=== PATIENT | male | born 1940 | race Caucasian/White ===

== ENCOUNTER 2021-10-31 16:25 | Observation (INO) | payer OTHER, SELFPAY ==
--- NOTE | 2021-10-31 16:50 | DI.RAD.S_ITS ---
PROCEDURE: XR CHEST 1V INDICATIONS: chest pain TECHNIQUE: One view of the chest was acquired. COMPARISON: None. FINDINGS: Surgical changes and devices: None. Lungs and pleura: Lungs are clear. No pleural effusions or pneumothorax. Mediastinum: Mediastinal contours appear normal. Heart size is normal. Bones and chest wall: No suspicious bony lesions. Overlying soft tissues appear unremarkable. IMPRESSION: No acute cardiopulmonary abnormality. Dictated by: Sukumar Kennedy M.D. on 10/31/2021 at 16:54 Approved by: Sukumar Kennedy M.D. on 10/31/2021 at 16:54
[2021-10-31] MEDS: SODIUM CHLORIDE 0.9% 1,000 ML 1000 ML IV (17:20)
[2021-10-31 17:22] VITALS: BP 166/77; PULSE 116; RESP 24; TEMP 39.3; O2SAT 95; BMI 30.3
[2021-10-31 17:39] LABS: Add Manual Diff / Slide Review NO; Basophils Absolute Auto 100 /uL (0-100); Basophils Percent Auto 0.4 % (0-2); Eosinophils Absolute Auto 0 /uL (0-450); Eosinophils Percent Auto 0.2 % (2-4); Hematocrit 41.1 % (41-53); Hemoglobin 13.5 g/dL (13.5-17.5); Lymphocytes Absolute Auto 400 /uL (1100-4500); Lymphocytes Percent Auto 2.5 % (25-40); Mean Corpuscular HGB Conc 32.8 % (30-36); Mean Corpuscular Hemoglobin 33.5 PG (26-34); Monocytes Absolute Auto 300 /uL (0-900); Neutrophils Absolute Auto 15500 /uL (1500-7000); Neutrophils Percent Auto 94.9 % (50-75); Platelet Count 205 X10^3/uL (150-400); Red Blood Cell Count 4.03 X10^6/uL (4.5-5.9); Red Cell Distribution Width 14.7 % (11.6-14.8); White Blood Cell Count 16.4 X10^3/uL (4.5-11.0)
[2021-10-31 18:09] LABS: Alanine Aminotransferase 20 IU/L (<50); Albumin 4.1 g/dL (3.5-5.0); Albumin Globulin Ratio 1.3 (1.0-2.8); Alkaline Phosphatase 63 U/L (38-126); Aspartate Aminotransferase 39 IU/L (17-59); BUN Creatinine Ratio 17.8 (6-22); Bilirubin Total 0.8 mg/dL (0.2-1.3); Blood Urea Nitrogen 31 mg/dL (9-20); Calcium 8.9 mg/dL (8.4-10.2); Carbon Dioxide 16 mmol/L (22-32); Chloride 109 mmol/L (98-107); Estimated Glomerular Filt Rate 39 mL/min (>60); Globulin 3.2 g/dL (1.7-4.1); Glucose 184 mg/dL (80-110); Lipase 267 U/L (23-300); Potassium 4.7 mmol/L (3.4-5.1); Sodium 139 mmol/L (137-145); Total Protein 7.3 g/dL (6.3-8.2)
[2021-10-31 18:12] LABS: HEMOLYSIS 89 (0-50)
--- NOTE | 2021-10-31 18:15 | ED.GENADULT ---
HPI - General Adult General Chief complaint: Fever Stated complaint: Tremors Time Seen by Provider: 10/31/21 17:59 Source: patient and family Mode of arrival: Wheelchair History of Present Illness HPI narrative: 81-year-old male. Is an insulin-dependent diabetic. Was at his normal state of health when he was walking and had a sudden onset of what he states for tremors. States it started not feel very well when the symptoms started. It did involve both his upper and lower extremities. Symptoms lasted about 1.5 hours. He reported no chest pain, palpitations, vision changes, headache, shortness of breath, abdominal pain, nausea vomiting, urinary symptoms or skin rash. He does have back pain but this is not new for him. He currently feels much better than when the symptoms were present. Has not tried anything for symptoms prior to arrival. Related Data Home Medications Medication Instructions Recorded Confirmed allopurinol 100 mg tablet 100 mg PO BEDTIME 10/31/21 10/31/21 atorvastatin 10 mg tablet 10 mg PO BEDTIME 10/31/21 10/31/21 bupropion HCl 150 mg tablet,12 hr 150 mg PO BEDTIME 10/31/21 10/31/21 sustained-release dulaglutide 0.75 mg/0.5 mL 0.75 mg SUBCUT QWEEK 10/31/21 10/31/21 subcutaneous pen injector (Trulicity) finasteride 5 mg tablet 5 mg PO BEDTIME 10/31/21 10/31/21 glyburide 5 mg tablet 6 mg PO DAILY 10/31/21 10/31/21 insulin glargine 100 unit/mL (3 28 unit SUBCUT QPM 10/31/21 10/31/21 mL) subcutaneous pen (Lantus Solostar U-100 Insulin) lisinopril 10 mg tablet 10 mg PO DAILY 10/31/21 10/31/21 lisinopril 10 mg tablet 10 mg PO DAILY 10/31/21 10/31/21 tamsulosin 0.4 mg capsule 0.8 mg PO BEDTIME 10/31/21 10/31/21 Allergies Allergy/AdvReac Type Severity Reaction Status Date / Time No Known Drug Allergies Allergy Verified 10/31/21 18:41 Review of Systems Review of Systems ROS Unobtainable: All systems reviewed & are unremarkable except as noted in HPI and below Patient History Medical History Insulin dependent diabetes mellitus Social History household members: significant other Smoking Status: Never smoker alcohol intake: former Smoking Status: Never smoker alcohol intake frequency: 0-2 drinks per day Substance Use Type: does not use Exam Initial Vital Signs Initial Vital Signs: Vital Signs Temperature 102.7 F H 10/31/21 17:22 Pulse Rate 116 H 10/31/21 17:22 Respiratory Rate 24 10/31/21 17:22 Blood Pressure 166/77 H 10/31/21 17:22 Pulse Oximetry 95 10/31/21 17:22 Oxygen Delivery Method 10/31/21 17:22 Const General: cooperative, comfortable and well developed HENDE Head: normal to inspection and normocephalic Chest Chest: normal inspection of the chest Resp Effort & Inspection: normal respiratory effort Auscultation: clear to auscultation bilaterally Cardio Rate: regular rate Rhythm: regular rhythm GI Inspection: normal to inspection Palpation: soft and No tender Skin General: no rashes or lesions noted Neuro General: patient alert, patient awake, patient oriented x3 and moves all extremities Speech: speech normal Extrem General: normal to inspection and capillary refill normal Psych Appearance: grossly normal Scores GCS [place] coma scale eye opening: Spontaneous Karen coma scale verbal response: Orientated Karen coma scale motor response: Obey commands Karen coma scale total score: 15 Course Orders Ordered: ED Orders 10/31/21 16:50 XR chest 1V Stat EKG-12 Lead Stat 10/31/21 17:00 Complete Blood Count AUTO DIFF Stat Lactate (Lactic Acid) Stat 10/31/21 17:15 Blood Culture Stat 10/31/21 17:18 Comprehensive Metabolic Panel Stat Lipase Stat Procalcitonin Stat 10/31/21 18:39 COVID19 -Nasal RAPID/Pre-Proc Stat 10/31/21 19:21 Urine Culture Stat Urine Microscopic Stat Atorvastatin Calcium (Atorvastatin 20 Mg Tablet) 10 mg PO BEDTIME VINAY Last Admin: 10/31/21 23:44 Dose: 10 mg Documented By: VEENA Bupropion HCl (Bupropion Sr 150 Mg Tab) 150 mg PO BEDTIME VINAY Last Admin: 10/31/21 23:44 Dose: 150 mg Documented By: VEENA Dextrose (Dextrose 50 % In Water 25 Gm/50 Ml Syringe) 25 gm IV PRN PRN PRN Reason: Hypoglycemia Enoxaparin Sodium (Enoxaparin 30 Mg/0.3 Ml Syringe) 30 mg SUBCUT DAILY VINAY Finasteride (Finasteride 5 Mg Tablet) 5 mg PO BEDTIME VINAY Last Admin: 10/31/21 23:44 Dose: 5 mg Documented By: VEENA Sodium Chloride (Normal Saline 0.9%) 1,000 mls @ 100 mls/hr IV CONT VINAY Last Admin: 10/31/21 22:12 Dose: Not Given Documented By: VEENA Insulin Glargine (Insulin Glargine 100 Unit/Ml 3ml Pen) 28 unit SUBCUT BEDTIME VINAY Last Admin: 10/31/21 22:42 Dose: 28 unit Documented By: VEENA Co-signed By: GUIDO Insulin Human Lispro (Insulin Lispro 100 Unit/Ml 3ml Vial) 0 unit SUBCUT ACHS [facility]; Protocol Lisinopril (Lisinopril 10 Mg Tablet) 10 mg PO DAILY [facility] Tamsulosin HCl (Tamsulosin 0.4 Mg Capsule) 0.8 mg PO BEDTIME [facility] Last Admin: 10/31/21 23:44 Dose: 0.8 mg Documented By: VEENA Discontinued Medications Acetaminophen (Acetaminophen 325 Mg Tablet) 650 mg PO NOW ONE Stop: 10/31/21 18:11 Last Admin: 10/31/21 18:27 Dose: Not Given Documented By: HAL Amlodipine Besylate (Amlodipine 5 Mg Tablet) 5 mg PO BEDTIME [facility] Last Admin: 10/31/21 23:36 Dose: Not Given Documented By: VEENA Sodium Chloride (Normal Saline 0.9%) 1,000 mls @ 1,000 mls/hr IV BOLUS ONE Stop: 10/31/21 18:17 Last Infusion: 10/31/21 18:28 Dose: 0 mls/hr Documented By: Admin: 10/31/21 17:20 Dose: 1,000 mls/hr Documented By: HAL Vancomycin HCl (Vancomycin) 1,000 mg in 200 mls @ 200 mls/hr IV NOW ONE Stop: 10/31/21 19:06 Last Admin: 10/31/21 19:14 Dose: Not Given Documented By: HAL Ceftriaxone Sodium 1,000 mg/ (Sodium Chloride) 100 mls @ 200 mls/hr IV NOW ONE Stop: 10/31/21 18:08 Last Infusion: 10/31/21 19:13 Dose: 0 mls/hr Documented By: Admin: 10/31/21 18:35 Dose: 200 mls/hr Documented By: HAL Sodium Chloride (Normal Saline 0.9%) 1,000 mls @ 150 mls/hr IV CONT VINAY Last Infusion: 10/31/21 21:30 Dose: 100 mls/hr Documented By: Admin: 10/31/21 18:36 Dose: 150 mls/hr Documented By: HAL Vancomycin HCl/Dextrose (Vancomycin) 2,000 mg in 400 mls @ 200 mls/hr IV NOW ONE Stop: 10/31/21 20:38 Last Infusion: 10/31/21 21:02 Dose: 0 mls/hr Documented By: Admin: 10/31/21 19:15 Dose: 200 mls/hr Documented By: HAL Insulin Glargine (Insulin Glargine 100 Unit/Ml 3ml Pen) 28 unit SUBCUT QPM [facility] Tamsulosin HCl (Tamsulosin 0.4 Mg Capsule) 0.4 mg PO BEDTIME [facility] Last Admin: 10/31/21 23:48 Dose: Not Given Documented By: VEENA Vital Signs Vital signs: Vital Signs - 8 hr 10/31/21 17:22 10/31/21 18:29 Temperature 102.7 F H 99.6 F Pulse Rate 116 H 95 H Respiratory Rate 24 20 Blood Pressure 166/77 H 154/71 H Pulse Oximetry 95 98 Oxygen Delivery Method Room Air Room Air Medical Decision Making Lab Data Lab results reviewed: Yes I reviewed the patient's lab results. Result diagrams: 10/31/21 17:00 10/31/21 17:18 Labs: Lab Results 10/31/21 10/31/21 10/31/21 Range/Units 17:00 17:00 17:00 WBC 16.4 H (4.5-11.0) X10^3/uL RBC 4.03 L (4.5-5.9) X10^6/uL Hgb 13.5 (13.5-17.5) g/dL Hct 41.1 (41-53) % MCV 102.0 H (80-100) fL MCH 33.5 (26-34) PG MCHC 32.8 (30-36) % RDW 14.7 (11.6-14.8) % Plt Count 205 (150-400) X10^3/uL Neut % (Auto) 94.9 H (50-75) % Lymph % (Auto) 2.5 L (25-40) % [place] % (Auto) 2.0 L (3-14) % Eos % (Auto) 0.2 L (2-4) % Baso % (Auto) 0.4 (0-2) % Neut # (Auto) 23180 H (2158-5767) /uL Lymph # (Auto) 400 L (6952-8854) /uL [place] # (Auto) 300 (0-900) /uL Eos # (Auto) 0 (0-450) /uL Baso # (Auto) 100 (0-100) /uL Sodium Cancelled Potassium Cancelled Chloride Cancelled Carbon Dioxide Cancelled BUN Cancelled Creatinine Cancelled Estimated GFR Cancelled BUN/Creatinine Ratio Cancelled Glucose Cancelled Lactate 2.0 (0.7-2.1) mmol/L Calcium Cancelled Magnesium Cancelled Total Bilirubin Cancelled AST Cancelled ALT Cancelled Alkaline Phosphatase Cancelled Total Creatine Kinase Cancelled CK-MB (CK-2) Cancelled CK-MB (CK-2) Rel Index Cancelled Troponin I Cancelled Total Protein Cancelled Albumin Cancelled Globulin Cancelled Albumin/Globulin Ratio Cancelled Lipase Cancelled Procalcitonin (<0.5) ng/mL Urine RBC (0-5/HPF) Urine WBC (0-5/HPF) Ur Squamous Epith Cells (0-5/HPF) Amorphous Sediment Urine Bacteria (None) Ur Culture Indicated? SARS-CoV-2 (PCR) (Negative) 10/31/21 10/31/21 10/31/21 Range/Units 17:18 18:39 19:21 WBC (4.5-11.0) X10^3/uL RBC (4.5-5.9) X10^6/uL Hgb (13.5-17.5) g/dL Hct (41-53) % MCV (80-100) fL MCH (26-34) PG MCHC (30-36) % RDW (11.6-14.8) % Plt Count (150-400) X10^3/uL Neut % (Auto) (50-75) % Lymph % (Auto) (25-40) % [place] % (Auto) (3-14) % Eos % (Auto) (2-4) % Baso % (Auto) (0-2) % Neut # (Auto) (3123-7857) /uL Lymph # (Auto) (3456-7294) /uL [place] # (Auto) (0-900) /uL Eos # (Auto) (0-450) /uL Baso # (Auto) (0-100) /uL Sodium 139 Potassium 4.7 Chloride 109 H Carbon Dioxide 16 L BUN 31 H Creatinine 1.74 H Estimated GFR 39 L BUN/Creatinine Ratio 17.8 Glucose 184 H Lactate (0.7-2.1) mmol/L Calcium 8.9 Magnesium Total Bilirubin 0.8 AST 39 ALT 20 Alkaline Phosphatase 63 Total Creatine Kinase CK-MB (CK-2) CK-MB (CK-2) Rel Index Troponin I Total Protein 7.3 Albumin 4.1 Globulin 3.2 Albumin/Globulin Ratio 1.3 Lipase 267 Procalcitonin 0.75 H (<0.5) ng/mL Urine RBC 5-10/hpf H (0-5/HPF) Urine WBC 1-5/hpf (0-5/HPF) Ur Squamous Epith Cells None seen (0-5/HPF) Amorphous Sediment 3+ Urine Bacteria None seen (None) Ur Culture Indicated? Cult not indicated SARS-CoV-2 (PCR) Negative (Negative) Urine Dip Bedside Urine Glucose 1000 mg/dl Bedside Urine Bilirubin - Negative Bedside Urine Ketone - Negative Urine Specific [place] 1.020 Bedside Urine Occult Blood ++ Bedside Urine pH 6.0 Bedside Urine Protein + 30 Bedside Urine Urobilinogen - Negative Bedside Urine Nitrite - Negative Bedside Urine Leukocytes - Negative Esterase Point of care testing: Urine Dip Bedside Urine Glucose 1000 mg/dl Bedside Urine Bilirubin - Negative Bedside Urine Ketone - Negative Urine Specific [place] 1.020 Bedside Urine Occult Blood ++ Bedside Urine pH 6.0 Bedside Urine Protein + 30 Bedside Urine Urobilinogen - Negative Bedside Urine Nitrite - Negative Bedside Urine Leukocytes - Negative Esterase Imaging Data Chest x-ray: Radiologist's Impression: [address] [id number] XRay Report Signed Patient: Richie Manrique MR#: [id number] : 1940 Acct:[id number] Age/Sex: 81 / M Date of Service: 10/31/21 Loc: ED Accession Number: [id number] ?? Procedure: XR chest 1V Ordering Provider: Divya Parikh D.O. PROCEDURE:? XR CHEST 1V ? INDICATIONS:? chest pain ? TECHNIQUE:? One view of the chest was acquired.? ? COMPARISON:? None. ? FINDINGS:? ? Surgical changes and devices:? None.? ? Lungs and pleura:? Lungs are clear.? No pleural effusions or pneumothorax.? ? Mediastinum:? Mediastinal contours appear normal.? Heart size is normal.? ? Bones and chest wall:? No suspicious bony lesions.? Overlying soft tissues appear unremarkable.? ? IMPRESSION:? No acute cardiopulmonary abnormality. ? ? Dictated by: Sukumar Kennedy M.D. on 10/31/2021 at 16:54 ? ? Approved by: Sukumar Kennedy M.D. on 10/31/2021 at 16:54? ECG Data Attestation: I personally reviewed and interpreted this ECG as follows: Interpretation: Sinus tachycardia Ventricular rate 105 Normal axis Normal QRS Right bundle branch block Occasional PAC MDM Narrative Medical decision making narrative: I initiated care the patient after he had been in the emergency department for 1.5 hours. Was found to be tachycardic and febrile. Does have leukocytosis. His tachycardia and fever improved with Tylenol and fluids. Blood cultures were obtained. Urine culture obtained. Patient administered antibiotics. Does have an elevated procalcitonin. No specific source of infection found on workup. Given his age, history of diabetes, lack of definitive etiology patient does require admission to the hospital for antibiotics until blood cultures are resulted. I suspect that the tremors that brought him into the emergency department were actually rigors secondary to his fever which is concerning about bacteremia. Did consider a spinal etiology of his symptoms given his back pain but he states that his back pain that he is having is his baseline. Hold on any abdominal CT scan for now. Patient not hypotensive. Will hold on 30 cc/kilos fluid given his age and normal lactate and lack of hypotension. Discussed the need for admission the hospital inpatient expressed understanding and agreement. Discussed case with RAMON Spencer the [facility] provider who will admit for further evaluation and treatment. Discharge Plan Departure Patient Disposition: Admitted as Observation Clinical Impression: Fever of unknown origin, Insulin dependent diabetes mellitus Admit Date/Time: 10/31/21 20:39 Admit Provider: Kayley Spencer
[2021-10-31 18:25] LABS: Procalcitonin 0.75 ng/mL (<0.5)
[2021-10-31 18:29] VITALS: BP 154/71; PULSE 95; RESP 20; TEMP 37.6; O2SAT 98
[2021-10-31] MEDS: cefTRIAXone 1,000 MG in SODIUM CHLORIDE 0.9% 100 ML 200 MG IV (18:35)
[2021-10-31] MEDS: SODIUM CHLORIDE 0.9% 1,000 ML 150 ML IV (18:36)
[2021-10-31] MEDS: VANCOMYCIN 2,000 MG/400 ML PIGGYBACK 200 MG IV (19:15)
[2021-10-31 19:29] LABS: COVID19 -Nasal RAPID Negative (Negative)
[2021-10-31 20:37] LABS: Amorphous Sediment Urine 3+; Bacteria Urine None Seen; Culture Indicated Urine Cult Not Indicated; RBC Urine 5-10/HPF (0-5/HPF); Squamous Epithelial Cell Urine None Seen (0-5/HPF); WBC Urine 1-5/HPF (0-5/HPF)
[2021-10-31 20:45] VITALS: BP 122/57; PULSE 100; RESP 20; O2SAT 96
[2021-10-31 21:03] VITALS: BP 122/66; PULSE 104; RESP 20; TEMP 36.9; O2SAT 95
[2021-10-31 21:25] VITALS: BP 117/56; PULSE 95; RESP 20; TEMP 36.9; O2SAT 96
[2021-10-31 21:29] VITALS: BMI 31.9
[2021-10-31 22:39] LABS: C-Reactive Protein Quant 2.9 mg/dL (<1.0); Magnesium 1.7 mg/dL (1.6-2.3)
[2021-10-31] MEDS: INSULIN GLARGINE 100 UNIT/ML 3ML PEN 28 UNIT SUBCUT (22:42)
[2021-10-31 22:43] LABS: Hemoglobin A1C% w Est Avg Glu 6.9 % (4.0-6.0)
[2021-10-31 22:44] LABS: Lactate Dehydrogenase 349 U/L (313-618)
[2021-10-31 22:45] LABS: NT-proBNP (BNP-Adult 18+) 637 pg/mL (<450)
[2021-10-31 22:50] LABS: Erythrocyte Sedimentation Rate 22 MM/HR (0-15)
--- NOTE | 2021-10-31 22:53 | PC.ADMIT ---
[id number] [address] Admission Note: The patient,Richie Manrique,81 y/o, was given written information regarding hospital policies, unit procedures and contact persons. Patient's smoking status: Never smoker. Vital Signs - 8 hr 10/31/21 17:22 10/31/21 18:29 10/31/21 20:45 Temperature 102.7 F H 99.6 F Pulse Rate 116 H 95 H 100 H Respiratory Rate 24 20 20 Blood Pressure 166/77 H 154/71 H 122/57 L Pulse Oximetry 95 98 96 Oxygen Delivery Method Room Air Room Air Room Air Oxygen Flow Rate 10/31/21 21:03 10/31/21 21:25 10/31/21 22:50 Temperature 98.5 F 98.5 F Pulse Rate 104 H 95 H Respiratory Rate 20 20 Blood Pressure 122/66 117/56 L Pulse Oximetry 95 96 Oxygen Delivery Method Room Air Room Air Oxygen Flow Rate 0 Patient admitted to room 213 from ER per stretcher; able to stand up and walk to bed with SBA. Is alert and oriented. Very [place] and did not bring hearing aids with. Breath sounds CTA with RA sat of 96%. HRR; telemetry reading was SR w/1st degree AVB. Denies nausea. BT present and abdomen is soft. Denies dysuria, frequency or urgency with urination. Is able to move himself in bed. Denies use of AD at home but does report he sometimes gets dizzy when first getting out of bed. 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 States he has chronic back pain at 6/10 but declines pain medication. Is currently afebrile. Bilateral calf SCD's applied. Fall risk score is moderate and bed alarm is activated. Oriented to call light and bed controls.
[2021-10-31] MEDS: TAMSULOSIN 0.4 MG CAPSULE 0.8 MG PO (23:44)
[2021-10-31] MEDS: ATORVASTATIN 20 MG TABLET 10 MG PO (23:44)
[2021-10-31] MEDS: FINASTERIDE 5 MG TABLET PO (23:44)
[2021-10-31] MEDS: buPROPion SR 150 MG TAB PO (23:44)
[2021-11-01 00:50] VITALS: BP 103/52; PULSE 72; RESP 16; TEMP 37.2; O2SAT 96
--- NOTE | 2021-11-01 03:19 | PM.HP.1 ---
History of Present Illness History of Present Illness Date Patient Seen: 10/31/21 Time Patient Seen: 21:28 Chief complaint: Tremors Narrative: Mr. Richie Manrique is a pleasant 81-year-old male with a history of insulin-dependent diabetes, hypertension, hyperlipidemia, BPH, and arthritis. Who reports that while he was walking around outside earlier in the day he developed sudden onset of what he calls tremors, rigors He reports that he started not feel very well when the symptoms started.? It did involve both his upper and lower extremities.? Symptoms lasted about 1.5 hours.? He denies chest pain, palpitations, vision changes, headache, shortness of breath, cough, URI symptoms, abdominal pain, nausea vomiting, urinary symptoms, fever, body aches, chills, skin rash, recent illness, injury, trauma, illness exposure, changes to medication, changes diet, falls, or head injury. Patient reports that he has had diarrhea several times a week over the last couple weeks, denies blood in his stool or pain with stooling. He does suffer from frequency and urgency but denies dysuria or hematuria, takes Flomax. He does have back pain but this is not new for him.? Patient reports that he had COVID back in June and is fully vaccinated. Patient denies any previous history of stroke heart attack, cardiovascular, cardiopulmonary disorders, GI bleed, gastro intestinal diseases, denies any skin injuries infection or history of cellulitis, diabetic ulcers, diabetic infection complications, immunosuppressive medications, autoimmune or endocrine disorders. Patient was febrile when he presented to the ED with a temp of 102.7?, hypertensive BP 166/77, tachycardic HR 116, tachypneic R 24 with an O2 saturation of 95% on room air. Upon admit temp had decreased 99.6, BP 154/71, HR 95, R 20, O2 saturation 98% on room air. Patient is resting comfortably in bed denies pain or discomfort and is in no distress at this time. Patient has WBC 16.4, with a left shift neutrophils 15,500, chloride 109, BUN 31, HC03 16, creatinine 1.74, GFR 39- medical history of CKD unknown, or if this represents KELLY. Lactate, lipase, urinalysis, and COVID all within normal limits. Patient's procalcitonin positive 0.75. Patient's chest x-ray negative for any acute cardiopulmonary processes. In the emergency department patient met SIRS criteria, upon admit SOFA Score:1 because patient presented afebrile, hypertensive, tachycardic, tachypneic, with a leukocytosis and positive procalcitonin and history of insulin-dependent diabetes will admit for fever and leukocytosis of unknown etiology. Patient History Medical History (Updated 11/01/21 @ 03:37 by TATYANA Rankin) Arthritis Essential hypertension History of COVID-19 History of kidney stones Hyperlipidemia associated with type 2 diabetes mellitus Insulin dependent diabetes mellitus Surgical History (Updated 11/01/21 @ 03:37 by TATYANA Rankin) History of tonsillectomy Family & Social History Family History Mother Dementia Father Heart attack Social History: household members significant other Prior Living Arrangements House Safety & Behavioral: Feels Safe in Current Yes Environment Been Physically Hurt or No Threatened By a Person Tobacco & Substance use: Smoking Status Never smoker alcohol intake former alcohol intake frequency Quit 32 yrs ago Substance Use Type does not use Meds Home Medications and Allergies Home Medications Medication Instructions Recorded Confirmed Type allopurinol 100 mg tablet 100 mg PO BEDTIME 10/31/21 10/31/21 History atorvastatin 10 mg tablet 10 mg PO BEDTIME 10/31/21 10/31/21 History bupropion HCl 150 mg tablet,12 hr 150 mg PO BEDTIME 10/31/21 10/31/21 History sustained-release dulaglutide 0.75 mg/0.5 mL 0.75 mg SUBCUT QWEEK 10/31/21 10/31/21 History subcutaneous pen injector (Trulicity) finasteride 5 mg tablet 5 mg PO BEDTIME 10/31/21 10/31/21 History glyburide 5 mg tablet 6 mg PO DAILY 10/31/21 10/31/21 History insulin glargine 100 unit/mL (3 28 unit SUBCUT QPM 10/31/21 10/31/21 History mL) subcutaneous pen (Lantus Solostar U-100 Insulin) lisinopril 10 mg tablet 10 mg PO DAILY 10/31/21 10/31/21 History lisinopril 10 mg tablet 10 mg PO DAILY 10/31/21 10/31/21 History tamsulosin 0.4 mg capsule 0.8 mg PO BEDTIME 10/31/21 10/31/21 History Allergies Allergy/AdvReac Type Severity Reaction Status Date / Time No Known Drug Allergies Allergy Verified 10/31/21 18:41 Review of Systems Review of Systems Narrative: All 12 point systems reviewed with the patient and are negative except otherwise documented. Exam Vital Signs (past 8 hours): - 10/31/21 20:45 10/31/21 21:03 10/31/21 21:25 Temperature 98.5 F 98.5 F Pulse Rate 100 H 104 H 95 H Respiratory Rate 20 20 20 Blood Pressure 122/57 L 122/66 117/56 L Pulse Oximetry 96 95 96 Oxygen Delivery Method Room Air Room Air Oxygen Flow Rate 0 10/31/21 22:50 11/01/21 00:50 11/01/21 00:50 Temperature 98.9 F Pulse Rate 72 Respiratory Rate 16 Blood Pressure 103/52 L Pulse Oximetry 96 96 Oxygen Delivery Method Room Air Room Air Oxygen Flow Rate 0 0 Oxygen Delivery Method Room Air Oxygen Flow Rate 0 Narrative Exam Narrative: General: Patient is a well-developed, well-nourished in no distress at this time. HEENT: Normocephalic, atraumatic, extraocular muscles intact, oral pharynx is clear and mucous membranes are moist. Neck is supple and symmetric, trachea is midline, no adenopathy, no thyroid enlargement, nontender, no masses palpated. Negative for JVD Chest: Normal AP diameter and contour without kyphoscoliosis, no nasal flaring, retractions, or tachypneic labored Lungs: Auscultation of all lung mckeon are clear without adventitious sounds, wheezes, rhonchi, or rales. Cardio: S1 & S2 with regular rate and rhythm without murmur, rubs, or gallops, no carotid bruit, no cardiac pulsations present. Abdomen: Soft nontender, negative for organomegaly, or masses. Bowel sounds are present in all 4 quadrants without guarding or rebound, no CVA tenderness. Musculoskeletal: Muscle strength and tone are equal within normal limits, no deformity, crepitus, effusions, cyanosis, clubbing or edema present. Full range of motion intact radial and pedal pulses are normal. Skin: Warm dry and intact without rashes, ulcerations or petechiae. Neuro: Alert and orientated x3, strength is +5/5 in all extremities, sensation to touch intact, no gross deficits noted of cranial nerves. Psych: Patient has a well-kept appearance, appropriate affect, mental status attitude thought context and judgment are appropriate for age. Objective Labs Result Diagrams: 10/31/21 17:00 10/31/21 17:18 Labs: Laboratory Results - last 24 hr 10/31/21 10/31/21 10/31/21 17:00 17:00 17:00 WBC 16.4 H RBC 4.03 L Hgb 13.5 Hct 41.1 MCV 102.0 H MCH 33.5 MCHC 32.8 RDW 14.7 Plt Count 205 Neut % (Auto) 94.9 H Lymph % (Auto) 2.5 L Nicholas % (Auto) 2.0 L Eos % (Auto) 0.2 L Baso % (Auto) 0.4 Neut # (Auto) 07262 H Lymph # (Auto) 400 L Nicholas # (Auto) 300 Eos # (Auto) 0 Baso # (Auto) 100 ESR Sodium Cancelled Potassium Cancelled Chloride Cancelled Carbon Dioxide Cancelled BUN Cancelled Creatinine Cancelled Estimated GFR Cancelled BUN/Creatinine Ratio Cancelled Glucose Cancelled Hemoglobin A1c Lactate 2.0 Calcium Cancelled Magnesium Cancelled Total Bilirubin Cancelled AST Cancelled ALT Cancelled Alkaline Phosphatase Cancelled Lactate Dehydrogenase Total Creatine Kinase Cancelled CK-MB (CK-2) Cancelled CK-MB (CK-2) Rel Index Cancelled Troponin I Cancelled C-Reactive Protein NT-Pro-B Natriuret Pep Total Protein Cancelled Albumin Cancelled Globulin Cancelled Albumin/Globulin Ratio Cancelled Lipase Cancelled Procalcitonin Urine RBC Urine WBC Ur Squamous Epith Cells Amorphous Sediment Urine Bacteria Ur Culture Indicated? SARS-CoV-2 (PCR) 10/31/21 10/31/21 10/31/21 17:18 18:39 19:21 WBC RBC Hgb Hct MCV MCH MCHC RDW Plt Count Neut % (Auto) Lymph % (Auto) Nicholas % (Auto) Eos % (Auto) Baso % (Auto) Neut # (Auto) Lymph # (Auto) Nicholas # (Auto) Eos # (Auto) Baso # (Auto) ESR Sodium 139 Potassium 4.7 Chloride 109 H Carbon Dioxide 16 L BUN 31 H Creatinine 1.74 H Estimated GFR 39 L BUN/Creatinine Ratio 17.8 Glucose 184 H Hemoglobin A1c Lactate Calcium 8.9 Magnesium Total Bilirubin 0.8 AST 39 ALT 20 Alkaline Phosphatase 63 Lactate Dehydrogenase Total Creatine Kinase CK-MB (CK-2) CK-MB (CK-2) Rel Index Troponin I C-Reactive Protein NT-Pro-B Natriuret Pep Total Protein 7.3 Albumin 4.1 Globulin 3.2 Albumin/Globulin Ratio 1.3 Lipase 267 Procalcitonin 0.75 H Urine RBC 5-10/hpf H Urine WBC 1-5/hpf Ur Squamous Epith Cells None seen Amorphous Sediment 3+ Urine Bacteria None seen Ur Culture Indicated? Cult not indicated SARS-CoV-2 (PCR) Negative 10/31/21 10/31/21 10/31/21 22:15 22:15 22:15 WBC RBC Hgb Hct MCV MCH MCHC RDW Plt Count Neut % (Auto) Lymph % (Auto) Nicholas % (Auto) Eos % (Auto) Baso % (Auto) Neut # (Auto) Lymph # (Auto) Nicholas # (Auto) Eos # (Auto) Baso # (Auto) ESR 22 H Sodium Potassium Chloride Carbon Dioxide BUN Creatinine Estimated GFR BUN/Creatinine Ratio Glucose Hemoglobin A1c 6.9 H Lactate Calcium Magnesium Total Bilirubin AST ALT Alkaline Phosphatase Lactate Dehydrogenase Total Creatine Kinase CK-MB (CK-2) CK-MB (CK-2) Rel Index Troponin I C-Reactive Protein NT-Pro-B Natriuret Pep 637 H Total Protein Albumin Globulin Albumin/Globulin Ratio Lipase Procalcitonin Urine RBC Urine WBC Ur Squamous Epith Cells Amorphous Sediment Urine Bacteria Ur Culture Indicated? SARS-CoV-2 (PCR) 10/31/21 10/31/21 22:15 22:15 WBC RBC Hgb Hct MCV MCH MCHC RDW Plt Count Neut % (Auto) Lymph % (Auto) Nicholas % (Auto) Eos % (Auto) Baso % (Auto) Neut # (Auto) Lymph # (Auto) Nicholas # (Auto) Eos # (Auto) Baso # (Auto) ESR Sodium Potassium Chloride Carbon Dioxide BUN Creatinine Estimated GFR BUN/Creatinine Ratio Glucose Hemoglobin A1c Lactate Calcium Magnesium 1.7 Total Bilirubin AST ALT Alkaline Phosphatase Lactate Dehydrogenase 349 Total Creatine Kinase CK-MB (CK-2) CK-MB (CK-2) Rel Index Troponin I C-Reactive Protein 2.9 H NT-Pro-B Natriuret Pep Total Protein Albumin Globulin Albumin/Globulin Ratio Lipase Procalcitonin Urine RBC Urine WBC Ur Squamous Epith Cells Amorphous Sediment Urine Bacteria Ur Culture Indicated? SARS-CoV-2 (PCR) Assessment & Plan Assessment & Plan narrative: Mr. Richie Manrique is a pleasant 81-year-old male with a history of insulin-dependent diabetes, hypertension, hyperlipidemia, BPH, and arthritis who presented to the ED complaining of rigors and was found to be septic with a temp of 102.7?, hypertensive, tachycardic, tachypneic, with leukocytosis with a left shift, in KELLY and a positive procalcitonin of unknown etiology. 1. Sepsis of unknown etiology, resulting in KELLY, (Fever, leukocytosis, HTN, tachycardia, tachypneic), acute, present on admission -temp of 102.7?,BP 166/77, HR 116, RR 24. Repeat temp 99.6?, BP 154/71, HR 95, RR 20, O2 saturation 98% on room air. SOFA:1, Met SIRS criteria -improving temp 98.7?, BP 122/57, HR 100, R 20, O2 saturation 96% on room air - WBC 16.4,neutrophils 15,500, CRP 2.9, procalcitonin 0.75, ESR 22 -chloride 109, BUN 31, HC03 16, creatinine 1.74, GFR 39- no records for comparison -Lactate, lipase, LDH, urinalysis, COVID, CXR- are all WNL Mag 1.7, K 4.7 -Blood cultures- pending -Ordered Stool cultures - pt reported of several weeks of diarrhea -Repeat Lactate, CBC, CMP -Rocephin and vancomycin initiated in ED -patient hydrated in ED according to sepsis protocol -Manage fever, hydration NS @100cc/Hr -Tele 2. Insulin-dependent type 2 diabetes with related hyperlipidemia, chronic, present on admission -presenting blood sugar 184, A1c 6.9% -admitted under diabetic protocol -continue Lantus, placed on low-dose sliding scale, holding liver Trulicity- unclear if he is still taking -continue Lipitor 3. Hypertension, essential, uncontrolled acute on chronic, present on admission -continue finasteride and lisinopril 4. Depression, chronic, present on admission -continue bupropion 5. Overweight as evidence by BMI of 32, acute on chronic, present on admission -dietary consult deferred for diet exercise and lifestyle changes-until resolution of sepsis is resolved Code status:DNI Surrogate decision maker: Daughters: Manuela Bills & Keyonna Davenport COVID PCR:Negative COVID vaccination: Fully vaccinated and boosted DVT/VTE prophylaxis: Lovenox and SCDs Disposition: Patient admitted for observation, to determine etiology of sepsis KELLY fever and leukocytosis unknown etiology, expected length of stay less than 2 midnights. I have utilized all available immediate resources to obtain, update, or review the patient's current medications. I confirmed that the patient's advanced care plan is present, Code status is documented and/or surrogate decision maker is listed in the patient's medical record. Time Spent With Patient Critical Care time: I spent a total of [] minutes of critical care time on this patient's care today; this time is exclusive of procedural time.
[2021-11-01 06:00] VITALS: BP 100/57; PULSE 74; RESP 18; TEMP 36.3; O2SAT 97
[2021-11-01 06:17] LABS: Add Manual Diff / Slide Review NO; Basophils Absolute Auto 100 /uL (0-100); Basophils Percent Auto 0.5 % (0-2); Eosinophils Absolute Auto 100 /uL (0-450); Eosinophils Percent Auto 0.6 % (2-4); Hematocrit 34.2 % (41-53); Hemoglobin 11.5 g/dL (13.5-17.5); Lymphocytes Absolute Auto 1700 /uL (1100-4500); Lymphocytes Percent Auto 8.6 % (25-40); Mean Corpuscular HGB Conc 33.6 % (30-36); Mean Corpuscular Hemoglobin 33.8 PG (26-34); Mean Corpuscular Volume 100.5 fL (80-100); Monocytes Absolute Auto 1000 /uL (0-900); Neutrophils Absolute Auto 16400 /uL (1500-7000); Neutrophils Percent Auto 85.3 % (50-75); Platelet Count 179 X10^3/uL (150-400); Red Cell Distribution Width 14.6 % (11.6-14.8); White Blood Cell Count 19.2 X10^3/uL (4.5-11.0)
[2021-11-01] MEDS: SODIUM CHLORIDE 0.9% 1,000 ML 100 ML IV ×2 (06:18→16:08)
[2021-11-01 06:36] LABS: Lactate (Lactic Acid) 1.1 mmol/L (0.7-2.1)
[2021-11-01 06:37] LABS: Alanine Aminotransferase 15 IU/L (<50); Albumin Globulin Ratio 1.2 (1.0-2.8); Alkaline Phosphatase 51 U/L (38-126); Aspartate Aminotransferase 19 IU/L (17-59); BUN Creatinine Ratio 15.2 (6-22); Bilirubin Total 0.4 mg/dL (0.2-1.3); Blood Urea Nitrogen 27 mg/dL (9-20); Calcium 7.8 mg/dL (8.4-10.2); Carbon Dioxide 23 mmol/L (22-32); Chloride 108 mmol/L (98-107); Estimated Glomerular Filt Rate 38 mL/min (>60); Globulin 2.6 g/dL (1.7-4.1); Glucose 132 mg/dL (80-110); HEMOLYSIS < 15 (0-50); Potassium 4.1 mmol/L (3.4-5.1); Sodium 139 mmol/L (137-145); Total Protein 5.6 g/dL (6.3-8.2)
[2021-11-01 08:00] VITALS: BP 110/61; PULSE 63; RESP 17; TEMP 36.5; O2SAT 96
--- NOTE | 2021-11-01 08:07 | DIET.CONS2 ---
Dietary Inpatient Consultation Note Admission Date: 10/31/2021 20:39 81y M referred to nutrition for MNA score 11 (at risk for malnutrition). Pt reports weight loss of 6# over the past 3 months without reduction in PO intake. Pt 113kg c BMI 32. RD to monitor POs, no nutrition dx identified at this time. Diet: 10/31/21 Breakfast Carbohydrate Consistent Diet Diet Modifications: Carbohydrate level: Small (2 CHO) Bedtime snack: Yes Electronically Signed by: Cristin Khanna 11/01/21 08:07 Clinical Dietitian [address] [id number]
[2021-11-01] MEDS: lisinopriL 10 MG TABLET PO (08:28)
[2021-11-01] MEDS: ENOXAPARIN 30 MG/0.3 ML SYRINGE SUBCUT (08:29)
--- NOTE | 2021-11-01 09:14 | PC.NURSE ---
Assess- Patient is alert and oriented x3. He is [place] but is able to hear if you talk loud. He denies pain. Ate well at breakfast and is voiding per urinal. No temp at this time and denies body aches or chills.
[2021-11-01 09:18] LABS: Acinetobacter baumannii Not Detected (Not Detect); Candida albicans Not Detected (Not Detect); Candida glabrata Not Detected (Not Detect); Candida krusei Not Detected (Not Detect); Candida parapsilosis Not Detected (Not Detect); Candida tropicalis Not Detected (Not Detect); E. coli Not Detected (Not Detect); Enterobacter cloacae complex Not Detected (Not Detect); Enterobacteriaceae species Not Detected (Not Detect); Enterococcus species Not Detected (Not Detect); Haemophilus influenzae Not Detected (Not Detect); KPC (carbapenem-resist gene) Not Detected (Not Detect); Listeria monocytogenes Not Detected (Not Detect); Methicillin-resistant gene Not Detected (Not Detect); Neisseria meningitidis Not Detected (Not Detect); Proteus species Not Detected (Not Detect); Pseudomonas aeruginosa Not Detected (Not Detect); Serratia marcescens Not Detected (Not Detect); Staphylococcus species Not Detected (Not Detect); Streptococcus agalactiae (Gr B Not Detected (Not Detect); Streptococcus pneumonia Not Detected (Not Detect); Streptococcus pyogenes (Gr A) Not Detected (Not Detect); Streptococcus species Not Detected (Not Detect); Vancomycin-rest genes A/B Not Detected (Not Detect)
[2021-11-01 11:52] VITALS: BP 128/71; PULSE 64; RESP 16; TEMP 36.5; O2SAT 96
[2021-11-01] MEDS: INSULIN LISPRO 100 UNIT/ML 3ML VIAL SUBCUT (12:14)
--- NOTE | 2021-11-01 14:39 | PM.PN.1 ---
Subjective Subjective Date Patient Seen: 11/01/21 Interval history: Patient admitted with febrile syndrome, sepsis, KELLY. He has not had further fever since the ED feeling better on IV antibiotics. Cultures remain negative. Exam Vital Signs (past 8 hours): - 11/01/21 08:00 11/01/21 10:00 11/01/21 11:52 Temperature 97.7 F 97.7 F Pulse Rate 63 64 Respiratory Rate 17 16 Blood Pressure 110/61 128/71 Pulse Oximetry 96 96 Oxygen Delivery Method Room Air Oxygen Flow Rate 0 0 11/01/21 14:00 Temperature Pulse Rate Respiratory Rate Blood Pressure Pulse Oximetry Oxygen Delivery Method Room Air Oxygen Flow Rate Oxygen Delivery Method Room Air Oxygen Flow Rate 0 Narrative Exam Narrative: General: Alert and oriented, NAD Lungs: Clear Heart: Regular rhythm without murmur Abdomen: Nontender Extremities: No edema, no rash Objective Labs Result Diagrams: 11/01/21 06:07 11/01/21 06:07 Labs: Laboratory Results - last 24 hr 10/31/21 10/31/21 10/31/21 17:00 17:00 17:00 WBC 16.4 H RBC 4.03 L Hgb 13.5 Hct 41.1 MCV 102.0 H MCH 33.5 MCHC 32.8 RDW 14.7 Plt Count 205 Neut % (Auto) 94.9 H Lymph % (Auto) 2.5 L Gilmer % (Auto) 2.0 L Eos % (Auto) 0.2 L Baso % (Auto) 0.4 Neut # (Auto) 27512 H Lymph # (Auto) 400 L Gilmer # (Auto) 300 Eos # (Auto) 0 Baso # (Auto) 100 ESR Sodium Cancelled Potassium Cancelled Chloride Cancelled Carbon Dioxide Cancelled BUN Cancelled Creatinine Cancelled Estimated GFR Cancelled BUN/Creatinine Ratio Cancelled Glucose Cancelled Hemoglobin A1c Lactate 2.0 Calcium Cancelled Magnesium Cancelled Total Bilirubin Cancelled AST Cancelled ALT Cancelled Alkaline Phosphatase Cancelled Lactate Dehydrogenase Total Creatine Kinase Cancelled CK-MB (CK-2) Cancelled CK-MB (CK-2) Rel Index Cancelled Troponin I Cancelled C-Reactive Protein NT-Pro-B Natriuret Pep Total Protein Cancelled Albumin Cancelled Globulin Cancelled Albumin/Globulin Ratio Cancelled Lipase Cancelled Procalcitonin Urine RBC Urine WBC Ur Squamous Epith Cells Amorphous Sediment Urine Bacteria Ur Culture Indicated? A. baumannii (PCR) Luda albicans (PCR) C. glabrata (PCR) C. krusei (PCR) C. parapsilosis (PCR) C. tropicalis (PCR) SARS-CoV-2 (PCR) Enterobacteriac sp PCR E. cloacae complex PCR Enterococcus sp PCR E. coli (PCR) H. influenzae (PCR) Klebsiella oxytoca PCR Klebsiella pneumoniae List. monocytogenes PCR N. meningitidis (PCR) Proteus species (PCR) Serratia marcescens PCR Staphylococcus sp PCR Staph aureus (PCR) mecA-Methicil Res Gene Streptococcus sp PCR Group A Strep (PCR) Strep agalactiae (PCR) Strep pneumoniae (PCR) P. aeruginosa (PCR) Nathaniel/B-Vanco Res Genes KPC-Carbap Res Gene PCR 10/31/21 10/31/21 10/31/21 17:15 17:18 18:39 WBC RBC Hgb Hct MCV MCH MCHC RDW Plt Count Neut % (Auto) Lymph % (Auto) Gilmer % (Auto) Eos % (Auto) Baso % (Auto) Neut # (Auto) Lymph # (Auto) Gilmer # (Auto) Eos # (Auto) Baso # (Auto) ESR Sodium 139 Potassium 4.7 Chloride 109 H Carbon Dioxide 16 L BUN 31 H Creatinine 1.74 H Estimated GFR 39 L BUN/Creatinine Ratio 17.8 Glucose 184 H Hemoglobin A1c Lactate Calcium 8.9 Magnesium Total Bilirubin 0.8 AST 39 ALT 20 Alkaline Phosphatase 63 Lactate Dehydrogenase Total Creatine Kinase CK-MB (CK-2) CK-MB (CK-2) Rel Index Troponin I C-Reactive Protein NT-Pro-B Natriuret Pep Total Protein 7.3 Albumin 4.1 Globulin 3.2 Albumin/Globulin Ratio 1.3 Lipase 267 Procalcitonin 0.75 H Urine RBC Urine WBC Ur Squamous Epith Cells Amorphous Sediment Urine Bacteria Ur Culture Indicated? A. baumannii (PCR) Not detected Luda albicans (PCR) Not detected C. glabrata (PCR) Not detected C. krusei (PCR) Not detected C. parapsilosis (PCR) Not detected C. tropicalis (PCR) Not detected SARS-CoV-2 (PCR) Negative Enterobacteriac sp PCR Not detected E. cloacae complex PCR Not detected Enterococcus sp PCR Not detected E. coli (PCR) Not detected H. influenzae (PCR) Not detected Klebsiella oxytoca PCR Not detected Klebsiella pneumoniae Not detected List. monocytogenes PCR Not detected N. meningitidis (PCR) Not detected Proteus species (PCR) Not detected Serratia marcescens PCR Not detected Staphylococcus sp PCR Not detected Staph aureus (PCR) Not detected mecA-Methicil Res Gene Not detected Streptococcus sp PCR Not detected Group A Strep (PCR) Not detected Strep agalactiae (PCR) Not detected Strep pneumoniae (PCR) Not detected P. aeruginosa (PCR) Not detected Nathaniel/B-Vanco Res Genes Not detected KPC-Carbap Res Gene PCR Not detected 10/31/21 10/31/21 10/31/21 19:21 22:15 22:15 WBC RBC Hgb Hct MCV MCH MCHC RDW Plt Count Neut % (Auto) Lymph % (Auto) Gilmer % (Auto) Eos % (Auto) Baso % (Auto) Neut # (Auto) Lymph # (Auto) Gilmer # (Auto) Eos # (Auto) Baso # (Auto) ESR 22 H Sodium Potassium Chloride Carbon Dioxide BUN Creatinine Estimated GFR BUN/Creatinine Ratio Glucose Hemoglobin A1c Lactate Calcium Magnesium Total Bilirubin AST ALT Alkaline Phosphatase Lactate Dehydrogenase Total Creatine Kinase CK-MB (CK-2) CK-MB (CK-2) Rel Index Troponin I C-Reactive Protein NT-Pro-B Natriuret Pep 637 H Total Protein Albumin Globulin Albumin/Globulin Ratio Lipase Procalcitonin Urine RBC 5-10/hpf H Urine WBC 1-5/hpf Ur Squamous Epith Cells None seen Amorphous Sediment 3+ Urine Bacteria None seen Ur Culture Indicated? Cult not indicated A. baumannii (PCR) Luda albicans (PCR) C. glabrata (PCR) C. krusei (PCR) C. parapsilosis (PCR) C. tropicalis (PCR) SARS-CoV-2 (PCR) Enterobacteriac sp PCR E. cloacae complex PCR Enterococcus sp PCR E. coli (PCR) H. influenzae (PCR) Klebsiella oxytoca PCR Klebsiella pneumoniae List. monocytogenes PCR N. meningitidis (PCR) Proteus species (PCR) Serratia marcescens PCR Staphylococcus sp PCR Staph aureus (PCR) mecA-Methicil Res Gene Streptococcus sp PCR Group A Strep (PCR) Strep agalactiae (PCR) Strep pneumoniae (PCR) P. aeruginosa (PCR) Nathaniel/B-Vanco Res Genes KPC-Carbap Res Gene PCR 10/31/21 10/31/21 10/31/21 22:15 22:15 22:15 WBC RBC Hgb Hct MCV MCH MCHC RDW Plt Count Neut % (Auto) Lymph % (Auto) Gilmer % (Auto) Eos % (Auto) Baso % (Auto) Neut # (Auto) Lymph # (Auto) Gilmer # (Auto) Eos # (Auto) Baso # (Auto) ESR Sodium Potassium Chloride Carbon Dioxide BUN Creatinine Estimated GFR BUN/Creatinine Ratio Glucose Hemoglobin A1c 6.9 H Lactate Calcium Magnesium 1.7 Total Bilirubin AST ALT Alkaline Phosphatase Lactate Dehydrogenase 349 Total Creatine Kinase CK-MB (CK-2) CK-MB (CK-2) Rel Index Troponin I C-Reactive Protein 2.9 H NT-Pro-B Natriuret Pep Total Protein Albumin Globulin Albumin/Globulin Ratio Lipase Procalcitonin Urine RBC Urine WBC Ur Squamous Epith Cells Amorphous Sediment Urine Bacteria Ur Culture Indicated? A. baumannii (PCR) Luda albicans (PCR) C. glabrata (PCR) C. krusei (PCR) C. parapsilosis (PCR) C. tropicalis (PCR) SARS-CoV-2 (PCR) Enterobacteriac sp PCR E. cloacae complex PCR Enterococcus sp PCR E. coli (PCR) H. influenzae (PCR) Klebsiella oxytoca PCR Klebsiella pneumoniae List. monocytogenes PCR N. meningitidis (PCR) Proteus species (PCR) Serratia marcescens PCR Staphylococcus sp PCR Staph aureus (PCR) mecA-Methicil Res Gene Streptococcus sp PCR Group A Strep (PCR) Strep agalactiae (PCR) Strep pneumoniae (PCR) P. aeruginosa (PCR) Nathaniel/B-Vanco Res Genes KPC-Carbap Res Gene PCR 11/01/21 11/01/21 11/01/21 06:07 06:07 06:07 WBC 19.2 H RBC 3.40 L Hgb 11.5 L Hct 34.2 L MCV 100.5 H MCH 33.8 MCHC 33.6 RDW 14.6 Plt Count 179 Neut % (Auto) 85.3 H Lymph % (Auto) 8.6 L Gilmer % (Auto) 5.0 Eos % (Auto) 0.6 L Baso % (Auto) 0.5 Neut # (Auto) 62771 H Lymph # (Auto) 1700 Gilmer # (Auto) 1000 H Eos # (Auto) 100 Baso # (Auto) 100 ESR Sodium 139 Potassium 4.1 Chloride 108 H Carbon Dioxide 23 BUN 27 H Creatinine 1.78 H Estimated GFR 38 L BUN/Creatinine Ratio 15.2 Glucose 132 H Hemoglobin A1c Lactate 1.1 Calcium 7.8 L Magnesium Total Bilirubin 0.4 AST 19 ALT 15 Alkaline Phosphatase 51 Lactate Dehydrogenase Total Creatine Kinase CK-MB (CK-2) CK-MB (CK-2) Rel Index Troponin I C-Reactive Protein NT-Pro-B Natriuret Pep Total Protein 5.6 L Albumin 3.0 L Globulin 2.6 Albumin/Globulin Ratio 1.2 Lipase Procalcitonin Urine RBC Urine WBC Ur Squamous Epith Cells Amorphous Sediment Urine Bacteria Ur Culture Indicated? A. baumannii (PCR) Luda albicans (PCR) C. glabrata (PCR) C. krusei (PCR) C. parapsilosis (PCR) C. tropicalis (PCR) SARS-CoV-2 (PCR) Enterobacteriac sp PCR E. cloacae complex PCR Enterococcus sp PCR E. coli (PCR) H. influenzae (PCR) Klebsiella oxytoca PCR Klebsiella pneumoniae List. monocytogenes PCR N. meningitidis (PCR) Proteus species (PCR) Serratia marcescens PCR Staphylococcus sp PCR Staph aureus (PCR) mecA-Methicil Res Gene Streptococcus sp PCR Group A Strep (PCR) Strep agalactiae (PCR) Strep pneumoniae (PCR) P. aeruginosa (PCR) Nathaniel/B-Vanco Res Genes KPC-Carbap Res Gene PCR [facility] Medical History (Updated 11/01/21 @ 03:37 by TATYANA Rankin) Arthritis Essential hypertension History of COVID-19 History of kidney stones Hyperlipidemia associated with type 2 diabetes mellitus Insulin dependent diabetes mellitus Surgical History (Updated 11/01/21 @ 03:37 by TATYANA Rankin) History of tonsillectomy Family History Mother Dementia Father Heart attack Social History household members: significant other Smoking Status: Never smoker alcohol intake: former Assessment & Plan Assessment & Plan narrative: 1. Sepsis with acute end-organ failure, unknown source -presented with fever, tachycardia, elevated WBC and procalcitonin, elevated creatinine -patient does endorse chronic urinary symptoms and has BPH which raises possibility of acute prostatitis presenting this way -follow-up on blood and urine cultures -continue vancomycin and Rocephin empiric antibiotics -continue IV fluids 2. Acute kidney injury vs CKD -Cr 1.7, stable -continue sepsis treatment -hold lisinopril -follow daily labs 3. 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 Hypertension, essential, uncontrolled acute on chronic, present on admission -continue finasteride and lisinopril 5. Depression, chronic, present on admission -continue bupropion 6. Overweight as evidence by BMI of 32, acute on chronic, present on admission -dietary consult deferred for diet exercise and lifestyle changes-until resolution of sepsis is resolved Code status:DNI Surrogate decision maker: Daughters:? Manuela Bills & Keyonna Davenport COVID PCR:Negative COVID vaccination:? Fully vaccinated and boosted DVT/VTE prophylaxis:? Lovenox and SCDs Time Spent With Patient Critical Care time: I spent a total of [] minutes of critical care time on this patient's care today; this time is exclusive of procedural time.
--- NOTE | 2021-11-01 15:40 | CM.DANOTE ---
Patient is an 81 yo male who was admitted on 10/31/21 for fever and tremors. Pt has [employer] for insurance and his PCP is not listed. EMR was reviewed. Per MD, pt withhx of diabetes and tremors at baseline and fully COVID vaccinated but had COVID in June 2021 and admitted for sepsis with unknown etiology, cultures pending. SW met bedside with pt and Sig Other Sheba and explained role and pt somewhat [place] but confirms he lives in [place] alone but has supportive adult Dtrs as his DPOAs Manuela and Keyonna and support from his Sig Other. Pt denies any hx of HH or SNF and does not typically use DME for ambulation. Pt is active and drives and states he has not yet been OOB much since admission and therefore unsure if he is steady on his feet and at baseline yet. Pt and Sig Other do not anticipate any d/c needs but unclear pt's sepsis source and awaiting cultures to confirm safe for d/c with oral abx and r/o and IV-abx needs. Plan: SW to follow closely for cultures and cause of sepsis towards confirming safe d/c home with support and any further needs. ROMI Vital
[2021-11-01 16:00] VITALS: BP 156/83; PULSE 57; RESP 17; TEMP 36.5; O2SAT 97
[2021-11-01] MEDS: cefTRIAXone 1,000 MG in SODIUM CHLORIDE 0.9% 100 ML 200 MG IV (17:08)
[2021-11-01] MEDS: VANCOMYCIN 1,250 MG/250 ML PIGGYBACK 250 MG IV (17:45)
[2021-11-01 20:00] VITALS: BP 165/79; PULSE 59; RESP 15; TEMP 36.4; O2SAT 97
[2021-11-01] MEDS: buPROPion SR 150 MG TAB PO (20:20)
[2021-11-01] MEDS: FINASTERIDE 5 MG TABLET PO (20:20)
[2021-11-01] MEDS: INSULIN GLARGINE 100 UNIT/ML 3ML PEN 28 UNIT SUBCUT (20:20)
[2021-11-01] MEDS: ATORVASTATIN 20 MG TABLET 10 MG PO (20:21)
[2021-11-01] MEDS: TAMSULOSIN 0.4 MG CAPSULE 0.8 MG PO (20:21)
[2021-11-02] VITALS: BP 158/81; PULSE 83; RESP 16; TEMP 37; O2SAT 98
--- NOTE | 2021-11-02 00:50 | PC.NURSE ---
Patient is alert and oriented. Breath sounds CTA with RA sat of 97%. HRR w/telemetry reading of SB w/1st degree AVB + BBB (rate of 58). BP elevated at 165/79. Denies nausea. BT present and is passing flatus. Voiding per urinal; denies dysuria. Is able to turn himself in bed. Ambulated in lyn with SBA and appears strong and steady on feet. Endorses chronic 6/10 low back pain but declines offer of pain medication. Wearing bilateral calf SCD's. Fall risk score is moderate; bed alarm is activated although does call for staff assistance appropriately. Remains afebrile
[2021-11-02] MEDS: SODIUM CHLORIDE 0.9% 1,000 ML 100 ML IV (03:27)
[2021-11-02 04:00] VITALS: BP 161/86; PULSE 57; RESP 14; TEMP 37.6; O2SAT 98
[2021-11-02 05:13] VITALS: O2SAT 98
[2021-11-02 06:11] LABS: Add Manual Diff / Slide Review NO; Basophils Absolute Auto 100 /uL (0-100); Basophils Percent Auto 0.6 % (0-2); Eosinophils Absolute Auto 100 /uL (0-450); Eosinophils Percent Auto 1.1 % (2-4); Hematocrit 37.7 % (41-53); Hemoglobin 12.8 g/dL (13.5-17.5); Lymphocytes Absolute Auto 1400 /uL (1100-4500); Lymphocytes Percent Auto 13.1 % (25-40); Mean Corpuscular Hemoglobin 34.2 PG (26-34); Mean Corpuscular Volume 100.7 fL (80-100); Monocytes Absolute Auto 1000 /uL (0-900); Monocytes Percent Auto 9.1 % (3-14); Neutrophils Absolute Auto 8200 /uL (1500-7000); Neutrophils Percent Auto 76.1 % (50-75); Platelet Count 181 X10^3/uL (150-400); Red Blood Cell Count 3.74 X10^6/uL (4.5-5.9); Red Cell Distribution Width 14.6 % (11.6-14.8); White Blood Cell Count 10.7 X10^3/uL (4.5-11.0)
[2021-11-02 07:04] LABS: Alanine Aminotransferase 15 IU/L (<50); Albumin 3.3 g/dL (3.5-5.0); Albumin Globulin Ratio 1.2 (1.0-2.8); Alkaline Phosphatase 59 U/L (38-126); Aspartate Aminotransferase 23 IU/L (17-59); Bilirubin Total 0.3 mg/dL (0.2-1.3); Blood Urea Nitrogen 26 mg/dL (9-20); Calcium 8.1 mg/dL (8.4-10.2); Carbon Dioxide 20 mmol/L (22-32); Chloride 109 mmol/L (98-107); Estimated Glomerular Filt Rate 43 mL/min (>60); Globulin 2.8 g/dL (1.7-4.1); Glucose 135 mg/dL (80-110); HEMOLYSIS 22 (0-50); Potassium 4.5 mmol/L (3.4-5.1); Sodium 139 mmol/L (137-145); Total Protein 6.1 g/dL (6.3-8.2)
[2021-11-02 08:00] VITALS: BP 144/78; PULSE 68; RESP 16; TEMP 36.3; O2SAT 95
[2021-11-02] MEDS: INSULIN LISPRO 100 UNIT/ML 3ML VIAL SUBCUT (08:26)
[2021-11-02 08:27] VITALS: BP 161/86
[2021-11-02] MEDS: lisinopriL 10 MG TABLET PO (08:27)
[2021-11-02] MEDS: ENOXAPARIN 40 MG/0.4 ML SYRINGE SUBCUT (08:27)
--- NOTE | 2021-11-02 10:25 | PC.NURSE ---
Discharge Note Patient A&O, VSS, RA, no complaints of pain/discomfort. Discharge packet reviewed with patient, all questions/concerns addressed. PIV/TELE discontinued. Patient able to dress self and pack all belongings. Patient reminded to seed cone picker prescription at preferred pharmacy. Patient taken down via wheelchair to POV.
--- NOTE | 2021-11-02 10:35 | P.DS_ITS ---
History of Present Illness History of Present Illness Chief complaint: Tremors Narrative: 81-year-old male with a history of insulin-dependent diabetes, hypertension, hyperlipidemia, BPH, and arthritis.? Who reports that while he was walking around outside earlier in the day he developed sudden onset of what he calls tremors, rigors He reports that he started not feel very well when the symptoms started.? It did involve both his upper and lower extremities.? Symptoms lasted about 1.5 hours.? He denies chest pain, palpitations, vision changes, headache, shortness of breath, cough, URI symptoms, abdominal pain, nausea vomiting, urinary symptoms, fever, body aches, chills, skin rash, recent illness, injury, trauma, illness exposure, changes to medication, changes diet, falls, or head injury.? Patient reports that he has had diarrhea several times a week over the last couple weeks, denies blood in his stool or pain with stooling.? He does suffer from frequency and urgency but denies dysuria or hematuria, takes Flomax.? He does have back pain but this is not new for him.? Patient reports that he had COVID back in June and is fully vaccinated.? Patient denies any previous history of stroke heart attack, cardiovascular,? cardiopulmonary disorders, GI bleed, gastro intestinal diseases, denies any skin injuries infection or history of cellulitis, diabetic ulcers, diabetic infection complications, immunosuppressive medications, autoimmune or endocrine disorders. Patient was febrile when he presented to the ED with a temp of 102.7?, hypertensive BP 166/77, tachycardic HR 116, tachypneic R 24 with an O2 saturation of 95% on room air.? Upon admit temp had decreased 99.6, BP 154/71, HR 95, R 20, O2 saturation 98% on room air.? Patient is resting comfortably in bed denies pain or discomfort and is in no distress at this time.? Patient has WBC 16.4, with a left shift neutrophils 15,500, chloride 109, BUN 31, HC03 16, creatinine 1.74, GFR 39- medical history of CKD unknown, or if this represents KELLY.? Lactate, lipase, urinalysis, and COVID all within normal limits.? Patient's procalcitonin positive? 0.75.? Patient's chest x-ray negative for any acute cardiopulmonary processes.? In the emergency department patient met SIRS criteria, upon admit SOFA Score:1 because patient presented afebrile, hypertensive, tachycardic, tachypneic, with a leukocytosis and positive procalcitonin and history of insulin-dependent diabetes will admit for fever and leukocytosis of unknown etiology. Discharge Providers Provider Date of admission: 10/31/21 20:39 Discharge Date: 11/02/21 Consults: 10/31/21 21:21 Consult to Dietitian, Adult Routine Comment: Reason For Exam: BMI 30.3, IDDM 10/31/21 21:40 Consult to Dietitian, Adult Routine Comment: Reason For Exam: mna score = 11 Discharge provider: Shine Stern MD Summary Hospital Course Discharge Diagnosis: 1. Sepsis with acute end-organ failure 2. Acute kidney injury 3. Chronic kidney disease 4. Insulin dependent type 2 diabetes Hospital Course: Patient presented with fever and evidence of sepsis from unknown source. He was started on broad-spectrum antibiotics with vancomycin and Rocephin and subsequently defervesced with improvement in WBC and sepsis parameters. His blood and urine cultures preliminary remain negative after 2 days. See history of BPH, on tamsulosin, raising suspicion for acute prostatitis as etiology of his I am discharging him on ciprofloxacin to treat possible acute prostatitis. Status at Discharge Cognitive/behavioral status at discharge: oriented Functional status at discharge: independent ambulation Overall status at discharge: patient is back to baseline Time Spent with Patient Time spent: Less than 30 minutes Exam Vital Signs (past 8 hours): - 11/02/21 04:00 11/02/21 05:13 11/02/21 08:27 Temperature 99.6 F Pulse Rate 57 L Respiratory Rate 14 Blood Pressure 161/86 H 161/86 H Pulse Oximetry 98 98 Oxygen Delivery Method Room Air Oxygen Flow Rate 0 0 11/02/21 08:00 Temperature 97.3 F L Pulse Rate 68 Respiratory Rate 16 Blood Pressure 144/78 H Pulse Oximetry 95 Oxygen Delivery Method Oxygen Flow Rate 0 Oxygen Delivery Method Room Air Oxygen Flow Rate 0 Narrative Exam Narrative: General: He is a alert since male who is hard of hearing, not in any acute distress. Objective Labs Result Diagrams: 11/02/21 05:47 11/02/21 05:47 Labs: Laboratory Results - last 24 hr 11/02/21 11/02/21 05:47 05:47 WBC 10.7 RBC 3.74 L Hgb 12.8 L Hct 37.7 L MCV 100.7 H MCH 34.2 H MCHC 34.0 RDW 14.6 Plt Count 181 Neut % (Auto) 76.1 H Lymph % (Auto) 13.1 L Edwards % (Auto) 9.1 Eos % (Auto) 1.1 L Baso % (Auto) 0.6 Neut # (Auto) 8200 H Lymph # (Auto) 1400 Edwards # (Auto) 1000 H Eos # (Auto) 100 Baso # (Auto) 100 Sodium 139 Potassium 4.5 Chloride 109 H Carbon Dioxide 20 L BUN 26 H Creatinine 1.62 H Estimated GFR 43 L BUN/Creatinine Ratio 16.0 Glucose 135 H Calcium 8.1 L Total Bilirubin 0.3 AST 23 ALT 15 Alkaline Phosphatase 59 Total Protein 6.1 L Albumin 3.3 L Globulin 2.8 Albumin/Globulin Ratio 1.2 PFSH Medical History (Updated 11/01/21 @ 03:37 by TATYANA Rankin) Arthritis Essential hypertension History of COVID-19 History of kidney stones Hyperlipidemia associated with type 2 diabetes mellitus Insulin dependent diabetes mellitus Surgical History (Updated 11/01/21 @ 03:37 by TATYANA Rankin) History of tonsillectomy Family History Mother Dementia Father Heart attack Social History household members: significant other Smoking Status: Never smoker alcohol intake: former Discharge Plan Discharge Plan Patient Disposition: Home Provider Discharge Comment: You were treated for fever of unknown source, possibly prostatitis. Take oral antiotic as directed. Return to ED if having recurrent fever or chills. Discharge orders & Medications Prescriptions: New ciprofloxacin HCl [Cipro] 250 mg tablet 250 mg PO BID 12 Days Qty: 24 0RF Continued insulin glargine [Lantus Solostar U-100 Insulin] 100 unit/mL (3 mL) Insulin Pen 28 unit SUBCUT QPM bupropion HCl 150 mg Tablet Sustained-Release 12 Hr 150 mg PO BEDTIME atorvastatin 10 mg Tablet 10 mg PO BEDTIME allopurinol 100 mg Tablet 100 mg PO BEDTIME tamsulosin 0.4 mg Capsule 0.8 mg PO BEDTIME finasteride 5 mg Tablet 5 mg PO BEDTIME Trulicity 0.75 mg/0.5 mL Pen Injector 0.75 mg SUBCUT QWEEK glyburide 5 mg Tablet 6 mg PO DAILY lisinopril 10 mg Tablet 10 mg PO DAILY lisinopril 10 mg Tablet 10 mg PO DAILY Diet/Activity/Treatments Diet: Carb-consistent/Diabetic Discharge Data Attending Provider: Kayley Spencer
== END 2021-11-02 10:25 | disposition home or self-care (01) | DRG 872 ==
LOC: ED 20:28 → AC 11-01 08:15
PROVIDERS: Emergency Medicine; Admitting Provider Nurse Practitioner Family; Emergency Provider Emergency Medicine; Visit Provider Nurse Practitioner Family
DX: A41.9 Sepsis, unspecified organism (principal); N17.9 Acute kidney failure, unspecified; N41.0 Acute prostatitis; R65.20 Severe sepsis without septic shock; N18.9 Chronic kidney disease, unspecified; E78.5 Hyperlipidemia, unspecified; F32.A Depression, unspecified; N40.1 Benign prostatic hyperplasia with lower urinary tract symptoms; E11.22 Type 2 diabetes mellitus with diabetic chronic kidney disease; I12.9 Hypertensive chronic kidney disease with stage 1 through stage 4 chronic kidney disease, or unspecified chronic kidney disease; Z79.899 Other long term (current) drug therapy; Z20.822 Contact with and (suspected) exposure to COVID-19; Z79.4 Long term (current) use of insulin; E66.3 Overweight; Z68.32 Body mass index [BMI] 32.0-32.9, adult
CPT/HCPCS: 36415; 71045; 80053; 81003; 81015; 82962; 83036; 83605; 83615; 83690; 83735; 83880; 84145; 85025; 85651; 86140; 87040; 87077; 87086; 87150; 87185; 87186; 87635; 93005; 96365; 96366; 96367; 99284; C9803; G0378; J0696; J1650; J1815

== ENCOUNTER 2022-06-13 17:56 | Observation (INO) | payer OTHER, SELFPAY ==
[2022-06-13] VITALS (11 sets, daily range): BP systolic 104–176; BP diastolic 55–109; PULSE 80–130; RESP 15–26; TEMP 36.7–37.4; O2SAT 88–97; BMI 33.9
--- NOTE | 2022-06-13 18:12 | DI.RAD.S_ITS ---
PROCEDURE: XR CHEST 1V INDICATIONS: suspected sepsis TECHNIQUE: One view of the chest was acquired. COMPARISON: [facility], CR, XR CHEST 1V, 10/31/2021, 16:48. FINDINGS: Surgical changes and devices: None. Lungs and pleura: Lungs are clear. No pleural effusions or pneumothorax. Mediastinum: Mediastinal contours appear normal. Heart size is mildly enlarged. Bones and chest wall: No suspicious bony lesions. Overlying soft tissues appear unremarkable. IMPRESSION: No acute pulmonary process. Dictated by: Riana Vu M.D. on 06/13/2022 at 19:06 Approved by: Riana Vu M.D. on 06/13/2022 at 19:06
--- NOTE | 2022-06-13 18:27 | ED.GENADULT ---
HPI - General Adult General Chief complaint: Fever Stated complaint: Hot and Cold and shakes, Temp 99.1 Time Seen by Provider: 06/13/22 18:21 Source: patient Mode of arrival: Wheelchair Limitations: no limitations History of Present Illness HPI narrative: Patient is an 81-year-old male who is here for evaluation of 1-2 days of feeling hot and cold. Having shakes and fever. He denies chest pain. No shortness of breath. Abdominal pain. No skin rashes. No headache. No neck pain. No sinus congestion. He is an insulin-dependent diabetic. He denies any vomiting. No recent travel. No recent antibiotics. No known sick contacts. Related Data Home Medications Medication Instructions Recorded Confirmed allopurinol 100 mg tablet 100 mg PO BEDTIME 10/31/21 06/13/22 atorvastatin 10 mg tablet 10 mg PO BEDTIME 10/31/21 06/13/22 bupropion HCl 150 mg tablet,12 hr 150 mg PO BEDTIME 10/31/21 06/13/22 sustained-release finasteride 5 mg tablet 5 mg PO BEDTIME 10/31/21 06/13/22 insulin glargine 100 unit/mL (3 28 unit SUBCUT QPM 10/31/21 06/13/22 mL) subcutaneous pen (Lantus Solostar U-100 Insulin) lisinopril 10 mg tablet 10 mg PO BEDTIME 10/31/21 06/13/22 doxazosin 8 mg tablet 8 mg PO DAILY 06/13/22 06/13/22 dulaglutide 1.5 mg/0.5 mL 1.5 mg SUBCUT WEEKLY 06/13/22 06/13/22 subcutaneous pen injector (Trulicity) metformin 500 mg tablet,extended 500 mg PO BEDTIME 06/13/22 06/13/22 release 24 hr sodium bicarbonate 650 mg tablet 650 mg BID 06/13/22 06/13/22 Allergies Allergy/AdvReac Type Severity Reaction Status Date / Time No Known Drug Allergies Allergy Verified 06/13/22 18:07 Review of Systems Review of Systems ROS Unobtainable: All systems reviewed & are unremarkable except as noted in HPI and below Patient History Medical History Arthritis Essential hypertension History of COVID-19 History of kidney stones Hyperlipidemia associated with type 2 diabetes mellitus Insulin dependent diabetes mellitus Surgical History (Updated 11/01/21 @ 03:37 by TATYANA Rankin) History of tonsillectomy Family History Mother Dementia Father Heart attack Social History household members: significant other Smoking Status: Never smoker alcohol intake: current Smoking Status: Never smoker alcohol intake frequency: 0-2 drinks per day Substance Use Type: does not use Exam Initial Vital Signs Initial Vital Signs: Vital Signs Temperature 98.1 F 06/13/22 18:02 Pulse Rate 124 H 06/13/22 18:02 Respiratory Rate 22 06/13/22 18:02 Blood Pressure 176/109 H 06/13/22 18:02 Pulse Oximetry 97 06/13/22 18:02 Oxygen Delivery Method Room Air 06/13/22 18:02 Const General: cooperative, comfortable and No ill appearing HENMT Head: normal to inspection and normocephalic Resp Effort & Inspection: tachypneic Auscultation: clear to auscultation bilaterally Cardio Rate: tachycardic Rhythm: regular rhythm GI Inspection: normal to inspection and non-distended Skin General: no rashes or lesions noted Neuro General: patient alert, patient awake, patient oriented x3 and moves all extremities Cognition: normal cognition Speech: speech normal Extrem General: normal to inspection and capillary refill normal Scores GCS [place] coma scale eye opening: Spontaneous Karen coma scale verbal response: Orientated Karen coma scale motor response: Obey commands [place] coma scale total score: 15 Course Orders Ordered: ED Orders 06/13/22 18:09 Respiratory Panel (Film Array) Stat 06/13/22 18:12 XR chest 1V Stat EKG-12 Lead Stat 06/13/22 18:30 Complete Blood Count AUTO DIFF Stat Comprehensive Metabolic Panel Stat Lactate (Lactic Acid) Stat Lipase Stat PTT Partial Thromboplastin Rickey Stat Procalcitonin Stat Prothrombin Time INR Stat 06/13/22 19:20 Blood Culture Stat Acetaminophen (Acetaminophen 325 Mg Tablet) 650 mg PO Q6H PRN PRN Reason: Fever/Mild Pain (1-3) Dextrose (Dextrose 50 % In Water 25 Gm/50 Ml Syringe) 25 gm IV PRN PRN PRN Reason: Hypoglycemia Heparin Sodium (Porcine) (Heparin 5,000 Unit/Ml Vial) 5,000 unit SUBCUT BID VINAY Last Admin: 06/13/22 22:21 Dose: 5,000 unit Documented By: TLS Ceftriaxone Sodium 1,000 mg/ (Sodium Chloride) 100 mls @ 200 mls/hr IV Q24H VINAY Vancomycin HCl/Dextrose (Vancomycin) 1,500 mg in 300 mls @ 200 mls/hr IV Q24H [facility] Insulin Glargine (Insulin Glargine 100 Unit/Ml 3ml Pen) 28 unit SUBCUT QPM VINAY Insulin Human Lispro (Insulin Lispro 100 Unit/Ml 3ml Vial) 0 unit SUBCUT ACHS VINAY; Protocol Last Admin: 06/13/22 22:10 Dose: Not Given Documented By: TLS Naloxone HCl (Naloxone 0.4 Mg/Ml Vial) 0.2 mg IV Q2MIN PRN PRN Reason: Opiate Reversal Ondansetron HCl (Ondansetron 4 Mg/2 Ml Inj) 4 mg IV Q8HR PRN PRN Reason: Nausea And Vomiting Vancomycin HCl (Vancomycin Per Pharmacy) 1 request MISC NOW ONE Stop: 06/13/22 21:30 Discontinued Medications Sodium Chloride (Normal Saline 0.9%) 1,000 mls @ 1,000 mls/hr IV BOLUS ONE Stop: 06/13/22 19:11 Last Infusion: 06/13/22 19:37 Dose: 0 mls/hr Documented By: Admin: 06/13/22 18:28 Dose: 1,000 mls/hr Documented By: AT Ceftriaxone Sodium 1,000 mg/ (Sodium Chloride) 100 mls @ 200 mls/hr IV NOW ONE Stop: 06/13/22 18:29 Last Infusion: 06/13/22 20:02 Dose: 0 mls/hr Documented By: Admin: 06/13/22 19:26 Dose: 200 mls/hr Documented By: KH Sodium Chloride (Normal Saline 0.9%) 1,000 mls @ 1,000 mls/hr IV BOLUS ONE Stop: 06/13/22 20:07 Last Infusion: 06/13/22 21:07 Dose: 0 mls/hr Documented By: Admin: 06/13/22 19:37 Dose: 1,000 mls/hr Documented By: HEVER Vancomycin HCl (Vancomycin) 1,000 mg in 200 mls @ 200 mls/hr IV NOW ONE Stop: 06/13/22 20:35 Last Infusion: 06/13/22 21:12 Dose: 0 mls/hr Documented By: Admin: 06/13/22 19:59 Dose: 200 mls/hr Documented By: HEVER Vancomycin HCl (Vancomycin) 1,000 mg in 200 mls @ 200 mls/hr IV NOW ONE Stop: 06/13/22 22:59 Last Admin: 06/13/22 22:21 Dose: 200 mls/hr Documented By: ARIANNA Ondansetron HCl (Ondansetron 4 Mg Odt) 4 mg SL NOW PRN PRN Reason: Nausea And Vomiting Ondansetron HCl (Ondansetron 4 Mg/2 Ml Inj) 4 mg IV NOW PRN PRN Reason: Nausea And Vomiting Vital Signs Vital signs: Vital Signs - 8 hr 06/13/22 18:02 06/13/22 18:24 06/13/22 18:24 Temperature 98.1 F 98.8 F Pulse Rate 124 H 130 H Respiratory Rate 22 20 Blood Pressure 176/109 H Pulse Oximetry 97 94 Oxygen Delivery Method Room Air 06/13/22 18:30 06/13/22 18:30 06/13/22 19:00 Temperature Pulse Rate 124 H 97 H Respiratory Rate 19 18 Blood Pressure 119/60 Pulse Oximetry 94 93 Oxygen Delivery Method Room Air 06/13/22 19:37 06/13/22 19:30 06/13/22 19:30 Temperature 99.3 F Pulse Rate 91 H Respiratory Rate 16 Blood Pressure 114/55 L Pulse Oximetry 93 Oxygen Delivery Method 06/13/22 20:00 06/13/22 20:00 06/13/22 20:30 Temperature Pulse Rate 86 Respiratory Rate 15 Blood Pressure 112/58 L 112/65 Pulse Oximetry 96 Oxygen Delivery Method 06/13/22 20:30 Temperature Pulse Rate 90 Respiratory Rate 26 H Blood Pressure Pulse Oximetry 88 L Oxygen Delivery Method Medical Decision Making Lab Data Lab results reviewed: Yes I reviewed the patient's lab results. 06/13/22 18:30 06/13/22 18:30 Labs: Lab Results 06/13/22 06/13/22 06/13/22 Range/Units 18:09 18:30 18:30 WBC 9.9 (4.5-11.0) X10^3/uL RBC 3.95 L (4.5-5.9) X10^6/uL Hgb 13.3 L (13.5-17.5) g/dL Hct 39.3 L (41-53) % MCV 99.3 (80-100) fL MCH 33.6 (26-34) PG MCHC 33.8 (30-36) % RDW 14.3 (11.6-14.8) % Plt Count 166 (150-400) X10^3/uL Neut % (Auto) 97.0 H (50-75) % Lymph % (Auto) 2.4 L (25-40) % [place] % (Auto) 0.3 L (3-14) % Eos % (Auto) 0.0 L (2-4) % Baso % (Auto) 0.3 (0-2) % Neut # (Auto) 9600 H (2207-9365) /uL Lymph # (Auto) 200 L (7626-3579) /uL [place] # (Auto) 0 (0-900) /uL Eos # (Auto) 0 (0-450) /uL Baso # (Auto) 0 (0-100) /uL PT 13.5 H (10.1-12.7) SECONDS INR 1.2 (0.9-1.3) APTT 26 (26-36) SECONDS Sodium (137-145) mmol/L Potassium (3.4-5.1) mmol/L Chloride (98-107) mmol/L Carbon Dioxide (22-32) mmol/L BUN (9-20) mg/dL Creatinine (0.66-1.25) mg/dL Estimated GFR (>60) mL/min BUN/Creatinine Ratio (6-22) Glucose (80-110) mg/dL Lactate (0.7-2.1) mmol/L Calcium (8.4-10.2) mg/dL Total Bilirubin (0.2-1.3) mg/dL AST (17-59) IU/L ALT (<50) IU/L Alkaline Phosphatase (38-126) U/L Total Protein (6.3-8.2) g/dL Albumin (3.5-5.0) g/dL Globulin (1.7-4.1) g/dL Albumin/Globulin Ratio (1.0-2.8) Lipase (23-300) U/L Procalcitonin (<0.5) ng/mL Chlamy pneumoniae PCR Not detected (Not Detect) Adenovirus (PCR) Not detected (Not Detect) B. pertussis DNA (PCR) Not detected (Not Detecte) B.parapertussis DNA PCR Not detected (Not Detecte) Coronavirus OC43 (PCR) Not detected (Not Detect) Coronavirus HKU1 (PCR) Not detected (Not Detect) Coronavirus 229E (PCR) Not detected (Not Detect) SARS-CoV-2 (PCR) Not detected (Not Detecte) Coronavirus NL63 (PCR) Not detected (Not Detect) Human Metapneumovir PCR Not detected (Not Detect) Influenza Type A (PCR) Not detected (Not Detect) Influenza Type B (PCR) Not detected (Not Detect) M. pneumoniae (PCR) Not detected (Not Detect) Parainfluenza 1 (PCR) Not detected (Not Detect) Parainfluenza 2 (PCR) Not detected (Not Detect) Parainfluenza 3 (PCR) Not detected (Not Detect) Parainfluenza 4 (PCR) Not detected (Not Detect) RSV (PCR) Not detected (Not Detect) Entero/Rhino (PCR) Not detected (Not Detect) 06/13/22 06/13/22 06/13/22 Range/Units 18:30 18:30 20:36 WBC (4.5-11.0) X10^3/uL RBC (4.5-5.9) X10^6/uL Hgb (13.5-17.5) g/dL Hct (41-53) % MCV (80-100) fL MCH (26-34) PG MCHC (30-36) % RDW (11.6-14.8) % Plt Count (150-400) X10^3/uL Neut % (Auto) (50-75) % Lymph % (Auto) (25-40) % [place] % (Auto) (3-14) % Eos % (Auto) (2-4) % Baso % (Auto) (0-2) % Neut # (Auto) (3492-3041) /uL Lymph # (Auto) (6901-6794) /uL [place] # (Auto) (0-900) /uL Eos # (Auto) (0-450) /uL Baso # (Auto) (0-100) /uL PT (10.1-12.7) SECONDS INR (0.9-1.3) APTT (26-36) SECONDS Sodium 135 L (137-145) mmol/L Potassium 4.4 (3.4-5.1) mmol/L Chloride 105 (98-107) mmol/L Carbon Dioxide 20 L (22-32) mmol/L BUN 27 H (9-20) mg/dL Creatinine 2.20 H (0.66-1.25) mg/dL Estimated GFR 30 L (>60) mL/min BUN/Creatinine Ratio 12.3 (6-22) Glucose 141 H (80-110) mg/dL Lactate 2.8 H 1.5 (0.7-2.1) mmol/L Calcium 8.5 (8.4-10.2) mg/dL Total Bilirubin 1.1 (0.2-1.3) mg/dL AST 42 (17-59) IU/L ALT 35 (<50) IU/L Alkaline Phosphatase 119 (38-126) U/L Total Protein 6.6 (6.3-8.2) g/dL Albumin 3.8 (3.5-5.0) g/dL Globulin 2.8 (1.7-4.1) g/dL Albumin/Globulin Ratio 1.4 (1.0-2.8) Lipase 57 (23-300) U/L Procalcitonin 46.1 H (<0.5) ng/mL Chlamy pneumoniae PCR (Not Detect) Adenovirus (PCR) (Not Detect) B. pertussis DNA (PCR) (Not Detecte) B.parapertussis DNA PCR (Not Detecte) Coronavirus OC43 (PCR) (Not Detect) Coronavirus HKU1 (PCR) (Not Detect) Coronavirus 229E (PCR) (Not Detect) SARS-CoV-2 (PCR) (Not Detecte) Coronavirus NL63 (PCR) (Not Detect) Human Metapneumovir PCR (Not Detect) Influenza Type A (PCR) (Not Detect) Influenza Type B (PCR) (Not Detect) M. pneumoniae (PCR) (Not Detect) Parainfluenza 1 (PCR) (Not Detect) Parainfluenza 2 (PCR) (Not Detect) Parainfluenza 3 (PCR) (Not Detect) Parainfluenza 4 (PCR) (Not Detect) RSV (PCR) (Not Detect) Entero/Rhino (PCR) (Not Detect) Imaging Data Chest x-ray: Radiologist's Impression: PROCEDURE:? XR CHEST 1V ? INDICATIONS:? suspected sepsis ? TECHNIQUE:? One view of the chest was acquired.? ? COMPARISON:? [facility], CR, XR CHEST 1V, 10/31/2021, 16:48. ? FINDINGS:? ? Surgical changes and devices:? None.? ? Lungs and pleura:? Lungs are clear.? No pleural effusions or pneumothorax.? ? Mediastinum:? Mediastinal contours appear normal.? Heart size is mildly enlarged. ? Bones and chest wall:? No suspicious bony lesions.? Overlying soft tissues appear unremarkable.? ? IMPRESSION:? No acute pulmonary process. ECG Data Attestation: I personally reviewed and interpreted this ECG as follows: Interpretation: Sinus rhythm Ventricular rate 93 Frequent PACs normal QRS Right bundle-branch block No ST T changes MDM Narrative Medical decision making narrative: Patient presented with history and physical exam that is concerning for an infection although specific source not identified here in the emergency department. Chest x-ray is unremarkable. Abdomen is unremarkable. Patient has not yet to provide us a urine sample. Cultures were obtained. Lactate was elevated but improved with repeat. Fluids were administered. Given his lack of hypotension and fact that he was not altered and was not clinically dehydrated we will hold on 30 cc/kilogram of fluid. Patient is afebrile. The chills and body aches he is having are somewhat concerning about rigors which was then concerning about bacteremia. Plan to be is to admit to the hospital for further evaluation and treatment. Discussed the need for admission with the patient who expressed understanding and agreement. Discussed the case with Dr. Warren hospitalist on-call who will admit for further treatment. Discharge Plan Departure Patient Disposition: Home Clinical Impression: Fever of unknown origin, Acute kidney injury
[2022-06-13] MEDS: SODIUM CHLORIDE 0.9% 1,000 ML 1000 ML IV ×2 (18:28→19:37)
[2022-06-13 18:45] LABS: Add Manual Diff / Slide Review NO; Basophils Absolute Auto 0 /uL (0-100); Basophils Percent Auto 0.3 % (0-2); Eosinophils Absolute Auto 0 /uL (0-450); Hematocrit 39.3 % (41-53); Hemoglobin 13.3 g/dL (13.5-17.5); Lymphocytes Absolute Auto 200 /uL (1100-4500); Lymphocytes Percent Auto 2.4 % (25-40); Mean Corpuscular HGB Conc 33.8 % (30-36); Mean Corpuscular Hemoglobin 33.6 PG (26-34); Mean Corpuscular Volume 99.3 fL (80-100); Monocytes Absolute Auto 0 /uL (0-900); Monocytes Percent Auto 0.3 % (3-14); Neutrophils Absolute Auto 9600 /uL (1500-7000); Platelet Count 166 X10^3/uL (150-400); Red Blood Cell Count 3.95 X10^6/uL (4.5-5.9); Red Cell Distribution Width 14.3 % (11.6-14.8); White Blood Cell Count 9.9 X10^3/uL (4.5-11.0)
[2022-06-13 18:48] LABS: INR 1.2 (0.9-1.3); Prothrombin Time 13.5 SECONDS (10.1-12.7)
[2022-06-13 18:50] LABS: PTT Partial Thromboplastin Tim 26 SECONDS (26-36)
[2022-06-13 18:53] LABS: Lactate (Lactic Acid) 2.8 mmol/L (0.7-2.1)
[2022-06-13 18:54] LABS: Alanine Aminotransferase 35 IU/L (<50); Albumin 3.8 g/dL (3.5-5.0); Albumin Globulin Ratio 1.4 (1.0-2.8); Alkaline Phosphatase 119 U/L (38-126); Aspartate Aminotransferase 42 IU/L (17-59); BUN Creatinine Ratio 12.3 (6-22); Bilirubin Total 1.1 mg/dL (0.2-1.3); Blood Urea Nitrogen 27 mg/dL (9-20); Calcium 8.5 mg/dL (8.4-10.2); Carbon Dioxide 20 mmol/L (22-32); Chloride 105 mmol/L (98-107); Estimated Glomerular Filt Rate 30 mL/min (>60); Globulin 2.8 g/dL (1.7-4.1); Glucose 141 mg/dL (80-110); HEMOLYSIS < 15 (0-50); Lipase 57 U/L (23-300); Potassium 4.4 mmol/L (3.4-5.1); Sodium 135 mmol/L (137-145); Total Protein 6.6 g/dL (6.3-8.2)
[2022-06-13 19:10] LABS: Procalcitonin 46.1 ng/mL (<0.5)
[2022-06-13] MEDS: cefTRIAXone 1,000 MG in SODIUM CHLORIDE 0.9% 100 ML 200 MG IV (19:26)
[2022-06-13] MEDS: VANCOMYCIN 1,000 MG/200 ML PIGGYBACK 200 MG IV ×2 (19:59→22:21)
[2022-06-13 20:33] LABS: Adenovirus Not Detected (Not Detect); B. parapertussis Not Detected (Not Detecte); Bordetella pertussis Not Detected (Not Detecte); Chlamydophila pneumoniae Not Detected (Not Detect); Coronavirus 229E Not Detected (Not Detect); Coronavirus HKU1 Not Detected (Not Detect); Coronavirus NL 63 Not Detected (Not Detect); Coronavirus OC43 Not Detected (Not Detect); Human Metapneumovirus Not Detected (Not Detect); Human Rhinovirus/Enterovirus Not Detected (Not Detect); Influenza A Not Detected (Not Detect); Influenza B Not Detected (Not Detect); Mycoplasma pneumoniae Not Detected (Not Detect); Parainfluenza Virus 1 Not Detected (Not Detect); Parainfluenza Virus 2 Not Detected (Not Detect); Parainfluenza Virus 3 Not Detected (Not Detect); Parainfluenza Virus 4 Not Detected (Not Detect); Respiratory Syncytial Virus Not Detected (Not Detect); SARS- CoV-2 Not Detected (Not Detecte)
[2022-06-13 20:36] LABS: Reflexed Lactate in 2 Hours Y
[2022-06-13 20:59] LABS: Lactate 2HR (Lactic Acid Rflx) 1.5 mmol/L (0.7-2.1)
[2022-06-13] MEDS: HEPARIN 5,000 UNIT/ML VIAL 5000 UNIT SUBCUT (22:21)
[2022-06-13 23:51] LABS: MRSA (Nasal) PCR Not Detected (Not Detect)
[2022-06-14] VITALS (8 sets, daily range): BP systolic 99–134; BP diastolic 51–78; PULSE 66–82; RESP 15–18; TEMP 36.4–37.2; O2SAT 94–98
--- NOTE | 2022-06-14 00:36 | P.HP_ITS ---
History of Present Illness History of Present Illness Date Patient Seen: 06/13/22 Time Patient Seen: 23:30 Chief complaint: Hot and Cold and shakes, Temp 99.1 Narrative: Mr. Manrique in an 81M with PMH Type 2 DM on insulin, BPH, HTN who presents to the hospital with rigors. He was in his normal state of health. He chronically has neck pain, joint pain, and mild diarrhea. Today he had an episode of feeling chills, he had rigors. His family member checked his temperature and he had a fever. Otherwise he had no other new symptoms. No headache. No rhinorrhea. No co ugh, or shortness of breath. No nausea, vomiting, or abdominal pain. No dysuria. No confusion. In the ED workup was done, vitals notable for afebrile, heart rate in 120s, respiratory rate 20s, blood pressure 170s/100s, sats 97% on room air. Labs reviewed and notable for WBC 9.9, hgb 13.3, plts 166. Na 135, BUN 27, creatinine 2.20. COVID negative. Respiratory PCR panel negative. Lactate 2.8, repeat 1.5. Procal 46.1. Chest xray reviewed by me and showed no consolidation. He was given Iv fluids and antibiotics and admitted for further treatment. [facility] Medical History Arthritis Essential hypertension History of COVID-19 History of kidney stones Hyperlipidemia associated with type 2 diabetes mellitus Insulin dependent diabetes mellitus Surgical History History of tonsillectomy Family History Mother Dementia Father Heart attack Social History household members: significant other Smoking Status: Never smoker alcohol intake: current Meds Home Medications and Allergies Home Medications Medication Instructions Recorded Confirmed Type allopurinol 100 mg tablet 100 mg PO BEDTIME 10/31/21 06/13/22 History atorvastatin 10 mg tablet 10 mg PO BEDTIME 10/31/21 06/13/22 History bupropion HCl 150 mg tablet,12 hr 150 mg PO BEDTIME 10/31/21 06/13/22 History sustained-release finasteride 5 mg tablet 5 mg PO BEDTIME 10/31/21 06/13/22 History insulin glargine 100 unit/mL (3 28 unit SUBCUT QPM 10/31/21 06/13/22 History mL) subcutaneous pen (Lantus Solostar U-100 Insulin) lisinopril 10 mg tablet 10 mg PO BEDTIME 10/31/21 06/13/22 History doxazosin 8 mg tablet 8 mg PO DAILY 06/13/22 06/13/22 History dulaglutide 1.5 mg/0.5 mL 1.5 mg SUBCUT WEEKLY 06/13/22 06/13/22 History subcutaneous pen injector (Trulicity) metformin 500 mg tablet,extended 500 mg PO BEDTIME 06/13/22 06/13/22 History release 24 hr sodium bicarbonate 650 mg tablet 650 mg BID 06/13/22 06/13/22 History Allergies Allergy/AdvReac Type Severity Reaction Status Date / Time No Known Drug Allergies Allergy Verified 06/13/22 18:07 Review of Systems Review of Systems Narrative: 14 systems reviewed and negative aside from what is noted in HPI Exam Vital Signs (past 8 hours): - 06/13/22 18:02 06/13/22 18:24 06/13/22 18:24 Temperature 98.1 F 98.8 F Pulse Rate 124 H 130 H Respiratory Rate 22 20 Blood Pressure 176/109 H Pulse Oximetry 97 94 Oxygen Delivery Method Room Air Oxygen Flow Rate 06/13/22 18:30 06/13/22 18:30 06/13/22 19:00 Temperature Pulse Rate 124 H 97 H Respiratory Rate 19 18 Blood Pressure 119/60 Pulse Oximetry 94 93 Oxygen Delivery Method Room Air Oxygen Flow Rate 06/13/22 19:37 06/13/22 19:30 06/13/22 19:30 Temperature 99.3 F Pulse Rate 91 H Respiratory Rate 16 Blood Pressure 114/55 L Pulse Oximetry 93 Oxygen Delivery Method Oxygen Flow Rate 06/13/22 20:00 06/13/22 20:00 06/13/22 20:30 Temperature Pulse Rate 86 Respiratory Rate 15 Blood Pressure 112/58 L 112/65 Pulse Oximetry 96 Oxygen Delivery Method Oxygen Flow Rate 06/13/22 20:30 06/13/22 21:00 06/13/22 21:00 Temperature Pulse Rate 90 91 H Respiratory Rate 26 H 22 Blood Pressure 107/58 L Pulse Oximetry 88 L 96 Oxygen Delivery Method Oxygen Flow Rate 06/13/22 21:20 06/13/22 21:29 06/13/22 20:57 Temperature 98.4 F Pulse Rate 80 Respiratory Rate 18 Blood Pressure 104/61 Pulse Oximetry 95 95 Oxygen Delivery Method Room Air Room Air Oxygen Flow Rate 0 06/14/22 00:36 Temperature 98.9 F Pulse Rate 82 Respiratory Rate 18 Blood Pressure 99/58 L Pulse Oximetry 96 Oxygen Delivery Method Oxygen Flow Rate 0 Oxygen Delivery Method Room Air Oxygen Flow Rate 0 Narrative Exam Narrative: GEN: no acute distress HEENT: moist mucous membranes, PERRL NECK: trachea midline, no JVD PULM: clear bilaterally, no wheezes, rhonchi, rales CV: regular rate and rhythm, no murmurs ABD: soft, nontender, nondistended, no organomegaly EXT: warm and well perfused with no edema NEURO: awake, alert, oriented, no focal deficits Objective Labs 06/14/22 06:05 06/14/22 06:05 Labs: Laboratory Results - last 24 hr 06/13/22 06/13/22 06/13/22 18:09 18:30 18:30 WBC 9.9 RBC 3.95 L Hgb 13.3 L Hct 39.3 L MCV 99.3 MCH 33.6 MCHC 33.8 RDW 14.3 Plt Count 166 Neut % (Auto) 97.0 H Lymph % (Auto) 2.4 L [place] % (Auto) 0.3 L Eos % (Auto) 0.0 L Baso % (Auto) 0.3 Neut # (Auto) 9600 H Lymph # (Auto) 200 L [place] # (Auto) 0 Eos # (Auto) 0 Baso # (Auto) 0 PT 13.5 H INR 1.2 APTT 26 Sodium Potassium Chloride Carbon Dioxide BUN Creatinine Estimated GFR BUN/Creatinine Ratio Glucose Lactate Calcium Total Bilirubin AST ALT Alkaline Phosphatase Total Protein Albumin Globulin Albumin/Globulin Ratio Lipase Procalcitonin Nasal Screen MRSA (PCR) Chlamy pneumoniae PCR Not detected Adenovirus (PCR) Not detected B. pertussis DNA (PCR) Not detected B.parapertussis DNA PCR Not detected Coronavirus OC43 (PCR) Not detected Coronavirus HKU1 (PCR) Not detected Coronavirus 229E (PCR) Not detected SARS-CoV-2 (PCR) Not detected Coronavirus NL63 (PCR) Not detected Human Metapneumovir PCR Not detected Influenza Type A (PCR) Not detected Influenza Type B (PCR) Not detected M. pneumoniae (PCR) Not detected Parainfluenza 1 (PCR) Not detected Parainfluenza 2 (PCR) Not detected Parainfluenza 3 (PCR) Not detected Parainfluenza 4 (PCR) Not detected RSV (PCR) Not detected Entero/Rhino (PCR) Not detected 06/13/22 06/13/22 06/13/22 18:30 18:30 20:36 WBC RBC Hgb Hct MCV MCH MCHC RDW Plt Count Neut % (Auto) Lymph % (Auto) [place] % (Auto) Eos % (Auto) Baso % (Auto) Neut # (Auto) Lymph # (Auto) [place] # (Auto) Eos # (Auto) Baso # (Auto) PT INR APTT Sodium 135 L Potassium 4.4 Chloride 105 Carbon Dioxide 20 L BUN 27 H Creatinine 2.20 H Estimated GFR 30 L BUN/Creatinine Ratio 12.3 Glucose 141 H Lactate 2.8 H 1.5 Calcium 8.5 Total Bilirubin 1.1 AST 42 ALT 35 Alkaline Phosphatase 119 Total Protein 6.6 Albumin 3.8 Globulin 2.8 Albumin/Globulin Ratio 1.4 Lipase 57 Procalcitonin 46.1 H Nasal Screen MRSA (PCR) Chlamy pneumoniae PCR Adenovirus (PCR) B. pertussis DNA (PCR) B.parapertussis DNA PCR Coronavirus OC43 (PCR) Coronavirus HKU1 (PCR) Coronavirus 229E (PCR) SARS-CoV-2 (PCR) Coronavirus NL63 (PCR) Human Metapneumovir PCR Influenza Type A (PCR) Influenza Type B (PCR) M. pneumoniae (PCR) Parainfluenza 1 (PCR) Parainfluenza 2 (PCR) Parainfluenza 3 (PCR) Parainfluenza 4 (PCR) RSV (PCR) Entero/Rhino (PCR) 06/13/22 22:20 WBC RBC Hgb Hct MCV MCH MCHC RDW Plt Count Neut % (Auto) Lymph % (Auto) [place] % (Auto) Eos % (Auto) Baso % (Auto) Neut # (Auto) Lymph # (Auto) [place] # (Auto) Eos # (Auto) Baso # (Auto) PT INR APTT Sodium Potassium Chloride Carbon Dioxide BUN Creatinine Estimated GFR BUN/Creatinine Ratio Glucose Lactate Calcium Total Bilirubin AST ALT Alkaline Phosphatase Total Protein Albumin Globulin Albumin/Globulin Ratio Lipase Procalcitonin Nasal Screen MRSA (PCR) Not detected Chlamy pneumoniae PCR Adenovirus (PCR) B. pertussis DNA (PCR) B.parapertussis DNA PCR Coronavirus OC43 (PCR) Coronavirus HKU1 (PCR) Coronavirus 229E (PCR) SARS-CoV-2 (PCR) Coronavirus NL63 (PCR) Human Metapneumovir PCR Influenza Type A (PCR) Influenza Type B (PCR) M. pneumoniae (PCR) Parainfluenza 1 (PCR) Parainfluenza 2 (PCR) Parainfluenza 3 (PCR) Parainfluenza 4 (PCR) RSV (PCR) Entero/Rhino (PCR) Assessment & Plan Assessment & Plan narrative: 1. Sepsis -presents with tachycardia, tachypnea, elevated lactate, and organ dysfunction with KELLY -source is not clear -urine uncollected on admission, due to inability from patient -did receive IV antibiotics in the ED -chest xray reviewed by me and no clear source of infection with no consolidation noted -follow up blood cultures -urinalysis and urine culture pending -continue vancomycin, ceftriaxone for now 2. KELLY on CKD stage 3 -creatinine on admission 2.2, baseline near 1.7 -suspect secondary to hypovolemia from sepsis -did get fluids in ED -recheck creatinine in AM 3. Hypertension -hold anti-hypertensives 4. Type 2 Diabetes on insulin 5. Depression -continue bupropion 6. BPH -continue finasteride Quality VTE Deep Vein Thrombosis/Pulmonary Embolism Present on Admission: No
[2022-06-14 01:18] LABS: Appearance Urine UA CLEAR; Bilirubin Urine UA NEGATIVE (NEGATIVE); Color Urine UA YELLOW; Glucose Urine UA NEGATIVE (Negative); Ketones Urine UA NEGATIVE (NEGATIVE); Leukocyte Esterase Urine UA NEGATIVE (NEGATIVE); Nitrite Urine UA NEGATIVE (Negative); Occult Blood Urine UA 1+ (Negative); Protein Urine UA 2+ (Negative); Specific Gravity Urine UA 1.015 (1.000-1.035); pH Urine UA 6.5 (4.5-8.0)
[2022-06-14 01:33] LABS: Bacteria Urine Moderate (10-30); Culture Indicated Urine Specimen Cultured; RBC Urine 1-5/HPF (0-5/HPF); Squamous Epithelial Cell Urine 1-5 /HPF (0-5/HPF); WBC Urine 1-5/HPF (0-5/HPF)
[2022-06-14 06:14] LABS: Add Manual Diff / Slide Review NO; Basophils Absolute Auto 100 /uL (0-100); Basophils Percent Auto 0.4 % (0-2); Eosinophils Absolute Auto 0 /uL (0-450); Eosinophils Percent Auto 0.2 % (2-4); Hematocrit 35.6 % (41-53); Hemoglobin 11.9 g/dL (13.5-17.5); Lymphocytes Absolute Auto 1400 /uL (1100-4500); Lymphocytes Percent Auto 6.7 % (25-40); Mean Corpuscular HGB Conc 33.3 % (30-36); Mean Corpuscular Hemoglobin 33.1 PG (26-34); Mean Corpuscular Volume 99.4 fL (80-100); Monocytes Absolute Auto 1200 /uL (0-900); Monocytes Percent Auto 5.6 % (3-14); Neutrophils Absolute Auto 18400 /uL (1500-7000); Neutrophils Percent Auto 87.1 % (50-75); Platelet Count 148 X10^3/uL (150-400); Red Blood Cell Count 3.58 X10^6/uL (4.5-5.9); Red Cell Distribution Width 14.3 % (11.6-14.8); White Blood Cell Count 21.2 X10^3/uL (4.5-11.0)
[2022-06-14 06:26] LABS: Alanine Aminotransferase 27 IU/L (<50); Albumin Globulin Ratio 1.2 (1.0-2.8); Alkaline Phosphatase 71 U/L (38-126); Aspartate Aminotransferase 28 IU/L (17-59); BUN Creatinine Ratio 13.2 (6-22); Bilirubin Total 0.4 mg/dL (0.2-1.3); Blood Urea Nitrogen 27 mg/dL (9-20); Calcium 7.7 mg/dL (8.4-10.2); Carbon Dioxide 20 mmol/L (22-32); Chloride 109 mmol/L (98-107); Estimated Glomerular Filt Rate 32 mL/min (>60); Globulin 2.5 g/dL (1.7-4.1); Glucose 121 mg/dL (80-110); HEMOLYSIS < 15 (0-50); Potassium 4.2 mmol/L (3.4-5.1); Sodium 137 mmol/L (137-145); Total Protein 5.5 g/dL (6.3-8.2)
--- NOTE | 2022-06-14 07:36 | DI.CT.S_ITS ---
PROCEDURE: CT CHEST ABD PEL WO CON INDICATIONS: fevers, source unknown TECHNIQUE: After the administration of oral contrast, 5 mm thick sections acquired from the lung apices to the symphysis pubis. 5 mm thick coronal and sagittal reformats acquired, with additional 7 mm coronal MIP reformats through the lungs. For radiation dose reduction, the following was used: automated exposure control, adjustment of mA and/or kV according to patient size. COMPARISON: None. FINDINGS: Image quality: Excellent. CHEST: Lungs and pleura: No acute pulmonary opacities. 8 mm right middle lobe nodule abutting the pleura, image 248/5. 6 mm pleural based pulmonary nodule, right middle lobe, image 253/5. 2 mm pulmonary nodule, extreme right lung base, image 274/5. Minimal bibasilar atelectasis. No pleural effusions or pneumothorax. Central and peripheral airways are patent are normal in caliber. Mediastinum: Heart size is normal. No pericardial effusion. Severe coronary artery calcifications. No mediastinal adenopathy by CT size criteria. Thoracic aorta and central pulmonary arteries are normal in size. Esophagus is normal in caliber. No hiatal hernia. Chest wall: No axillary or supraclavicular adenopathy by size criteria. Thyroid gland is unremarkable . ABDOMEN: Solid organs: Liver is normal in size. Gallbladder is unremarkable without calcified gallstones . Pancreas is normal in contours. Spleen is normal in size. No adrenal nodules. Both kidneys are normal in size, without hydronephrosis or nephrolithiasis. Peritoneum and bowel: Small and large bowel loops are normal in caliber and wall thickness. Mobile cecum. No free fluid or air. Nodes and vessels: No retroperitoneal or mesenteric adenopathy by size criteria. Aorta and inferior vena cava are normal in size. Miscellaneous: No ventral hernias. PELVIS: Genitourinary: Bladder wall thickness is normal. There is a bladder diverticulum off of the dome of the bladder. Mild enlargement of the prostate. Miscellaneous: No inguinal hernias or adenopathy. Bones: No suspicious bony lesions. No vertebral body compression fractures. IMPRESSION: 1. No evidence of acute process in the chest, abdomen, and pelvis. 2. Severe coronary artery calcifications. 3. There are 3 pulmonary nodules in the right lung, the largest of which measures 8 mm. Please refer to the chart below for follow-up recommendations. Fleischner Society criteria for SOLID lung nodule followup. Nodule size (mm)Low-risk patientHigh-risk patient<6 (single or multiple)No routine followup.Optional CT at 12 months. 6-8 (single or multiple)CT at 6-12 months, then optional CT at 18-24 mo.CT at 6-12 months, then CT at 18-24 months. >8 (single)CT at 3 months, PET-CT, or biopsy. Same as for low-risk pts. >8 (multiple)CT at 3-6 months, then optional CT at 18-24 mo.CT at 3-6 months, then CT at 18-24 months. Fleischner Society criteria for SUB-SOLID lung nodule followup. Solitary pure ground-glass nodules<6 mm (ground glass or part solid)No followup needed. 6 mm or larger (ground glass)CT at 6-12 months to confirm persistence, then CT every 2 years until 5 years.6 mm or larger (part solid)CT at 3-6 months to confirm persistence, then annual CT until 5 years if unchanged and solid component remains <6 mm. Multiple sub-solid nodules<6 mmCT at 3-6 months, then CT consider at 2 & 4 years for high risk patients. [address] at 3-6 months. Subsequent management based on most suspicious lesions. Recommendations do not apply to lung cancer screening, patients with immunosuppression, or patients with known primary cancer. Dictated by: Lauri Karimi M.D. on 06/14/2022 at 8:02 Approved by: Lauri Karimi M.D. on 06/14/2022 at 8:09
--- NOTE | 2022-06-14 07:46 | P.PN_ITS ---
Exam Vital Signs (past 8 hours): - 06/14/22 01:13 06/14/22 00:36 06/14/22 01:06 Temperature 98.9 F Pulse Rate 82 74 Respiratory Rate 18 15 Blood Pressure 99/58 L 102/51 L Pulse Oximetry 96 96 96 Oxygen Delivery Method Room Air Oxygen Flow Rate 0 06/14/22 04:33 06/14/22 05:00 Temperature 97.5 F L Pulse Rate 66 Respiratory Rate 18 Blood Pressure 104/61 Pulse Oximetry 98 98 Oxygen Delivery Method Room Air Oxygen Flow Rate 0 Oxygen Delivery Method Room Air Oxygen Flow Rate 0 Narrative Exam Narrative: GEN: no acute distress HEENT: moist mucous membranes, PERRL NECK: trachea midline, no JVD PULM: clear bilaterally, no wheezes, rhonchi, rales CV: regular rate and rhythm, no murmurs ABD: soft, nontender, nondistended, no organomegaly EXT: warm and well perfused with no edema NEURO: awake, alert, oriented, no focal deficits Objective Labs 06/14/22 06:05 06/14/22 06:05 Labs: Laboratory Results - last 24 hr 06/13/22 06/13/22 06/13/22 18:09 18:30 18:30 WBC 9.9 RBC 3.95 L Hgb 13.3 L Hct 39.3 L MCV 99.3 MCH 33.6 MCHC 33.8 RDW 14.3 Plt Count 166 Neut % (Auto) 97.0 H Lymph % (Auto) 2.4 L [place] % (Auto) 0.3 L Eos % (Auto) 0.0 L Baso % (Auto) 0.3 Neut # (Auto) 9600 H Lymph # (Auto) 200 L [place] # (Auto) 0 Eos # (Auto) 0 Baso # (Auto) 0 PT 13.5 H INR 1.2 APTT 26 Sodium Potassium Chloride Carbon Dioxide BUN Creatinine Estimated GFR BUN/Creatinine Ratio Glucose Lactate Calcium Total Bilirubin AST ALT Alkaline Phosphatase Total Protein Albumin Globulin Albumin/Globulin Ratio Lipase Procalcitonin Urine Color Urine Appearance Urine pH Ur Specific [place] Urine Protein Urine Glucose (UA) Urine Ketones Urine Occult Blood Urine Nitrate Urine Bilirubin Urine Urobilinogen Ur Leukocyte Esterase Urine RBC Urine WBC Ur Squamous Epith Cells Urine Bacteria Ur Culture Indicated? Nasal Screen MRSA (PCR) Chlamy pneumoniae PCR Not detected Adenovirus (PCR) Not detected B. pertussis DNA (PCR) Not detected B.parapertussis DNA PCR Not detected Coronavirus OC43 (PCR) Not detected Coronavirus HKU1 (PCR) Not detected Coronavirus 229E (PCR) Not detected SARS-CoV-2 (PCR) Not detected Coronavirus NL63 (PCR) Not detected Human Metapneumovir PCR Not detected Influenza Type A (PCR) Not detected Influenza Type B (PCR) Not detected M. pneumoniae (PCR) Not detected Parainfluenza 1 (PCR) Not detected Parainfluenza 2 (PCR) Not detected Parainfluenza 3 (PCR) Not detected Parainfluenza 4 (PCR) Not detected RSV (PCR) Not detected Entero/Rhino (PCR) Not detected 06/13/22 06/13/22 06/13/22 18:30 18:30 20:36 WBC RBC Hgb Hct MCV MCH MCHC RDW Plt Count Neut % (Auto) Lymph % (Auto) [place] % (Auto) Eos % (Auto) Baso % (Auto) Neut # (Auto) Lymph # (Auto) [place] # (Auto) Eos # (Auto) Baso # (Auto) PT INR APTT Sodium 135 L Potassium 4.4 Chloride 105 Carbon Dioxide 20 L BUN 27 H Creatinine 2.20 H Estimated GFR 30 L BUN/Creatinine Ratio 12.3 Glucose 141 H Lactate 2.8 H 1.5 Calcium 8.5 Total Bilirubin 1.1 AST 42 ALT 35 Alkaline Phosphatase 119 Total Protein 6.6 Albumin 3.8 Globulin 2.8 Albumin/Globulin Ratio 1.4 Lipase 57 Procalcitonin 46.1 H Urine Color Urine Appearance Urine pH Ur Specific [place] Urine Protein Urine Glucose (UA) Urine Ketones Urine Occult Blood Urine Nitrate Urine Bilirubin Urine Urobilinogen Ur Leukocyte Esterase Urine RBC Urine WBC Ur Squamous Epith Cells Urine Bacteria Ur Culture Indicated? Nasal Screen MRSA (PCR) Chlamy pneumoniae PCR Adenovirus (PCR) B. pertussis DNA (PCR) B.parapertussis DNA PCR Coronavirus OC43 (PCR) Coronavirus HKU1 (PCR) Coronavirus 229E (PCR) SARS-CoV-2 (PCR) Coronavirus NL63 (PCR) Human Metapneumovir PCR Influenza Type A (PCR) Influenza Type B (PCR) M. pneumoniae (PCR) Parainfluenza 1 (PCR) Parainfluenza 2 (PCR) Parainfluenza 3 (PCR) Parainfluenza 4 (PCR) RSV (PCR) Entero/Rhino (PCR) 06/13/22 06/14/22 06/14/22 22:20 01:10 06:05 WBC 21.2 H D RBC 3.58 L Hgb 11.9 L Hct 35.6 L MCV 99.4 MCH 33.1 MCHC 33.3 RDW 14.3 Plt Count 148 L Neut % (Auto) 87.1 H Lymph % (Auto) 6.7 L [place] % (Auto) 5.6 Eos % (Auto) 0.2 L Baso % (Auto) 0.4 Neut # (Auto) 41666 H Lymph # (Auto) 1400 [place] # (Auto) 1200 H Eos # (Auto) 0 Baso # (Auto) 100 PT INR APTT Sodium Potassium Chloride Carbon Dioxide BUN Creatinine Estimated GFR BUN/Creatinine Ratio Glucose Lactate Calcium Total Bilirubin AST ALT Alkaline Phosphatase Total Protein Albumin Globulin Albumin/Globulin Ratio Lipase Procalcitonin Urine Color Yellow Urine Appearance Clear Urine pH 6.5 Ur Specific [place] 1.015 Urine Protein 2+ H Urine Glucose (UA) Negative Urine Ketones Negative Urine Occult Blood 1+ H Urine Nitrate Negative Urine Bilirubin Negative Urine Urobilinogen 1.0 Ur Leukocyte Esterase Negative Urine RBC 1-5/hpf Urine WBC 1-5/hpf Ur Squamous Epith Cells 1-5 /hpf Urine Bacteria Moderate (10-30) H Ur Culture Indicated? Specimen cultured Nasal Screen MRSA (PCR) Not detected Chlamy pneumoniae PCR Adenovirus (PCR) B. pertussis DNA (PCR) B.parapertussis DNA PCR Coronavirus OC43 (PCR) Coronavirus HKU1 (PCR) Coronavirus 229E (PCR) SARS-CoV-2 (PCR) Coronavirus NL63 (PCR) Human Metapneumovir PCR Influenza Type A (PCR) Influenza Type B (PCR) M. pneumoniae (PCR) Parainfluenza 1 (PCR) Parainfluenza 2 (PCR) Parainfluenza 3 (PCR) Parainfluenza 4 (PCR) RSV (PCR) Entero/Rhino (PCR) 06/14/22 06:05 WBC RBC Hgb Hct MCV MCH MCHC RDW Plt Count Neut % (Auto) Lymph % (Auto) [place] % (Auto) Eos % (Auto) Baso % (Auto) Neut # (Auto) Lymph # (Auto) [place] # (Auto) Eos # (Auto) Baso # (Auto) PT INR APTT Sodium 137 Potassium 4.2 Chloride 109 H Carbon Dioxide 20 L BUN 27 H Creatinine 2.05 H Estimated GFR 32 L BUN/Creatinine Ratio 13.2 Glucose 121 H Lactate Calcium 7.7 L Total Bilirubin 0.4 AST 28 ALT 27 Alkaline Phosphatase 71 Total Protein 5.5 L Albumin 3.0 L Globulin 2.5 Albumin/Globulin Ratio 1.2 Lipase Procalcitonin Urine Color Urine Appearance Urine pH Ur Specific [place] Urine Protein Urine Glucose (UA) Urine Ketones Urine Occult Blood Urine Nitrate Urine Bilirubin Urine Urobilinogen Ur Leukocyte Esterase Urine RBC Urine WBC Ur Squamous Epith Cells Urine Bacteria Ur Culture Indicated? Nasal Screen MRSA (PCR) Chlamy pneumoniae PCR Adenovirus (PCR) B. pertussis DNA (PCR) B.parapertussis DNA PCR Coronavirus OC43 (PCR) Coronavirus HKU1 (PCR) Coronavirus 229E (PCR) SARS-CoV-2 (PCR) Coronavirus NL63 (PCR) Human Metapneumovir PCR Influenza Type A (PCR) Influenza Type B (PCR) M. pneumoniae (PCR) Parainfluenza 1 (PCR) Parainfluenza 2 (PCR) Parainfluenza 3 (PCR) Parainfluenza 4 (PCR) RSV (PCR) Entero/Rhino (PCR) [facility] Medical History Arthritis Essential hypertension History of COVID-19 History of kidney stones Hyperlipidemia associated with type 2 diabetes mellitus Insulin dependent diabetes mellitus Surgical History History of tonsillectomy Family History Mother Dementia Father Heart attack Social History household members: significant other Smoking Status: Never smoker alcohol intake: current Assessment & Plan Assessment & Plan narrative: 1. Sepsis -presents with tachycardia, tachypnea, elevated lactate, and organ dysfunction with KELLY -source is not clear -urine uncollected on admission, due to inability from patient -did receive IV antibiotics in the ED -chest xray reviewed by me and no clear source of infection with no consolidation noted -follow up blood cultures -urinalysis and urine culture pending -continue vancomycin, ceftriaxone for now 2. KELLY on CKD stage 3 -creatinine on admission 2.2, baseline near 1.7 -suspect secondary to hypovolemia from sepsis -did get fluids in ED -recheck creatinine in AM 3. Hypertension -hold anti-hypertensives 4. Type 2 Diabetes on insulin 5. Depression -continue bupropion 6. BPH -continue finasteride Quality VTE Deep Vein Thrombosis/Pulmonary Embolism Present on Admission: No
[2022-06-14] MEDS: HEPARIN 5,000 UNIT/ML VIAL 5000 UNIT SUBCUT (09:40)
[2022-06-14 10:56] LABS: Add Manual Diff / Slide Review NO; Basophils Absolute Auto 100 /uL (0-100); Basophils Percent Auto 0.3 % (0-2); Eosinophils Absolute Auto 100 /uL (0-450); Eosinophils Percent Auto 0.7 % (2-4); Hemoglobin 11.8 g/dL (13.5-17.5); Lymphocytes Absolute Auto 1300 /uL (1100-4500); Lymphocytes Percent Auto 7.4 % (25-40); Mean Corpuscular HGB Conc 33.6 % (30-36); Mean Corpuscular Hemoglobin 33.5 PG (26-34); Mean Corpuscular Volume 99.8 fL (80-100); Monocytes Absolute Auto 800 /uL (0-900); Monocytes Percent Auto 4.6 % (3-14); Neutrophils Absolute Auto 15200 /uL (1500-7000); Platelet Count 142 X10^3/uL (150-400); Red Cell Distribution Width 14.5 % (11.6-14.8); White Blood Cell Count 17.5 X10^3/uL (4.5-11.0)
--- NOTE | 2022-06-14 12:31 | P.DS_ITS ---
History of Present Illness History of Present Illness Date Patient Seen: 06/13/22 Time Patient Seen: 23:30 Chief complaint: Hot and Cold and shakes, Temp 99.1 Narrative: Mr. Manrique in an 81M with PMH Type 2 DM on insulin, BPH, HTN who presents to the hospital with rigors. He was in his normal state of health. He chronically has neck pain, joint pain, and mild diarrhea. Today he had an episode of feeling chills, he had rigors. His family member checked his temperature and he had a fever. Otherwise he had no other new symptoms. No headache. No rhinorrhea. No co ugh, or shortness of breath. No nausea, vomiting, or abdominal pain. No dysuria. No confusion. In the ED workup was done, vitals notable for afebrile, heart rate in 120s, respiratory rate 20s, blood pressure 170s/100s, sats 97% on room air. Labs reviewed and notable for WBC 9.9, hgb 13.3, plts 166. Na 135, BUN 27, creatinine 2.20. COVID negative. Respiratory PCR panel negative. Lactate 2.8, repeat 1.5. Procal 46.1. Chest xray reviewed by me and showed no consolidation. He was given Iv fluids and antibiotics and admitted for further treatment. Discharge Providers Provider Date of admission: 06/13/22 20:40 Discharge Date: 06/14/22 Discharge provider: Mark Mitchell DO Summary Hospital Course Discharge Diagnosis: 1. Enterococcus bacteremia -presents with subjective fevers and rigors -afebrile during admission -received rocephin and vanc -blood culture positive in 1/4 for enterococcus -urine culture positive for group B strep -given no internal hardware, prosthetic heart valve and bacteremia only 1/4 bottles, patient discharged on 10 days of po linezolid to cover enterococcus and GBS -spoke with ID who agreed po linezolid 2. KELLY on CKD stage 3 -creatinine on admission 2.2, baseline near 1.7 -suspect secondary to hypovolemia from sepsis -did get fluids in ED -Cr downtrending after fluids 3. Hypertension -hold anti-hypertensives 4. Type 2 Diabetes on insulin 5. Depression -continue bupropion 6. BPH -continue finasteride Hospital Course: Admitted for fevers and rigors. Blood cultures grew enteroccocus in 1/4 bottles. Recieved doses of IV vanc and rocephin. Urine culture grew GBS. Discharged on 10 days of po linezolid to cover both. Patient fevers and rigors resolved while admitted. Time Spent with Patient Time spent: Greater than 30 minutes Exam Vital Signs (past 8 hours): - 06/14/22 04:33 06/14/22 05:00 06/14/22 08:00 Temperature 97.5 F L 97.7 F Pulse Rate 66 75 Respiratory Rate 18 17 Blood Pressure 104/61 134/78 Pulse Oximetry 98 98 94 Oxygen Delivery Method Room Air Oxygen Flow Rate 0 0 06/14/22 08:00 06/14/22 11:56 Temperature Pulse Rate Respiratory Rate Blood Pressure Pulse Oximetry 94 97 Oxygen Delivery Method Room Air Room Air Oxygen Flow Rate 0 0 Oxygen Delivery Method Room Air Oxygen Flow Rate 0 Narrative Exam Narrative: GEN: no acute distress HEENT: moist mucous membranes, PERRL NECK: trachea midline, no JVD PULM: clear bilaterally, no wheezes, rhonchi, rales CV: regular rate and rhythm, no murmurs ABD: soft, nontender, nondistended, no organomegaly EXT: warm and well perfused with no edema NEURO: awake, alert, oriented, no focal deficits Objective Labs 06/14/22 10:30 06/14/22 06:05 Labs: Laboratory Results - last 24 hr 06/13/22 06/13/22 06/13/22 18:09 18:30 18:30 WBC 9.9 RBC 3.95 L Hgb 13.3 L Hct 39.3 L MCV 99.3 MCH 33.6 MCHC 33.8 RDW 14.3 Plt Count 166 Neut % (Auto) 97.0 H Lymph % (Auto) 2.4 L [place] % (Auto) 0.3 L Eos % (Auto) 0.0 L Baso % (Auto) 0.3 Neut # (Auto) 9600 H Lymph # (Auto) 200 L [place] # (Auto) 0 Eos # (Auto) 0 Baso # (Auto) 0 PT 13.5 H INR 1.2 APTT 26 Sodium Potassium Chloride Carbon Dioxide BUN Creatinine Estimated GFR BUN/Creatinine Ratio Glucose Lactate Calcium Total Bilirubin AST ALT Alkaline Phosphatase Total Protein Albumin Globulin Albumin/Globulin Ratio Lipase Procalcitonin Urine Color Urine Appearance Urine pH Ur Specific [place] Urine Protein Urine Glucose (UA) Urine Ketones Urine Occult Blood Urine Nitrate Urine Bilirubin Urine Urobilinogen Ur Leukocyte Esterase Urine RBC Urine WBC Ur Squamous Epith Cells Urine Bacteria Ur Culture Indicated? Nasal Screen MRSA (PCR) Chlamy pneumoniae PCR Not detected Adenovirus (PCR) Not detected B. pertussis DNA (PCR) Not detected B.parapertussis DNA PCR Not detected Coronavirus OC43 (PCR) Not detected Coronavirus HKU1 (PCR) Not detected Coronavirus 229E (PCR) Not detected SARS-CoV-2 (PCR) Not detected Coronavirus NL63 (PCR) Not detected Human Metapneumovir PCR Not detected Influenza Type A (PCR) Not detected Influenza Type B (PCR) Not detected M. pneumoniae (PCR) Not detected Parainfluenza 1 (PCR) Not detected Parainfluenza 2 (PCR) Not detected Parainfluenza 3 (PCR) Not detected Parainfluenza 4 (PCR) Not detected RSV (PCR) Not detected Entero/Rhino (PCR) Not detected 06/13/22 06/13/22 06/13/22 18:30 18:30 20:36 WBC RBC Hgb Hct MCV MCH MCHC RDW Plt Count Neut % (Auto) Lymph % (Auto) [place] % (Auto) Eos % (Auto) Baso % (Auto) Neut # (Auto) Lymph # (Auto) [place] # (Auto) Eos # (Auto) Baso # (Auto) PT INR APTT Sodium 135 L Potassium 4.4 Chloride 105 Carbon Dioxide 20 L BUN 27 H Creatinine 2.20 H Estimated GFR 30 L BUN/Creatinine Ratio 12.3 Glucose 141 H Lactate 2.8 H 1.5 Calcium 8.5 Total Bilirubin 1.1 AST 42 ALT 35 Alkaline Phosphatase 119 Total Protein 6.6 Albumin 3.8 Globulin 2.8 Albumin/Globulin Ratio 1.4 Lipase 57 Procalcitonin 46.1 H Urine Color Urine Appearance Urine pH Ur Specific [place] Urine Protein Urine Glucose (UA) Urine Ketones Urine Occult Blood Urine Nitrate Urine Bilirubin Urine Urobilinogen Ur Leukocyte Esterase Urine RBC Urine WBC Ur Squamous Epith Cells Urine Bacteria Ur Culture Indicated? Nasal Screen MRSA (PCR) Chlamy pneumoniae PCR Adenovirus (PCR) B. pertussis DNA (PCR) B.parapertussis DNA PCR Coronavirus OC43 (PCR) Coronavirus HKU1 (PCR) Coronavirus 229E (PCR) SARS-CoV-2 (PCR) Coronavirus NL63 (PCR) Human Metapneumovir PCR Influenza Type A (PCR) Influenza Type B (PCR) M. pneumoniae (PCR) Parainfluenza 1 (PCR) Parainfluenza 2 (PCR) Parainfluenza 3 (PCR) Parainfluenza 4 (PCR) RSV (PCR) Entero/Rhino (PCR) 06/13/22 06/14/22 06/14/22 22:20 01:10 06:05 WBC 21.2 H D RBC 3.58 L Hgb 11.9 L Hct 35.6 L MCV 99.4 MCH 33.1 MCHC 33.3 RDW 14.3 Plt Count 148 L Neut % (Auto) 87.1 H Lymph % (Auto) 6.7 L [place] % (Auto) 5.6 Eos % (Auto) 0.2 L Baso % (Auto) 0.4 Neut # (Auto) 05965 H Lymph # (Auto) 1400 [place] # (Auto) 1200 H Eos # (Auto) 0 Baso # (Auto) 100 PT INR APTT Sodium Potassium Chloride Carbon Dioxide BUN Creatinine Estimated GFR BUN/Creatinine Ratio Glucose Lactate Calcium Total Bilirubin AST ALT Alkaline Phosphatase Total Protein Albumin Globulin Albumin/Globulin Ratio Lipase Procalcitonin Urine Color Yellow Urine Appearance Clear Urine pH 6.5 Ur Specific [place] 1.015 Urine Protein 2+ H Urine Glucose (UA) Negative Urine Ketones Negative Urine Occult Blood 1+ H Urine Nitrate Negative Urine Bilirubin Negative Urine Urobilinogen 1.0 Ur Leukocyte Esterase Negative Urine RBC 1-5/hpf Urine WBC 1-5/hpf Ur Squamous Epith Cells 1-5 /hpf Urine Bacteria Moderate (10-30) H Ur Culture Indicated? Specimen cultured Nasal Screen MRSA (PCR) Not detected Chlamy pneumoniae PCR Adenovirus (PCR) B. pertussis DNA (PCR) B.parapertussis DNA PCR Coronavirus OC43 (PCR) Coronavirus HKU1 (PCR) Coronavirus 229E (PCR) SARS-CoV-2 (PCR) Coronavirus NL63 (PCR) Human Metapneumovir PCR Influenza Type A (PCR) Influenza Type B (PCR) M. pneumoniae (PCR) Parainfluenza 1 (PCR) Parainfluenza 2 (PCR) Parainfluenza 3 (PCR) Parainfluenza 4 (PCR) RSV (PCR) Entero/Rhino (PCR) 06/14/22 06/14/22 06:05 10:30 WBC 17.5 H RBC 3.50 L Hgb 11.8 L Hct 35.0 L MCV 99.8 MCH 33.5 MCHC 33.6 RDW 14.5 Plt Count 142 L Neut % (Auto) 87.0 H Lymph % (Auto) 7.4 L [place] % (Auto) 4.6 Eos % (Auto) 0.7 L Baso % (Auto) 0.3 Neut # (Auto) 77709 H Lymph # (Auto) 1300 [place] # (Auto) 800 Eos # (Auto) 100 Baso # (Auto) 100 PT INR APTT Sodium 137 Potassium 4.2 Chloride 109 H Carbon Dioxide 20 L BUN 27 H Creatinine 2.05 H Estimated GFR 32 L BUN/Creatinine Ratio 13.2 Glucose 121 H Lactate Calcium 7.7 L Total Bilirubin 0.4 AST 28 ALT 27 Alkaline Phosphatase 71 Total Protein 5.5 L Albumin 3.0 L Globulin 2.5 Albumin/Globulin Ratio 1.2 Lipase Procalcitonin Urine Color Urine Appearance Urine pH Ur Specific [place] Urine Protein Urine Glucose (UA) Urine Ketones Urine Occult Blood Urine Nitrate Urine Bilirubin Urine Urobilinogen Ur Leukocyte Esterase Urine RBC Urine WBC Ur Squamous Epith Cells Urine Bacteria Ur Culture Indicated? Nasal Screen MRSA (PCR) Chlamy pneumoniae PCR Adenovirus (PCR) B. pertussis DNA (PCR) B.parapertussis DNA PCR Coronavirus OC43 (PCR) Coronavirus HKU1 (PCR) Coronavirus 229E (PCR) SARS-CoV-2 (PCR) Coronavirus NL63 (PCR) Human Metapneumovir PCR Influenza Type A (PCR) Influenza Type B (PCR) M. pneumoniae (PCR) Parainfluenza 1 (PCR) Parainfluenza 2 (PCR) Parainfluenza 3 (PCR) Parainfluenza 4 (PCR) RSV (PCR) Entero/Rhino (PCR) [facility] Medical History Arthritis Essential hypertension History of COVID-19 History of kidney stones Hyperlipidemia associated with type 2 diabetes mellitus Insulin dependent diabetes mellitus Surgical History History of tonsillectomy Family History Mother Dementia Father Heart attack Social History household members: significant other Smoking Status: Never smoker alcohol intake: current Discharge Plan Discharge Plan Patient Disposition: Home Provider Discharge Comment: You were admitted for fevers and we did not find a source. You will now be on 1 week of oral antibiotics. Please f/u with your PCP to get your blood counts checked to make sure your white blood cell count in improving. Discharge orders & Medications Prescriptions: New linezolid 600 mg tablet 600 mg PO Q12H 10 Days Qty: 20 0RF Continued insulin glargine [Lantus Solostar U-100 Insulin] 100 unit/mL (3 mL) Insulin Pen 28 unit SUBCUT QPM atorvastatin 10 mg Tablet 10 mg PO BEDTIME allopurinol 100 mg Tablet 100 mg PO BEDTIME finasteride 5 mg Tablet 5 mg PO BEDTIME lisinopril 10 mg Tablet 10 mg PO BEDTIME sodium bicarbonate 650 mg tablet 650 mg BID metformin 500 mg tablet extended release 24 hr 500 mg PO BEDTIME Trulicity 1.5 mg/0.5 mL pen injector 1.5 mg SUBCUT WEEKLY doxazosin 8 mg tablet 8 mg PO DAILY Discontinued bupropion HCl 150 mg Tablet Sustained-Release 12 Hr 150 mg PO BEDTIME Other Ambulatory Orders: Complete Blood Count AUTO DIFF (Urgent) Timeframe: 1 Week Facility: [facility] - Location: Laboratory Ordered By: Mark Mitchell Blood Culture (Routine) Timeframe: 1 Week Facility: [facility] - Location: Laboratory Ordered By: Mark Mitchell Visit Report/Discharge Packet Instructions: Amoxicillin Stand Alone Forms: Patient Portal/API, Stroke Signs & Symptoms Discharge Data Attending Provider: Vineet Warren Admit Date/Time: 06/13/22 20:40 Discharges patient from system. Discharge Date/Time: 06/14/22 13:38 Quality VTE Deep Vein Thrombosis/Pulmonary Embolism Present on Admission: No
--- NOTE | 2022-06-14 13:36 | PC.NURSE ---
Pt is dressed and ready for discharge home with Spouse. IV has been removed. D/C instructions reviewed, stroke education reviewed. Pt out via w/c by RN to pov with Spouse and all belongings.
[2022-06-15 07:02] LABS: Enterococcus faecalis DETECTED (Not Detect); Vancomycin-rest genes A/B Not Detected (Not Detect)
[2022-06-15 07:03] LABS: Acinetobacter calcoa-baumannii Not Detected (Not Detect); Bacteroides fragilis Not Detected (Not Detect); Candida albicans Not Detected (Not Detect); Candida auris Not Detected (Not Detect); Candida glabrata Not Detected (Not Detect); Candida krusei Not Detected (Not Detect); Candida parapsilosis Not Detected (Not Detect); Candida tropicalis Not Detected (Not Detect); Cryptococcus neoformans/gatti Not Detected (Not Detect); Enterobacter cloacae complex Not Detected (Not Detect); Enterobacterales Not Detected (Not Detect); Enterococcus faecium Not Detected (Not Detect); Haemophilus influenzae Not Detected (Not Detect); Klebsiella aerogenes Not Detected (Not Detect); Listeria monocytogenes Not Detected (Not Detect); Neisseria meningitidis Not Detected (Not Detect); Proteus species Not Detected (Not Detect); Pseudomonas aeruginosa Not Detected (Not Detect); Salmonella species Not Detected (Not Detect); Serratia marcescens Not Detected (Not Detect); Staphylococcus epidermidis Not Detected (Not Detect); Staphylococcus lugdunensis Not Detected (Not Detect); Staphylococcus species Not Detected (Not Detect); Stenotrophomonas maltophilia Not Detected (Not Detect); Streptococcus agalactiae (Gr B Not Detected (Not Detect); Streptococcus pneumonia Not Detected (Not Detect); Streptococcus pyogenes (Gr A) Not Detected (Not Detect); Streptococcus species Not Detected (Not Detect)
== END 2022-06-14 13:38 | disposition home or self-care (01) ==
LOC: ED 20:41 → AC 21:07
PROVIDERS: Student in an Organized Health Care Education/Training Program; Admitting Provider Internal Medicine; Emergency Provider Emergency Medicine; Referring Provider Emergency Medicine; Visit Provider Internal Medicine
DX: A41.9 Sepsis, unspecified organism (principal); N17.9 Acute kidney failure, unspecified; I12.9 Hypertensive chronic kidney disease with stage 1 through stage 4 chronic kidney disease, or unspecified chronic kidney disease; E11.22 Type 2 diabetes mellitus with diabetic chronic kidney disease; N18.30 Chronic kidney disease, stage 3 unspecified; Z20.822 Contact with and (suspected) exposure to COVID-19; Z79.4 Long term (current) use of insulin; Z79.84 Long term (current) use of oral hypoglycemic drugs; F32.A Depression, unspecified; N40.0 Benign prostatic hyperplasia without lower urinary tract symptoms
CPT/HCPCS: 36415; 71045; 71250; 74176; 80053; 81001; 82962; 83605; 83690; 84145; 85025; 85610; 85730; 87040; 87077; 87086; 87147; 87154; 87186; 87633; 87797; 93005; 93010; 96361; 96365; 96366; 96367; 96372; 99284; G0378; J0696; J1644

== ENCOUNTER → 2022-06-20 09:23 | Outpatient (CLI) | payer OTHER, SELFPAY ==
[2022-06-13 20:57] VITALS: BMI 33.9
[2022-06-20 10:26] LABS: Add Manual Diff / Slide Review NO; Basophils Absolute Auto 100 /uL (0-100); Eosinophils Absolute Auto 200 /uL (0-450); Eosinophils Percent Auto 1.9 % (2-4); Hematocrit 38.2 % (41-53); Hemoglobin 13.1 g/dL (13.5-17.5); Lymphocytes Absolute Auto 2200 /uL (1100-4500); Lymphocytes Percent Auto 24.1 % (25-40); Mean Corpuscular HGB Conc 34.3 % (30-36); Mean Corpuscular Hemoglobin 33.9 PG (26-34); Mean Corpuscular Volume 98.9 fL (80-100); Monocytes Absolute Auto 500 /uL (0-900); Monocytes Percent Auto 5.3 % (3-14); Neutrophils Absolute Auto 6100 /uL (1500-7000); Neutrophils Percent Auto 67.7 % (50-75); Platelet Count 225 X10^3/uL (150-400); Red Blood Cell Count 3.87 X10^6/uL (4.5-5.9); Red Cell Distribution Width 14.2 % (11.6-14.8)
== END ==
PROVIDERS: Referring Provider Student in an Organized Health Care Education/Training Program; Visit Provider Student in an Organized Health Care Education/Training Program
DX: D72.829 Elevated white blood cell count, unspecified (principal); R78.81 Bacteremia; B95.2 Enterococcus as the cause of diseases classified elsewhere
CPT/HCPCS: 36415; 85025; 87040

== ENCOUNTER 2024-08-13 06:43 | Inpatient (IN) | payer MEDICARE, SELFPAY ==
[2022-06-13 20:57] VITALS: BMI 33.9
[2024-08-13 06:57] VITALS: BP 197/93; PULSE 87; RESP 18; TEMP 36.7; O2SAT 99; BMI 25.0
--- NOTE | 2024-08-13 07:11 | ED.NEUROSD ---
HPI - Neuro Symptoms/Deficit General Chief Complaint: Neuro Symptoms/Deficit Stated Complaint: can't walk in a lot of pain x 2 days Time Seen by Provider: 08/13/24 07:06 Source: patient History of Present Illness HPI Narrative: 83-year-old man with a history of diabetes, hypertension, BPH who presents complaining of episodes well he will have total body shaking/increased motor tone lasting 3-4 hours. Tends to be set off by some type of emotion, he states he was watching TV and it started while watching a medical procedure? Dr. Tamiko Aleman?. Resolved spontaneously. Aside from the annoyance of having the physical tremor he does not complain of overt pain. He does have an appointment today to have blood drawn regarding his renal function. Majority of care is in [place] and we have minimal access to records. He was admitted to the hospital in May of 2022 with rigors. Today he is not having any symptoms of infection. On Anticoagulants: No Related Data Home Medications ?Medication ?Instructions ?Recorded ?Confirmed allopurinol 100 mg tablet 100 mg PO BEDTIME 10/31/21 06/13/22 atorvastatin 10 mg tablet 10 mg PO BEDTIME 10/31/21 06/13/22 finasteride 5 mg tablet 5 mg PO BEDTIME 10/31/21 06/13/22 insulin glargine 100 unit/mL (3 28 unit SUBCUT QPM 10/31/21 06/13/22 mL) subcutaneous pen (Lantus Solostar U-100 Insulin) lisinopril 10 mg tablet 10 mg PO BEDTIME 10/31/21 06/13/22 doxazosin 8 mg tablet 8 mg PO DAILY 06/13/22 06/13/22 dulaglutide 1.5 mg/0.5 mL 1.5 mg SUBCUT WEEKLY 06/13/22 06/13/22 subcutaneous pen injector (Trulicity) metformin 500 mg tablet,extended 500 mg PO BEDTIME 06/13/22 06/13/22 release 24 hr sodium bicarbonate 650 mg tablet 650 mg BID 06/13/22 06/13/22 Allergies Allergy/AdvReac Type Severity Reaction Status Date / Time No Known Drug Allergies Allergy Verified 08/13/24 06:57 Review of Systems Review of Systems Narrative: Pertinent positive and negative findings as per HPI Hematologic/Lymphatic On Anticoagulants: No Patient History Medical History History of kidney stones History of COVID-19 Arthritis Hyperlipidemia associated with type 2 diabetes mellitus Essential hypertension Insulin dependent diabetes mellitus Surgical History History of tonsillectomy Family History Mother Dementia Father Heart attack Social History household members: significant other Smoking Status: Never smoker alcohol intake: current Smoking Status: Never smoker alcohol intake frequency: 0-2 drinks per day Exam Initial Vital Signs Initial Vital Signs: Vital Signs Temperature 98.1 F 08/13/24 06:57 Pulse Rate 87 08/13/24 06:57 Respiratory Rate 18 08/13/24 06:57 Blood Pressure 197/93 H 08/13/24 06:57 Pulse Oximetry 99 08/13/24 06:57 Oxygen Delivery Method Room Air 08/13/24 06:57 General: Chronically ill-appearing, hard of hearing in no acute distress. Globally weak and using a wheelchair at baseline HEENT: Moist mucous membranes, normal sclera with reactive pupils, Respiratory: Lungs are clear to auscultation, no wheezing no rales no rhonchi. Full and symmetrical air movement Cardiac: Regular rate and rhythm no murmurs no bruits Abdomen: Soft, no tenderness no rebound no guarding Neurologic: Globally weak to the point that he has difficulty sitting up by himself. No increased muscle rigidity, no current tremors, moving all extremities, global weakness that he states is close to his baseline Extremities: No trauma, no significant lower extremity edema Psych: Cooperative, appropriate insight and affect Course Orders Ordered: ED Orders 08/13/24 08:29 CBC Auto Diff [Complete Blood Count AUTO DIFF] Stat CMP [Comprehensive Metabolic Panel] Stat Lactate (Lactic Acid) Stat Lipase Stat NT-proBNP (BNP-Adult 18+) Stat Troponin I Stat 08/13/24 09:37 UA Complete [Urinalysis and Microscopic] Stat Urine Culture Stat 08/13/24 10:03 XR chest 1V Stat Urinalysis and Microscopic Stat EKG-12 Lead Stat 08/13/24 10:55 Blood Culture Stat 08/13/24 12:34 Respiratory Panel (Film Array) Stat Sodium Chloride (Normal Saline 0.9%) 1,000 mls @ 150 mls/hr IV CONT VINAY Last Admin: 08/13/24 11:23 Dose: 150 mls/hr Documented By: ELSA Discontinued Medications Ceftriaxone Sodium 2,000 mg/ (Sodium Chloride) 100 mls @ 200 mls/hr IV NOW ONE Stop: 08/13/24 10:06 Last Admin: 08/13/24 11:22 Dose: 200 mls/hr Documented By: ELSA Vancomycin HCl/Dextrose (Vancomycin) 2,000 mg in 400 mls @ 200 mls/hr IV NOW ONE Stop: 08/13/24 12:18 Last Admin: 08/13/24 11:46 Dose: 200 mls/hr Documented By: ELSA Vancomycin HCl (Vancomycin Per Pharmacy) 1 request MISC NOW ONE Stop: 08/13/24 10:07 Last Admin: 08/13/24 11:47 Dose: 1 request Documented By: ELSA Vital Signs Vital signs: Vital Signs - 8 hr 08/13/24 06:57 08/13/24 09:35 Temperature 98.1 F Pulse Rate 87 78 Respiratory Rate 18 Blood Pressure 197/93 H 135/65 Pulse Oximetry 99 97 Oxygen Delivery Method Room Air MDM - Neuro Symptoms/Deficit Lab Data 08/13/24 08:29 08/13/24 08:29 Labs: Lab Results 08/13/24 08/13/24 Range/Units 08:29 09:37 WBC 18.7 H (4.5-11.0) X10^3/uL RBC 3.45 L (4.5-5.9) X10^6/uL Hgb 11.6 L (13.5-17.5) g/dL Hct 34.2 L (41-53) % MCV 99.1 (80-100) fL MCH 33.5 (26-34) PG MCHC 33.8 (30-36) % RDW 14.0 (11.6-14.8) % Plt Count 159 (150-400) X10^3/uL Neut % (Auto) 92.7 H (50-75) % Lymph % (Auto) 2.1 L (25-40) % [place] % (Auto) 5.0 (3-14) % Eos % (Auto) 0.0 L (2-4) % Baso % (Auto) 0.2 (0-2) % Neut # (Auto) 53774 H (1353-6167) /uL Lymph # (Auto) 400 L (2543-2365) /uL [place] # (Auto) 900 (0-900) /uL Eos # (Auto) 0 (0-450) /uL Baso # (Auto) 0 (0-100) /uL Sodium 132 L (137-145) mmol/L Potassium 3.6 (3.4-5.1) mmol/L Chloride 104 (98-107) mmol/L Carbon Dioxide 18 L (22-32) mmol/L BUN 37 H (9-20) mg/dL Creatinine 2.07 H (0.66-1.25) mg/dL Estimated GFR 31 L (>60) mL/min BUN/Creatinine Ratio 17.9 (6-22) Glucose 181 H (70-99) mg/dL Lactate 0.9 (0.7-2.1) mmol/L Calcium 8.6 (8.4-10.2) mg/dL Total Bilirubin 0.5 (0.2-1.3) mg/dL AST 27 (17-59) IU/L ALT 15 (<50) IU/L Alkaline Phosphatase 85 (38-126) U/L Troponin I 0.013 (0.01-0.034) ng/mL NT-Pro-B Natriuret Pep 1250 H (<450) pg/mL Total Protein 6.3 (6.3-8.2) g/dL Albumin 3.7 (3.5-5.0) g/dL Globulin 2.6 (1.7-4.1) g/dL Albumin/Globulin Ratio 1.4 (1.0-2.8) Lipase 66 (23-300) U/L Urine Color Yellow Urine Appearance Sl cloudy Urine pH 5.5 (4.5-8.0) Ur Specific [place] 1.020 (1.000-1.035) Urine Protein 3+ H (Negative) Urine Glucose (UA) Trace H (Negative) g/dL Urine Ketones Negative (NEGATIVE) Urine Occult Blood Trace-intact (Negative) Urine Nitrate Negative (Negative) Urine Bilirubin Negative (NEGATIVE) Urine Urobilinogen 0.2 (0.2) E.U./dL Ur Leukocyte Esterase Negative (NEGATIVE) Urine RBC 0-1/hpf (0-5/HPF) Urine WBC 1-5/hpf (0-5/HPF) Ur Squamous Epith Cells 0-1 /hpf (0-5/HPF) Urine Bacteria Many (>30) H (None) Ur Culture Indicated? Specimen cultured Vol Urine Centrifuged 10ml (spun) MDM Narrative Medical decision making narrative: CC: Shakes/rigors occurring a couple times a day over the last 3-4 days Complicating co-morbidities: Chronic kidney disease, hyperlipidemia, BPH, diabetes Data collected from: patient, Medical records reviewed: Discharge summary from June 13, 2022 with very similar presentation reviewed. At that point he had positive blood cultures with Enterococcus, pansensitive, and group B strep in his urine. Differential considered: Rigors, electrolyte abnormalities, sepsis, Exam documented above, pertinent findings include: Dramatic weakness, no other localizing symptoms, chest exam is benign belly exam is benign, no skin changes to suggest cellulitis cellulitis Lab Test results independently reviewed as above. Pertinent findings: CBC shows significant leukocytosis at 18.7 with 92.7% neutrophils. Mild anemia at 11.6 and 34.2 Chemistries are notable for stable renal function creatinine is 2 with GFR at 31, this is essentially unchanged. BNP is slightly elevated at 1250 Troponin is undetectable Lipase is unremarkable Urine shows protein, trace glucose many bacteria but no nitrites or leukocyte esterase it has been cultured Imaging studies independently reviewed: Chest x-ray suggest questionable left pleural effusion. Costophrenic angle is slightly blurred, no obvious pulmonary infiltrates Treatments: Vancomycin and ceftriaxone are started, fluids at 150 at our initiated. Discussion: 83-year-old gentleman with 3 days of rigors. Similar presentation 2 years ago and ended up having bacteremia unclear source but urine was suspected. He is increasingly weak generally feels unwell. Significant leukocytosis. Given his previous bacteremia with rigors and 3 days of rigors I am going to suggest hospitalization. I suspect he is again bacteremic, with his prior quaker he had had a blood cultures positive for Enterococcus Enterococcus and his urine showed strep B. antibiotic choices were based on that information. He apparently has not seen a doctor for a number of years as his nurse practitioner moved. He has been off all of his medications for at least 2 months. We will discuss with our hospitalist service for admission Discharge Plan Departure Patient Disposition: Admitted as Observation Clinical Impression: Rigor, Weakness Leukocytosis Qualifiers: Leukocytosis type: other Qualified Code(s): D72.828 - Other elevated white blood cell count
[2024-08-13 08:44] LABS: Add Manual Diff / Slide Review NO; Basophils Absolute Auto 0 /uL (0-100); Basophils Percent Auto 0.2 % (0-2); Eosinophils Absolute Auto 0 /uL (0-450); Hematocrit 34.2 % (41-53); Hemoglobin 11.6 g/dL (13.5-17.5); Lymphocytes Absolute Auto 400 /uL (1100-4500); Lymphocytes Percent Auto 2.1 % (25-40); Mean Corpuscular HGB Conc 33.8 % (30-36); Mean Corpuscular Hemoglobin 33.5 PG (26-34); Mean Corpuscular Volume 99.1 fL (80-100); Monocytes Absolute Auto 900 /uL (0-900); Neutrophils Absolute Auto 17400 /uL (1500-7000); Neutrophils Percent Auto 92.7 % (50-75); Platelet Count 159 X10^3/uL (150-400); Red Blood Cell Count 3.45 X10^6/uL (4.5-5.9); White Blood Cell Count 18.7 X10^3/uL (4.5-11.0)
[2024-08-13 08:54] LABS: Alanine Aminotransferase 15 IU/L (<50); Albumin 3.7 g/dL (3.5-5.0); Albumin Globulin Ratio 1.4 (1.0-2.8); Alkaline Phosphatase 85 U/L (38-126); Aspartate Aminotransferase 27 IU/L (17-59); BUN Creatinine Ratio 17.9 (6-22); Bilirubin Total 0.5 mg/dL (0.2-1.3); Blood Urea Nitrogen 37 mg/dL (9-20); Calcium 8.6 mg/dL (8.4-10.2); Carbon Dioxide 18 mmol/L (22-32); Chloride 104 mmol/L (98-107); Estimated Glomerular Filt Rate 31 mL/min (>60); Globulin 2.6 g/dL (1.7-4.1); Glucose 181 mg/dL (70-99); HEMOLYSIS < 15 (0-50); Potassium 3.6 mmol/L (3.4-5.1); Sodium 132 mmol/L (137-145); Total Protein 6.3 g/dL (6.3-8.2)
[2024-08-13 09:35] VITALS: BP 135/65; PULSE 78; O2SAT 97
[2024-08-13 09:50] LABS: Appearance Urine UA SL CLOUDY; Bilirubin Urine UA NEGATIVE (NEGATIVE); Color Urine UA YELLOW; Glucose Urine UA TRACE g/dL (Negative); Ketones Urine UA NEGATIVE (NEGATIVE); Leukocyte Esterase Urine UA NEGATIVE (NEGATIVE); Nitrite Urine UA NEGATIVE (Negative); Occult Blood Urine UA TRACE-INTACT (Negative); Protein Urine UA 3+ (Negative); Urobilinogen Urine UA 0.2 E.U./dL (0.2); pH Urine UA 5.5 (4.5-8.0)
[2024-08-13 09:55] LABS: Urine Volume 10mL (spun)
[2024-08-13 09:57] LABS: RBC Urine 0-1/HPF (0-5/HPF)
[2024-08-13 09:58] LABS: Bacteria Urine Many (>30); Culture Indicated Urine Specimen Cultured; Squamous Epithelial Cell Urine 0-1 /HPF (0-5/HPF); WBC Urine 1-5/HPF (0-5/HPF)
--- NOTE | 2024-08-13 10:03 | DI.RAD.S_ITS ---
PROCEDURE: XR CHEST 1V INDICATIONS: leukocytosis TECHNIQUE: One view of the chest was acquired. COMPARISON: [facility], CR, XR CHEST 1V, 06/13/2022, 18:10. FINDINGS: Surgical changes and devices: None. Lungs and pleura: No focal airspace consolidation. There is likely a small left pleural effusion. Mediastinum: Mediastinal contours appear normal. Heart size is normal. Scattered atheromatous calcifications are present within the aortic arch. Bones and chest wall: No suspicious bony lesions. Overlying soft tissues appear unremarkable. IMPRESSION: Questionable left pleural effusion. Lateral view could be used to further characterize findings. Dictated by: Karie Monsivais M.D. on 08/13/2024 at 11:14 Approved by: Karie Monsivais M.D. on 08/13/2024 at 11:14
[2024-08-13] MEDS: cefTRIAXone 2,000 MG in SODIUM CHLORIDE 0.9% 100 ML 200 MG IV (11:22)
[2024-08-13] MEDS: SODIUM CHLORIDE 0.9% 1,000 ML 150 ML IV (11:23)
[2024-08-13 11:27] LABS: Lipase 66 U/L (23-300)
[2024-08-13 11:29] LABS: Lactate (Lactic Acid) 0.9 mmol/L (0.7-2.1)
[2024-08-13 11:39] LABS: NT-proBNP (BNP-Adult 18+) 1250 pg/mL (<450); Troponin I 0.013 ng/mL (0.01-0.034)
[2024-08-13] MEDS: VANCOMYCIN 2,000 MG/400 ML PIGGYBACK 200 MG IV (11:46)
[2024-08-13] MEDS: VANCOMYCIN PER PHARMACY 1 REQUEST MISC (11:47)
--- NOTE | 2024-08-13 12:51 | PM.HP.1 ---
History of Present Illness History of Present Illness Date Patient Seen: 08/13/24 Chief complaint: can't walk in a lot of pain x 2 days Narrative: Mr. Manrique in an 81M with PMH Type 2 DM on insulin, BPH, HTN who presents to the hospital with shaking that he states was lasting approximately 5 hours. He was in his normal state of health. He chronically has neck pain, joint pain. He denies any fever, chills. Maybe has some abdominal pain. He dnoes not recall the last time he was in the hospital nor his prior bacteremia. He reports he stopped all his medications a few months ago because he was a bit light headed with movement and thought it was medication related. He has not restarted any. In the ED workup was done, vitals fairly unremarkable. Labs reviewed and notable for WBC 18.7, hgb 11.6, plts 159. Na 132, BUN 37, creatinine 2.07 (near baseline). Respiratory PCR panel negative. Admitted given presentation with concern for recurrent bacteremia. [facility] Medical History History of kidney stones History of COVID-19 Arthritis Hyperlipidemia associated with type 2 diabetes mellitus Essential hypertension Insulin dependent diabetes mellitus Surgical History History of tonsillectomy Family History Mother Dementia Father Heart attack Social History household members: significant other alcohol intake: former Meds Home Medications and Allergies Home Medications ?Medication ?Instructions ?Recorded ?Confirmed ?Type allopurinol 100 mg tablet 100 mg PO BEDTIME 10/31/21 06/13/22 History atorvastatin 10 mg tablet 10 mg PO BEDTIME 10/31/21 06/13/22 History finasteride 5 mg tablet 5 mg PO BEDTIME 10/31/21 06/13/22 History insulin glargine 100 unit/mL (3 28 unit SUBCUT QPM 10/31/21 06/13/22 History mL) subcutaneous pen (Lantus Solostar U-100 Insulin) lisinopril 10 mg tablet 10 mg PO BEDTIME 10/31/21 06/13/22 History doxazosin 8 mg tablet 8 mg PO DAILY 06/13/22 06/13/22 History dulaglutide 1.5 mg/0.5 mL 1.5 mg SUBCUT WEEKLY 06/13/22 06/13/22 History subcutaneous pen injector (Trulicity) metformin 500 mg tablet,extended 500 mg PO BEDTIME 06/13/22 06/13/22 History release 24 hr sodium bicarbonate 650 mg tablet 650 mg BID 06/13/22 06/13/22 History Allergies Allergy/AdvReac Type Severity Reaction Status Date / Time No Known Drug Allergies Allergy Verified 08/13/24 06:57 Review of Systems Review of Systems Narrative: All other systems reviewed with the patient and are negative unless otherwise stated. Exam Vital Signs (past 8 hours): - 08/13/24 06:57 08/13/24 09:35 Temperature 98.1 F Pulse Rate 87 78 Respiratory Rate 18 Blood Pressure 197/93 H 135/65 Pulse Oximetry 99 97 Oxygen Delivery Method Room Air Oxygen Delivery Method Room Air Narrative Exam Narrative: GEN: no acute distress HEENT: moist mucous membranes, PERRL NECK: trachea midline, no JVD PULM: clear bilaterally, no wheezes, rhonchi, rales CV: regular rate and rhythm, no murmurs ABD: soft, nontender, nondistended, no organomegaly EXT: warm and well perfused with no edema NEURO: awake, alert, no focal deficits Objective Labs 08/13/24 08:29 08/13/24 08:29 Labs: Laboratory Results - last 24 hr 08/13/24 08/13/24 08:29 09:37 WBC 18.7 H RBC 3.45 L Hgb 11.6 L Hct 34.2 L MCV 99.1 MCH 33.5 MCHC 33.8 RDW 14.0 Plt Count 159 Neut % (Auto) 92.7 H Lymph % (Auto) 2.1 L [place] % (Auto) 5.0 Eos % (Auto) 0.0 L Baso % (Auto) 0.2 Neut # (Auto) 40702 H Lymph # (Auto) 400 L [place] # (Auto) 900 Eos # (Auto) 0 Baso # (Auto) 0 Sodium 132 L Potassium 3.6 Chloride 104 Carbon Dioxide 18 L BUN 37 H Creatinine 2.07 H Estimated GFR 31 L BUN/Creatinine Ratio 17.9 Glucose 181 H Lactate 0.9 Calcium 8.6 Total Bilirubin 0.5 AST 27 ALT 15 Alkaline Phosphatase 85 Troponin I 0.013 NT-Pro-B Natriuret Pep 1250 H Total Protein 6.3 Albumin 3.7 Globulin 2.6 Albumin/Globulin Ratio 1.4 Lipase 66 Urine Color Yellow Urine Appearance Sl cloudy Urine pH 5.5 Ur Specific [place] 1.020 Urine Protein 3+ H Urine Glucose (UA) Trace H Urine Ketones Negative Urine Occult Blood Trace-intact Urine Nitrate Negative Urine Bilirubin Negative Urine Urobilinogen 0.2 Ur Leukocyte Esterase Negative Urine RBC 0-1/hpf Urine WBC 1-5/hpf Ur Squamous Epith Cells 0-1 /hpf Urine Bacteria Many (>30) H Ur Culture Indicated? Specimen cultured Vol Urine Centrifuged 10ml (spun) Assessment & Plan Assessment & Plan narrative: 1. Acute cystitis with concern for recurrent bacteremia - postive UA, history of enterobacter bacteremia - continue ceftriaxone and vancomycin for now - follow up cultures including blood and urine. - unclear if presenting symptoms are truely rigors, or some other neurological condition. Will continue to monitor. 2. CKD stage III - based on prior documentation cr probably near baseline at 2.07. Continue to monitor. 3. Hypertension - has stopped previous medications. Normotensive on admission will monitor. - Consider OT for SLUMS testing. 4. Type 2 Diabetes - previously on insulin but has since stopped all medications - glucose 180 on admit - continue sliding scale insulin - A1c ordered for AM. 5. Depression -continue bupropion 6. BPH -continue finasteride Code: DNI, surrogate is patient's Son DVT: Lovenox daily I have utilized all available immediate resources to obtain, update, or review the patient's current medications. Dispo: patient admitted under observation status. Depending on above results may need change to inpatient or possible discharge home tomorrow Additional history obtained via discussions with the ER provider. These discussions contributed to the creation of the above assessment and plan. I have reviewed patient's presenting documentation, labs, and imaging personally. Time-Based Coding :: [TOTAL MINUTES] spent with patient and on the chart (including review of chart, obtaining history, exam, reviewing outside data, placing orders, documenting exam and treatment plan, and counseling patient) on [DATE].
[2024-08-13 13:36] LABS: Adenovirus Not Detected (Not Detect); B. parapertussis Not Detected (Not Detecte); Bordetella pertussis Not Detected (Not Detect); Chlamydophila pneumoniae Not Detected (Not Detect); Coronavirus 229E Not Detected (Not Detect); Coronavirus HKU1 Not Detected (Not Detect); Coronavirus NL 63 Not Detected (Not Detect); Coronavirus OC43 Not Detected (Not Detect); Human Metapneumovirus Not Detected (Not Detect); Human Rhinovirus/Enterovirus Not Detected (Not Detect); Influenza A Not Detected (Not Detect); Influenza B Not Detected (Not Detect); Mycoplasma pneumoniae Not Detected (Not Detect); Parainfluenza Virus 1 Not Detected (Not Detect); Parainfluenza Virus 2 Not Detected (Not Detect); Parainfluenza Virus 3 Not Detected (Not Detect); Parainfluenza Virus 4 Not Detected (Not Detect); Respiratory Syncytial Virus Not Detected (Not Detect); SARS- CoV-2 Not Detected (Not Detecte)
[2024-08-13 14:00] VITALS: BP 144/71; PULSE 54; RESP 16; TEMP 36.7; O2SAT 100
[2024-08-13 14:04] VITALS: BMI 25.0
--- NOTE | 2024-08-13 15:26 | PC.NURSE ---
Patient is alert and oriented x4, he denies pain. Incontinent of urine, patients urine with strong odor. Dr. Spencer is aware. Patient will be on tele, bed alarm in place. Patient knows not to get up without assistance. We will see if this happens. Resting now.
--- NOTE | 2024-08-13 15:33 | PC.NURSE ---
Pt states at admission that he has not taken any of his medications in about 2 months, He stopped because he was worried about side effects, he said he would like to go back to his last dose of allopurinal previously prescribed to him.
[2024-08-13 17:00] VITALS: BP 160/69; PULSE 51; RESP 16; TEMP 36.6; O2SAT 97
[2024-08-13 17:11] LABS: POC Glucose 174 mg/dL (70-99)
[2024-08-13] MEDS: INSULIN LISPRO 100 UNIT/ML 3ML VIAL SUBCUT (17:12)
[2024-08-13 21:00] VITALS: BP 139/80; PULSE 52; RESP 18; TEMP 37.1; O2SAT 99
[2024-08-13 21:13] LABS: POC Glucose 167 mg/dL (70-99)
[2024-08-13 22:00] VITALS: O2SAT 97
[2024-08-14] VITALS (10 sets, daily range): BP systolic 143–198; BP diastolic 81–117; PULSE 49–58; RESP 13–18; TEMP 36.2–37; O2SAT 95–99
[2024-08-14 07:11] LABS: Add Manual Diff / Slide Review NO; Basophils Absolute Auto 0 /uL (0-100); Basophils Percent Auto 0.4 % (0-2); Eosinophils Absolute Auto 100 /uL (0-450); Eosinophils Percent Auto 1.1 % (2-4); Hematocrit 30.7 % (41-53); Hemoglobin 10.6 g/dL (13.5-17.5); Lymphocytes Absolute Auto 1300 /uL (1100-4500); Lymphocytes Percent Auto 10.4 % (25-40); Mean Corpuscular HGB Conc 34.5 % (30-36); Mean Corpuscular Hemoglobin 34.1 PG (26-34); Mean Corpuscular Volume 98.8 fL (80-100); Monocytes Absolute Auto 900 /uL (0-900); Monocytes Percent Auto 7.1 % (3-14); Neutrophils Absolute Auto 9800 /uL (1500-7000); Platelet Count 150 X10^3/uL (150-400); Red Cell Distribution Width 13.8 % (11.6-14.8); White Blood Cell Count 12.1 X10^3/uL (4.5-11.0)
[2024-08-14 07:20] LABS: BUN Creatinine Ratio 18.6 (6-22); Blood Urea Nitrogen 32 mg/dL (9-20); Calcium 8.4 mg/dL (8.4-10.2); Carbon Dioxide 21 mmol/L (22-32); Chloride 107 mmol/L (98-107); Estimated Glomerular Filt Rate 39 mL/min (>60); Glucose 138 mg/dL (70-99); HEMOLYSIS < 15 (0-50); Potassium 3.9 mmol/L (3.4-5.1); Sodium 135 mmol/L (137-145)
[2024-08-14 07:37] LABS: Procalcitonin 38.2 ng/mL (<0.5)
[2024-08-14 08:01] LABS: POC Glucose 152 mg/dL (70-99)
[2024-08-14] MEDS: INSULIN LISPRO 100 UNIT/ML 3ML VIAL SUBCUT ×2 (08:10→12:06)
[2024-08-14] MEDS: ENOXAPARIN 40 MG/0.4 ML SYRINGE SUBCUT (08:13)
[2024-08-14 08:49] LABS: Hemoglobin A1C% w Est Avg Glu 6.3 % (4.0-6.0)
--- NOTE | 2024-08-14 10:14 | P.PN_ITS ---
Subjective Subjective Interval history: 83 M admitted with sepsis, likely secondary to urinary source. He is seemingly less confused today. No other complaints but states he feels weak and has been struggling with ambulation due to left hip discomfort over the past few months. No fever, chills, or redness over the area. Exam Vital Signs (past 8 hours): - 08/14/24 06:00 08/14/24 10:00 Pulse Oximetry 99 97 Oxygen Delivery Method Room Air Room Air Oxygen Delivery Method Room Air Oxygen Flow Rate 0 Narrative Exam Narrative: GEN: no acute distress HEENT: moist mucous membranes, PERRL NECK: trachea midline, no JVD PULM: clear bilaterally, no wheezes, rhonchi, rales CV: regular rate and rhythm, no murmurs ABD: soft, nontender, nondistended, no organomegaly EXT: warm and well perfused with no edema NEURO: awake, alert, no focal deficits Objective Labs 08/14/24 06:40 08/14/24 06:40 Labs: Laboratory Results - last 24 hr 08/13/24 08/13/24 08/13/24 08:29 12:34 17:06 WBC RBC Hgb Hct MCV MCH MCHC RDW Plt Count Neut % (Auto) Lymph % (Auto) [place] % (Auto) Eos % (Auto) Baso % (Auto) Neut # (Auto) Lymph # (Auto) [place] # (Auto) Eos # (Auto) Baso # (Auto) Sodium Potassium Chloride Carbon Dioxide BUN Creatinine Estimated GFR BUN/Creatinine Ratio Glucose POC Whole Bld Glucose 174 H Hemoglobin A1c Lactate 0.9 Calcium Magnesium Troponin I 0.013 NT-Pro-B Natriuret Pep 1250 H Lipase 66 Procalcitonin Chlamy pneumoniae PCR Not detected Adenovirus (PCR) Not detected B. pertussis DNA (PCR) Not detected B.parapertussis DNA PCR Not detected Coronavirus OC43 (PCR) Not detected Coronavirus HKU1 (PCR) Not detected Coronavirus 229E (PCR) Not detected SARS-CoV-2 (PCR) Not detected Coronavirus NL63 (PCR) Not detected Human Metapneumovir PCR Not detected Influenza Type A (PCR) Not detected Influenza Type B (PCR) Not detected M. pneumoniae (PCR) Not detected Parainfluenza 1 (PCR) Not detected Parainfluenza 2 (PCR) Not detected Parainfluenza 3 (PCR) Not detected Parainfluenza 4 (PCR) Not detected RSV (PCR) Not detected Entero/Rhino (PCR) Not detected 08/13/24 08/14/24 08/14/24 20:55 06:40 07:56 WBC 12.1 H RBC 3.10 L Hgb 10.6 L Hct 30.7 L MCV 98.8 MCH 34.1 H MCHC 34.5 RDW 13.8 Plt Count 150 Neut % (Auto) 81.0 H Lymph % (Auto) 10.4 L [place] % (Auto) 7.1 Eos % (Auto) 1.1 L Baso % (Auto) 0.4 Neut # (Auto) 9800 H Lymph # (Auto) 1300 [place] # (Auto) 900 Eos # (Auto) 100 Baso # (Auto) 0 Sodium 135 L Potassium 3.9 Chloride 107 Carbon Dioxide 21 L BUN 32 H Creatinine 1.72 H Estimated GFR 39 L BUN/Creatinine Ratio 18.6 Glucose 138 H POC Whole Bld Glucose 167 H 152 H Hemoglobin A1c 6.3 H Lactate Calcium 8.4 Magnesium 2.0 Troponin I NT-Pro-B Natriuret Pep Lipase Procalcitonin 38.2 H Chlamy pneumoniae PCR Adenovirus (PCR) B. pertussis DNA (PCR) B.parapertussis DNA PCR Coronavirus OC43 (PCR) Coronavirus HKU1 (PCR) Coronavirus 229E (PCR) SARS-CoV-2 (PCR) Coronavirus NL63 (PCR) Human Metapneumovir PCR Influenza Type A (PCR) Influenza Type B (PCR) M. pneumoniae (PCR) Parainfluenza 1 (PCR) Parainfluenza 2 (PCR) Parainfluenza 3 (PCR) Parainfluenza 4 (PCR) RSV (PCR) Entero/Rhino (PCR) [facility] Medical History History of kidney stones History of COVID-19 Arthritis Hyperlipidemia associated with type 2 diabetes mellitus Essential hypertension Insulin dependent diabetes mellitus Surgical History History of tonsillectomy Family History Mother Dementia Father Heart attack Social History household members: significant other Smoking Status: Never smoker alcohol intake: former Assessment & Plan Assessment & Plan narrative: 1. Sepsis without shock secondary to Acute cystitis with concern for recurrent bacteremia - postive UA, history of enterobacter bacteremia - continue ceftriaxone and vancomycin for now still pending cultures which are thus far negative. - symptoms are likely due to rigors given improvement thus far with antitbiotics, some concern for neurologic tremor possibly. PT ordered. - WBC improving today. Procalcitonin 38.2 today from 46 on admit, continue to trend. 2. Acute metabolic encephalopathy, and KELLY on CKD secondary to #1 above - Cr has improved from 2.2 to 1.7 today. - patient appears less confused today compared to yesterday, improving with above therapies. - PT/OT ordered 3. Hypertension - has stopped previous medications. Normotensive on admission will monitor. - Consider OT for SLUMS testing. - Bradycardia on monitor, stable, no arrythmia 4. Type 2 Diabetes, no longer on home medications - previously on insulin but has since stopped all medications - glucose 180 on admit - continue sliding scale insulin - A1c is 6.3% 5. Depression -continue bupropion 6. BPH -continue finasteride Code: DNI, surrogate is patient's Son DVT: Lovenox daily Dispo: Inpatient with sepsis. Awaiting culture results and PT/OT evaluations today. Additional history obtained via discussions with the therapists, pharmacists, and outsole caser today. These discussions contributed to the creation of the above assessment and plan. I have reviewed patient's presenting documentation, labs, and imaging personally. Time-Based Coding :: [TOTAL MINUTES] spent with patient and on the chart (including review of chart, obtaining history, exam, reviewing outside data, placing orders, documenting exam and treatment plan, and counseling patient) on [DATE].
--- NOTE | 2024-08-14 11:45 | PT.IIE ---
Surgical History (Last Reviewed 08/13/24 @ 14:48 by Tushar Spencer DO) History of tonsillectomy Medical History (Last Reviewed 08/13/24 @ 14:48 by Tushar Spencer DO) Arthritis Essential hypertension History of COVID-19 History of kidney stones Hyperlipidemia associated with type 2 diabetes mellitus Insulin dependent diabetes mellitus Physical Therapy Inpatient Evaluation/Re-Eval M1 PT/OT-IP Prior Functional Status Start: 08/14/24 13:37 Freq: NEEDED Status: Active Protocol: Document 08/14/24 11:45 AB (Rec: 08/14/24 13:48 AB [id number]) Medical Review Prior Functional Status Medical History Yes Reviewed Communication able to make needs known Mobility and Gait pt stated that he was independent with all mobilities and ambulation without AD Social History Household Members none Living Arrangements House Number of Floors ( One Floor Floors) Number of Stairs To pt lives alone but stays at his girlfriend's house ~ 3- Enter/Railing? 4 days a week; pt plans to go to her GF's house upon d/ c: GF's home set up provided 1 step to enter Home Environment Standard Height Toilet,Walk in Shower Home Equipment Straight Cane,Shower Seat without Backrest,Hand Held Shower,Grab Bars Near Toilet,Grab Bars In Shower M2 PT-IP Current Condition Start: 08/14/24 13:37 Freq: NEEDED Status: Active Protocol: Document 08/14/24 11:45 AB (Rec: 08/14/24 13:48 AB [id number]) Physical Therapy Current Condition Current Condition Evaluation Date 08/14/24 Treatment Diagnosis cystitis; sepsis; difficulty in walking Onset Date 08/13/24 M3 PT-IP Subjective Start: 08/14/24 13:37 Freq: NEEDED Status: Active Protocol: Document 08/14/24 11:45 AB (Rec: 08/14/24 13:48 AB [id number]) Subjective Physical Therapy Visit Type Type Initial Evaluation Visit Start Time 11:45 Visit Stop Time 12:15 Number of [employer] Visits 0 Physical Therapy Visit Comments Patient Comments agreeable to do PT M4 PT-IP Mobility and Gait Start: 08/14/24 13:37 Freq: NEEDED Status: Active Protocol: Document 08/14/24 11:45 AB (Rec: 08/14/24 13:48 AB [id number]) PT-Bed Mobility Assessment Supine to Sit Supine to Sit Standby Assistance PT-Transfer Assessment Sit to and From Stand Sit to and from Standby Assistance,Use of Upper Extremities Stand Transfers Transfer Destination Chair Transfer Technique ambulated Transfer Ability Level of Assist Standby Assistance,1 Person Assistance,Use of Upper Extremities Comments Mobility Comments pt in bed and agreeable to do PT. obtained PLOF and home setup. BP:192/111; rechecked: 194/109 . nurse aware completed supine to sit SBA. able to sit on EOB SBA. sit to stand SBA and ambulated ~ 20 ft SBA without AD CGA. pt found to be needing to be cleaned up. NAC informed. pt ambulated again in room without AD ~ 40 ft SBA to CGA with (+) LOB during turning. pt sat back on EOB. NAC in room to assist pt with hygiene care. pt step transferred to chair SBA. pt completed up/down step stool CGA. pt sat back on chair. Left pt with NAC Gait Assessment Gait Gait Assistance Standby Assistance,Contact Guard Assist Required: Distance (Feet) 40 Able to Maintain Yes Weight Bearing Status During Gait Assistive Devices Assistive Device None,Gait Belt Orthotic/Prosthetic No Devices or Brace: Gait Deviations General Gait Pattern Decreased Stride Length,Decreased Feet Clearance Factors Limiting Gait Function Factors Limiting Decreased Activity Tolerance,Decreased Strength,Poor Gait Function Balance,Poor Safety Awareness Stair Climbing Assessment Evaluation Level of Assist On Contact Guard Assistance Stairs Devices Stair Climbing None Assistive Devices Technique/Endurance Stair Climbing Ascend and Descend Direction Stair Climbing Step to Step Technique Number of Steps 1 Climbed Query Text: Stair Climbing Set # 2 Repetitions (reps) PT-Balance Assessment Sitting Balance and Reactions Static Sitting Normal Balance Ability Dynamic Sitting Good Balance Ability Standing Balance and Reactions Static Standing Good Balance Ability Dynamic Standing Fair Balance Ability Device Used without AD M5 PT-IP Objective Assessments Start: 08/14/24 13:37 Freq: NEEDED Status: Active Protocol: Document 08/14/24 11:45 AB (Rec: 08/14/24 13:48 AB [id number]) Orientation Orientation/Cognition Level of Alertness Alert Orientation Name,Place,Situation Language Function Hard of Hearing Ability Safety Awareness Decreased Safety Awareness Memory Description Short Term Impaired Gross Range of Motion Lower Extremity ROM Assessment Within Functional Limits Strength Lower Extremity Strength Assessment Within Functional Limits Muscle Tone Muscle Tone WNL Yes M6 PT-IP Treatment Start: 08/14/24 13:37 Freq: NEEDED Status: Active Protocol: Document 08/14/24 11:45 AB (Rec: 08/14/24 13:48 AB [id number]) Physical Therapy Treatment Education Education Provided Safety M7 PT-IP Assessment and Plan Start: 08/14/24 13:37 Freq: NEEDED Status: Active Protocol: Document 08/14/24 11:45 AB (Rec: 08/14/24 13:48 AB [id number]) PT Summary Assessment and Plan Potential Rehabilitation Fair Potential Status of Condition Evolving at Evaluation Summary Impairments Pain,ROM,Strength,Balance,Coordination,Sensation,Tone, Cognition,Bed Mobility,Transfers,Gait,Activity Tolerance Assessment Summary pt is an 83 y/o M who is admitted for sepsis; cystitis. pt requiring SBA to CGA with mobility without AD but with unsteady gait and (+) LOB. pt plans to go to his girlfriend's house upon d/c and friend will be able to assist. will continue to assess progress. Goals Bed Mobility Goal Independent Transfer Goal Independent Gait Goal Independent Gait Distance 200 Other Goals up/down 1 step mod I Days to Meet Goals 10 Frequency of Treatment Frequency Of Once a Day Treatment Treatment Plan Physical Therapy Bed Mobility Training,Transfer Training,Gait Training, Treatment Plan Therapeutic Exercise,Balance Retraining,Discharge Planning,Hot or Cold Pack,Neuromuscular Re-ed, Coordination Retraining,Manual Therapy Precautions Other Precautions falls Recommendations To Nursing Amount of Assist 1 Person Assist Needed Discharge Recommendations PT Discharge Home with Assistance,Outpatient PT Recommendations Transportation Needs Private Vehicle at Discharge - PT assist 1
[2024-08-14] MEDS: cefTRIAXone 2,000 MG in SODIUM CHLORIDE 0.9% 100 ML 200 MG IV (12:06)
[2024-08-14 13:45] LABS: POC Glucose 180 mg/dL (70-99)
--- NOTE | 2024-08-14 14:06 | OT.IP.EVAL ---
Past Medical History (Last Reviewed 08/13/24 @ 14:48 by Tushar Spencer DO) Arthritis Essential hypertension History of COVID-19 History of kidney stones Hyperlipidemia associated with type 2 diabetes mellitus Insulin dependent diabetes mellitus Surgical History (Last Reviewed 08/13/24 @ 14:48 by Tushar Spencer DO) History of tonsillectomy Occupational Therapy Inpatient Evaluation/Re-Eval M1 PT/OT-IP Prior Functional Status Start: 08/14/24 13:37 Freq: NEEDED Status: Active Protocol: Document 08/14/24 15:28 [facility] (Rec: 08/14/24 15:47 [facility] Desktop) Medical Review Prior Functional Status Medical History Yes Reviewed Communication able to make needs known Mobility and Gait pt stated that he was independent with all mobilities and ambulation without AD Activities of Daily Pt states able to do all ADL,IADL, and drives. Pt Living and IADL's states has trouble with his memory and has to write things down often. Prior Functional Pt states 6 months ago not able to move his right arm Level (Other details one day and since that time has not completely ) recovered for his strength per pt . Pt states both arms feel a bit numb R > L arm. Social History Household Members none Living Arrangements House Number of Floors ( One Floor Floors) Number of Stairs To pt lives alone but stays at his girlfriend's house ~ 3- Enter/Railing? 4 days a week; pt plans to go to her GF's house upon d/ c: GF's home set up provided 1 step to enter Home Environment Standard Height Toilet,Walk in Shower Home Equipment Front Wheel Walker,Four Wheel Walker,Straight Cane, Shower Seat without Backrest,Hand Held Shower,Grab Bars Near Toilet,Grab Bars In Shower M2 OT-IP Current Condition Start: 08/14/24 15:27 Freq: Status: Active Protocol: Document 08/14/24 15:28 [facility] (Rec: 08/14/24 15:47 [facility] Desktop) Occupational Therapy Current Condition Current Condition Evaluation Date 08/14/24 Treatment Diagnosis Sepsis Diagnosis Onset Date 08/13/24 M3 OT- IP Subjective and Pain Start: 08/14/24 15:27 Freq: Status: Active Protocol: Document 08/14/24 15:28 [facility] (Rec: 08/14/24 15:47 [facility] Desktop) OT- Subjective Occupational Therapy Visit Type Type Initial Evaluation Visit Start Time 13:33 Visit Stop Time 14:06 Occupational Therapy Visit Comments Patient Comments Pt agreed to do OT eval and his GF in the room. Patient/Caregiver TO get better and go home. Goals OT Pain Assessment Pain When Pain Assessed At Rest Pain Present Pain Present Denied Pain M4 OT- IP ADL's Start: 08/14/24 15:27 Freq: Status: Active Protocol: Document 08/14/24 15:28 [facility] (Rec: 08/14/24 15:47 [facility] Desktop) OT TBR-Rocn-Yesxdgn Comments OT Self-Feeding No issues anticipated not at meal time. Comments OT ADL-Grooming Comments OT Grooming Comments NO observed, pt able to wash his hands at the sink with SBA. OT ADL-Oral Care Comments Oral Care Comments Not observed. OT ADL-Dressing General Eval Lower Body Dressing Standby Assistance Ability Comments OT Dressing Comments Pt able to katalina/doff his socks while seated. OT ADL-Toileting General Evaluation Toileting Ability Standby Assistance Comments OT Toileting Assist for set-up while standing to urinate. Comments OT ADL-Bathing Comments OT Bathing Comments Best for pt to continue to use the shower chair at home and have assist. M5 OT- IP IADL's Start: 08/14/24 15:27 Freq: Status: Active Protocol: Document 08/14/24 15:28 [facility] (Rec: 08/14/24 15:47 [facility] Desktop) OT-Instrumental Activities of Daily Living Home Safety Awareness Home Safety Comments To further assess. Medication Management Medication Best for pt to have assist at this time. Management Comments Money Management Money Management Best to have pt's GF assist at this time as a bit slow Comments for math calculations today on the SLUMS. Meal Preparation Meal Preparation Caregiver Provides Assist Gas Technician Gas Technician Caregiver Provides Assist Driving Driving Concerns Identified Regarding Safety M6 OT- IP Functional Cognition Start: 08/14/24 15:27 Freq: Status: Active Protocol: Document 08/14/24 15:28 [facility] (Rec: 08/14/24 15:47 [facility] Desktop) Cognitive Factors Limiting Selfcare Function Cognitive Ability Level of Alertness Alert Patient Orientation Name,Age,Birthday,Month,Date,Year,Day of Week,Place, Situation Attention Span Capable of Focused Attention,Capable of Sustained Ability Attention Ability to Follow Able to Follow One Step Commands Commands Memory Description Short Term Impaired Executive Function Unable to Remember Details Ability Cognitive Tests SLUMS Pt scored 25/30 which implies normal for cognition as pt has high school for education. Pt however needing increased time to complete and having to correct himself multiple time. Pt states 1923 and then able to correct himself 2024. At first said in was September and then states July. Pt able to recall 10 animals in one minute, able to recall 3/5 objects after time passed, and able to answer 3/4 questions right after paragraph read. Cognitive Comments Cognitive Assessment Pt slow to follow command and very [place] as does not have Comments his hear aids present in the hospital. Pt having to correct his answers as times. OT- Vision and Hearing OT- Hearing Assessment OT- Hearing Hearing Impaired,Use of Hearing Aids Assessment OT- Vision Assessment Vision Assessment To assess tomorrow, pt able to read the clock. Comments M7 OT- IP Mobility and Balance Start: 08/14/24 15:27 Freq: Status: Active Protocol: Document 08/14/24 15:28 [facility] (Rec: 08/14/24 15:47 [facility] Desktop) OT- Bed Mobility Assessment Supine to Sit Supine to Sit Assist Standby Assistance Sit to Supine Sit to Supine Assist Standby Assistance OT-Transfer Assessment Sit to and From Stand Sit to and from Standby Assistance Stand Transfers Transfer Ability Standby Assistance,Contact Guard Assistance Technique Transfer Destination Bed Transfer Technique Stand Step Pivot Devices Transfer Assistive Gait Belt Devices Comments Mobility Comments SBA for bed mobility and occasional CGA for balance as pt is unsteady on his feet otherwise close SBA. At this time best for pt to use his walker for now for safety. OT- Balance Assessment Sitting Balance and Reactions Static Sitting Good Balance Ability Dynamic Sitting Good Balance Ability Standing Balance and Reactions Static Standing Fair Balance Ability Dynamic Standing Fair Balance Ability M8 OT- IP Objective Assessments Start: 08/14/24 15:27 Freq: Status: Active Protocol: Document 08/14/24 15:28 [facility] (Rec: 08/14/24 15:47 [facility] Desktop) OT Gross Range of Motion Upper Extremity Range of Motion ROM Impairments grossly WFL OT Strength Upper Extremity Strength Assessment Right Impaired Comments Strength Comments RUE 4+/5, LUE 5/5 Pt states he is very dominant with right UE and feels much weaker than before episode 6 months ago on not been able to move his RUE one day. Pt states his RUE has progressively gotten better but not 100%. OT Sensation Assessment Comments Summary Comments Intact for light touch , slight increased in time for proprioception and kinesthesia for RUE compared to left side. M9 OT- IP Assessment and Plan Start: 08/14/24 15:27 Freq: Status: Active Protocol: Document 08/14/24 15:28 [facility] (Rec: 08/14/24 15:47 [facility] Desktop) OT Summary Assessment and Plan Potential Rehabilitation Good Potential Analytic Complexity Moderate at Evaluation Summary OT Impairments Strength,Balance,Functional Cognition,Functional Mobility,Dressing,Toileting,Bathing,Toilet Transfers, Shower Transfers,Activity Tolerance Progress Towards Slow Progress due to Medical Issues,Slow Progress due Goals to Activity Tolerance Assessment Summary Pt MOD complexity and main barrier are decreased dynamic balance, STM, strength of RUE, and now would benefit from assist at home and use of device to walk with for safety. Pt would benefit from outpt PT and assist at home. Goals Self-Feeding Goal Independent Grooming Goal Independent Dressing Goal Independent Toileting Goal Independent Bathing Goal Independent Toilet Transfer Goal Independent Shower Transfer Goal Independent Days to Meet Goals 5 Frequency of Treatment Other frequency 5x/week Treatment Plan OT Treatment Plan ADL Training,Functional Cognition Training,Functional Mobility,Patient/Family Education,Discharge Planning Other Treatment [place] MAking Part B, shower Recommendations and Next Treatment Focus Discharge Recommendations OT Discharge Home with Assistance,Outpatient PT Recommendations Transportation Needs Private Vehicle at Discharge
--- NOTE | 2024-08-14 14:19 | PC.NURSE ---
Day shift: Dr Spencer made aware of Pt's increased BP at approx 1230 today.
--- NOTE | 2024-08-14 15:38 | CM.DANOTE ---
DCP Assessment Note pt is a 83yo M admitted with sepsis/AMS. cultures pending. PCP Bettina Manzo at [facility] [employer] [facility] and self pay WIRE MACHINE CUTTER reviewed EMR. per provider in morning rounds, pt less confused today. renal fx and kidneys better. cultures neg. anticipate another day potential dc tomorrow. PT=home with assistance. OT pending. WIRE MACHINE CUTTER entered room and introduced self and role. pt pleasantly and minimally confused during interaction, seemed to respond appropriately to this WIRE MACHINE CUTTER. pt accompanied by girlfrienrachel Sheba at bedside. pt very [place]. pt reports living with girlfriend in [place]. indep with ADLs/only uses walking sticks for long distances. reports drives short distances. reports girlfriend can drive him home. no hx of HH or SNF. interested in alternative PCP resources. Asked this WIRE MACHINE CUTTER call his Kidney provider Dr. Haresh Burroughs at [facility], he has an OP appt tomorrow. WIRE MACHINE CUTTER provided list of providers accepting new pts with his ins in his area. WIRE MACHINE CUTTER called Dr. Burroughs's office and left a voicemail per pt request to cancel appt. P: anticipate return home with girlfriend when medically stable. no identified CM needs at this time. will continue to follow in case any DCP needs should arise. ROMI Arias Discharge Planning/Care Management CM Discharge Assessment Start: 08/13/24 12:59 Freq: Status: Active Protocol: Document 08/14/24 15:35 [facility] (Rec: 08/14/24 15:36 [facility] Desktop) Discharge Planning Assessment Assigned Discharge ROMI Ji Commercial Counsel MARIA ISABEL/Assigned Sheba, partner Designee Name Contact Information [phone] Advance Directives? No History Provided By Patient,Family Member Prior Living House Arrangements Household Members none Type of Drives own vehicle transporation used prior to admit Discharge Plan Home Transportation family in POV Arrangement Review Status In Process Please Provide Date 08/14/24 Initial DC Assessment Was Performed Next Review Type Continued Stay Review
[2024-08-14 16:09] LABS: POC Glucose 128 mg/dL (70-99)
[2024-08-14] MEDS: lisinopriL 10 MG TABLET PO (16:13)
[2024-08-14 20:56] LABS: POC Glucose 151 mg/dL (70-99)
[2024-08-15] VITALS (13 sets, daily range): BP systolic 143–171; BP diastolic 76–98; PULSE 46–69; RESP 14–18; TEMP 36.6–37.3; O2SAT 89–97
[2024-08-15] MEDS: VANCOMYCIN 1,500 MG/300 ML PIGGYBACK 200 MG IV (02:27)
[2024-08-15 06:20] LABS: Add Manual Diff / Slide Review NO; Basophils Absolute Auto 100 /uL (0-100); Basophils Percent Auto 0.9 % (0-2); Eosinophils Absolute Auto 200 /uL (0-450); Eosinophils Percent Auto 2.1 % (2-4); Hematocrit 33.2 % (41-53); Hemoglobin 11.4 g/dL (13.5-17.5); Lymphocytes Absolute Auto 1600 /uL (1100-4500); Lymphocytes Percent Auto 19.6 % (25-40); Mean Corpuscular HGB Conc 34.3 % (30-36); Mean Corpuscular Hemoglobin 33.8 PG (26-34); Mean Corpuscular Volume 98.5 fL (80-100); Monocytes Absolute Auto 600 /uL (0-900); Neutrophils Absolute Auto 5900 /uL (1500-7000); Neutrophils Percent Auto 70.4 % (50-75); Platelet Count 174 X10^3/uL (150-400); Red Blood Cell Count 3.37 X10^6/uL (4.5-5.9); White Blood Cell Count 8.3 X10^3/uL (4.5-11.0)
[2024-08-15 06:26] LABS: BUN Creatinine Ratio 23.2 (6-22); Blood Urea Nitrogen 35 mg/dL (9-20); Calcium 8.6 mg/dL (8.4-10.2); Carbon Dioxide 21 mmol/L (22-32); Chloride 106 mmol/L (98-107); Estimated Glomerular Filt Rate 46 mL/min (>60); Glucose 142 mg/dL (70-99); HEMOLYSIS < 15 (0-50); Potassium 4.1 mmol/L (3.4-5.1); Sodium 135 mmol/L (137-145)
--- NOTE | 2024-08-15 07:44 | PM.PN.1 ---
Subjective Subjective Interval history: Summary: 83 M admitted with sepsis, likely secondary to urinary source. He is seemingly less confused today. No other complaints but states he feels weak and has been struggling with ambulation due to left hip discomfort over the past few months. No fever, chills, or redness over the area. Blood cx remain negative. Cr cx pending. S: Presented with rigors. These have resolved with antibiotics. Blood cultures and urine culture remained negative, and/or are pending. He denies URI symptoms, abdominal pain, diarrhea, or urinary symptoms. Exam Vital Signs (past 8 hours): - 08/15/24 00:00 08/15/24 02:00 08/15/24 03:45 Temperature 97.8 F 97.8 F Pulse Rate 56 L 50 L Respiratory Rate 18 16 Blood Pressure 162/86 H 143/76 H Pulse Oximetry 97 96 97 Oxygen Delivery Method Room Air Oxygen Flow Rate 0 0 08/15/24 06:00 Temperature Pulse Rate Respiratory Rate Blood Pressure Pulse Oximetry 97 Oxygen Delivery Method Room Air Oxygen Flow Rate Oxygen Delivery Method Room Air Oxygen Flow Rate 0 Narrative Exam Narrative: NAD, alert and oriented. Fluent speech. Lungs are clear, normal rate and effort. Heart is regular, no murmur gallop or rub. Abdomen is soft, non distended. Extremities are free of edema. Objective Labs 08/15/24 05:30 08/15/24 05:30 Labs: Laboratory Results - last 24 hr 08/14/24 08/14/24 08/14/24 06:40 07:56 11:56 WBC RBC Hgb Hct MCV MCH MCHC RDW Plt Count Neut % (Auto) Lymph % (Auto) [place] % (Auto) Eos % (Auto) Baso % (Auto) Neut # (Auto) Lymph # (Auto) [place] # (Auto) Eos # (Auto) Baso # (Auto) Sodium Potassium Chloride Carbon Dioxide BUN Creatinine Estimated GFR BUN/Creatinine Ratio Glucose POC Whole Bld Glucose 152 H 180 H Hemoglobin A1c 6.3 H Calcium Magnesium Procalcitonin 38.2 H 08/14/24 08/14/24 08/15/24 16:06 20:51 05:30 WBC 8.3 RBC 3.37 L Hgb 11.4 L Hct 33.2 L MCV 98.5 MCH 33.8 MCHC 34.3 RDW 14.0 Plt Count 174 Neut % (Auto) 70.4 Lymph % (Auto) 19.6 L [place] % (Auto) 7.0 Eos % (Auto) 2.1 Baso % (Auto) 0.9 Neut # (Auto) 5900 Lymph # (Auto) 1600 [place] # (Auto) 600 Eos # (Auto) 200 Baso # (Auto) 100 Sodium 135 L Potassium 4.1 Chloride 106 Carbon Dioxide 21 L BUN 35 H Creatinine 1.51 H Estimated GFR 46 L BUN/Creatinine Ratio 23.2 H Glucose 142 H POC Whole Bld Glucose 128 H 151 H Hemoglobin A1c Calcium 8.6 Magnesium 2.0 Procalcitonin 26.0 H PFSH Medical History History of kidney stones History of COVID-19 Arthritis Hyperlipidemia associated with type 2 diabetes mellitus Essential hypertension Insulin dependent diabetes mellitus Surgical History History of tonsillectomy Family History Mother Dementia Father Heart attack Social History household members: none Smoking Status: Never smoker alcohol intake: former Assessment & Plan Assessment & Plan narrative: 1. Sepsis without shock secondary to Acute cystitis with concern for recurrent bacteremia, improved. - postive UA, history of enterobacter bacteremia. - continue ceftriaxone and vancomycin for now still pending cultures. 2. Acute septic encephalopathy, and KELLY on CKD secondary to #1 above, improved. - Cr has improved from 2.2 to 1.7 today. - clear mentally. - PT/OT assessments. 3. Hypertension, stable. - has stopped previous medications. Normotensive on admission will monitor. - Consider OT for SLUMS testing. - Bradycardia on monitor, stable, no arrythmia 4. Type 2 Diabetes, no longer on home medications. Stable. - previously on insulin but has since stopped all medications - glucose 180 on admit - continue sliding scale insulin - A1c is 6.3% 5. Depression, stable. -continue bupropion 6. BPH, stable. -continue finasteride PLAN: -continue antibiotics, PT assessment. Follow cultures today. Code: DNI, surrogate i Time-Based Coding :: [TOTAL MINUTES] spent with patient and on the chart (including review of chart, obtaining history, exam, reviewing outside data, placing orders, documenting exam and treatment plan, and counseling patient) on [DATE].
[2024-08-15 07:49] LABS: POC Glucose 181 mg/dL (70-99)
[2024-08-15] MEDS: lisinopriL 10 MG TABLET PO (08:09)
[2024-08-15] MEDS: ENOXAPARIN 40 MG/0.4 ML SYRINGE SUBCUT (08:09)
[2024-08-15] MEDS: INSULIN LISPRO 100 UNIT/ML 3ML VIAL SUBCUT ×2 (08:10→11:50)
[2024-08-15] MEDS: cefTRIAXone 2,000 MG in SODIUM CHLORIDE 0.9% 100 ML 200 MG IV (10:14)
--- NOTE | 2024-08-15 11:36 | PT.IPTN ---
Current Diagnoses Acute cystitis without hematuria (08/13/24) Physical Therapy Treatment Note M2 PT-IP Current Condition Start: 08/14/24 13:37 Freq: NEEDED Status: Active Protocol: Document 08/14/24 11:45 AB (Rec: 08/14/24 13:48 AB [id number]) Physical Therapy Current Condition Current Condition Evaluation Date 08/14/24 Treatment Diagnosis cystitis; sepsis; difficulty in walking Onset Date 08/13/24 M3 PT-IP Subjective Start: 08/14/24 13:37 Freq: NEEDED Status: Active Protocol: Document 08/15/24 11:36 DLM (Rec: 08/15/24 11:57 DLM Desktop) Subjective Physical Therapy Visit Type Type Treatment Note Visit Start Time 10:50 Visit Stop Time 11:36 Notes 46 min Number of PARTS LISTER Visits 0 Physical Therapy Visit Comments Patient Comments He reports back pain that has flared up with his girlfriend driving over a bump at the end of the driveway. He describes the pain on left side into hip area. He plans to stay with his Girlfriend at discharge . Her house has one stair to enter. His house has 6 stairs to enter. Patient Goals Get better Therapy Pain Assessment Pain When Pain Assessed During Exercise Pain Present Pain Present Pain Reported Location Back Intensity 2 Scale Used Numeric (0 - 10) Description Aching Pain Management Re-positioning Techniques M4 PT-IP Mobility and Gait Start: 08/14/24 13:37 Freq: NEEDED Status: Active Protocol: Document 08/15/24 11:36 DLM (Rec: 08/15/24 11:57 DLM Desktop) PT-Bed Mobility Assessment Rolling Type of Rolling Roll to Right Level of Assist Independent Supine to Sit Supine to Sit Independent Sit to Supine Sit to Supine Independent Scooting Scooting to Edge of Independent Bed PT-Transfer Assessment Sit to and From Stand Sit to and from Standby Assistance,Use of Upper Extremities Stand Equipment Transfer Assistive None,Gait Belt Device Transfers Transfer Destination Bed,Chair Transfer Technique Stand Step Pivot Transfer Ability Level of Assist Standby Assistance Comments Mobility Comments Trialed the FWW and no device. Pt shows improved balance without a device this visit. He is sitting up in recliner. Used a rolled up blanket for back support while sitting up to manage his low back pain. He reports less back pain after exercises this visit. Pt left sitting up in the recliner after treatment with chair alarm in place. Gait Assessment Gait Gait Assistance Standby Assistance Required: Distance (Feet) 200 Assistive Devices Assistive Device None,Gait Belt Factors Limiting Gait Function Factors Limiting Decreased Activity Tolerance Gait Function Comments Gait Comments He reports mild fatigue with gait this visit but recovered well with seated rest break. Noted improved standing balance during gait. He has intermittent increased lateral sway with single limb support on left but no loss of balance. Stair Climbing Assessment Evaluation Level of Assist On Standby Assistance Stairs Devices Stair Climbing Left Railing,Right Railing Assistive Devices Technique/Endurance Stair Climbing Ascend and Descend Direction Stair Climbing Step Over Step,Step to Step Technique Number of Steps 3 Climbed Stair Climbing Set # 2 Repetitions (reps) Comments Stair Climbing he tolerated stairs well, he needs UE support of at Comments least one rail to complete stairs safely PT-Balance Assessment Sitting Balance and Reactions Static Sitting Normal Balance Ability Dynamic Sitting Normal Balance Ability Standing Balance and Reactions Static Standing Good Balance Ability Dynamic Standing Fair Balance Ability Device Used none M5 PT-IP Objective Assessments Start: 08/14/24 13:37 Freq: NEEDED Status: Active Protocol: Document 08/14/24 11:45 AB (Rec: 08/14/24 13:48 AB [id number]) Orientation Orientation/Cognition Level of Alertness Alert Orientation Name,Place,Situation Language Function Hard of Hearing Ability Safety Awareness Decreased Safety Awareness Memory Description Short Term Impaired Gross Range of Motion Lower Extremity ROM Assessment Within Functional Limits Strength Lower Extremity Strength Assessment Within Functional Limits Muscle Tone Muscle Tone WNL Yes M6 PT-IP Treatment Start: 08/14/24 13:37 Freq: NEEDED Status: Active Protocol: Document 08/15/24 11:36 DLM (Rec: 08/15/24 11:57 DLM Desktop) Physical Therapy Treatment Other Treatments Other Treatment Exercises in supine: single knee to chest stretch, Performed lower trunk rotation stretch, Straight leg raise with opposite knee flexed and focus on hamstring stretch, bridging M7 PT-IP Assessment and Plan Start: 08/14/24 13:37 Freq: NEEDED Status: Active Protocol: Document 08/15/24 11:36 DLM (Rec: 08/15/24 11:57 DLM Desktop) PT Summary Assessment and Plan Summary Impairments Pain,ROM,Strength,Balance,Coordination,Sensation,Tone, Cognition,Bed Mobility,Transfers,Gait,Activity Tolerance Progress Towards Progressing Toward Goals Goals Assessment Summary Richie is alert and sitting up in the recliner today. He reports feeling better over-all today. He continues to have increased low back pain into left hip area that started before this admission. He shows good improvement in Physical Therapy with increased activity tolerance and improving standing balance. He participated in exercises with reports of decreased back pain after the exercises. Pt plans to stay with his Girlfriend at discharge for some extra help. Continue to recommend discharge home with assist and out-pt Physical Therapy. Goals Bed Mobility Goal Independent Transfer Goal Independent Gait Goal Independent Gait Distance 200 Other Goals up/down 1 step mod I Days to Meet Goals 10 Frequency of Treatment Frequency Of Once a Day Treatment Treatment Plan Physical Therapy Bed Mobility Training,Transfer Training,Gait Training, Treatment Plan Therapeutic Exercise,Balance Retraining,Discharge Planning,Hot or Cold Pack,Neuromuscular Re-ed, Coordination Retraining,Manual Therapy Other exercises for low back pain Recommendations and Next Treatment Focus Precautions Other Precautions fall risk, hard of hearing Recommendations To Nursing Amount of Assist Standby Assistance Needed Discharge Recommendations PT Discharge Home with Assistance,Outpatient PT Recommendations Transportation Needs Private Vehicle at Discharge - PT assist 1
[2024-08-15 11:52] LABS: POC Glucose 164 mg/dL (70-99)
--- NOTE | 2024-08-15 13:05 | OT.IP.TRT ---
Current Diagnoses Acute cystitis without hematuria (08/13/24) Occupational Therapy Treatment Note M2 OT-IP Current Condition Start: 08/14/24 15:27 Freq: Status: Active Protocol: Document 08/14/24 15:28 [facility] (Rec: 08/14/24 15:47 [facility] Desktop) Occupational Therapy Current Condition Current Condition Evaluation Date 08/14/24 Treatment Diagnosis Sepsis Diagnosis Onset Date 08/13/24 M3 OT- IP Subjective and Pain Start: 08/14/24 15:27 Freq: Status: Active Protocol: Document 08/15/24 12:46 [facility] (Rec: 08/15/24 13:04 [facility] Desktop) OT- Subjective Occupational Therapy Visit Type Type Treatment Note Visit Start Time 11:45 Visit Stop Time 12:23 Occupational Therapy Visit Comments Patient Comments Pt states already sponged off earlier and agreed to do cognitive assessment. Patient/Caregiver TO go home. Goals OT Pain Assessment Pain When Pain Assessed At Rest Pain Present Pain Present Denied Pain M4 OT- IP ADL's Start: 08/14/24 15:27 Freq: Status: Active Protocol: Document 08/14/24 15:28 [facility] (Rec: 08/14/24 15:47 [facility] Desktop) OT [id number] Comments OT Self-Feeding No issues anticipated not at meal time. Comments OT ADL-Grooming Comments OT Grooming Comments NO observed, pt able to wash his hands at the sink with SBA. OT ADL-Oral Care Comments Oral Care Comments Not observed. OT ADL-Dressing General Eval Lower Body Dressing Standby Assistance Ability Comments OT Dressing Comments Pt able to katalina/doff his socks while seated. OT ADL-Toileting General Evaluation Toileting Ability Standby Assistance Comments OT Toileting Assist for set-up while standing to urinate. Comments OT ADL-Bathing Comments OT Bathing Comments Best for pt to continue to use the shower chair at home and have assist. M5 OT- IP IADL's Start: 08/14/24 15:27 Freq: Status: Active Protocol: Document 08/14/24 15:28 [facility] (Rec: 08/14/24 15:47 [facility] Desktop) OT-Instrumental Activities of Daily Living Home Safety Awareness Home Safety Comments To further assess. Medication Management Medication Best for pt to have assist at this time. Management Comments Money Management Money Management Best to have pt's GF assist at this time as a bit slow Comments for math calculations today on the [employer]. Meal Preparation Meal Preparation Caregiver Provides Assist Cycle Analyst Cycle Analyst Caregiver Provides Assist Driving Driving Concerns Identified Regarding Safety M6 OT- IP Functional Cognition Start: 08/14/24 15:27 Freq: Status: Active Protocol: Document 08/15/24 12:46 [facility] (Rec: 08/15/24 13:04 [facility] Desktop) Cognitive Factors Limiting Selfcare Function Cognitive Ability Level of Alertness Alert Patient Orientation Name,Age,Birthday,Month,Date,Year,Day of Week,Place, Situation Attention Span Capable of Focused Attention,Capable of Sustained Ability Attention Ability to Follow Able to Follow One Step Commands Commands Memory Description Short Term Impaired Executive Function Unable to Switch Focus,Unable to Remember Details Ability Cognitive Comments Cognitive Assessment Pt scored 347 seconds on [place] [employer] Part B which Comments implies severe impairment for visual attention, mental flexibility, task switching, executive functioning and problem solving. Suggested pt not drive to drive at this time. Pt getting emotional of having lots of stressors and able to talk to pt of stress management suggestions. M7 OT- IP Mobility and Balance Start: 08/14/24 15:27 Freq: Status: Active Protocol: Document 08/14/24 15:28 [facility] (Rec: 08/14/24 15:47 [facility] Desktop) OT- Bed Mobility Assessment Supine to Sit Supine to Sit Assist Standby Assistance Sit to Supine Sit to Supine Assist Standby Assistance OT-Transfer Assessment Sit to and From Stand Sit to and from Standby Assistance Stand Transfers Transfer Ability Standby Assistance,Contact Guard Assistance Technique Transfer Destination Bed Transfer Technique Stand Step Pivot Devices Transfer Assistive Gait Belt Devices Comments Mobility Comments SBA for bed mobility and occasional CGA for balance as pt is unsteady on his feet otherwise close SBA. At this time best for pt to use his walker for now for safety. OT- Balance Assessment Sitting Balance and Reactions Static Sitting Good Balance Ability Dynamic Sitting Good Balance Ability Standing Balance and Reactions Static Standing Fair Balance Ability Dynamic Standing Fair Balance Ability M8 OT- IP Objective Assessments Start: 08/14/24 15:27 Freq: Status: Active Protocol: Document 08/14/24 15:28 [facility] (Rec: 08/14/24 15:47 [facility] Desktop) OT Gross Range of Motion Upper Extremity Range of Motion ROM Impairments grossly WFL OT Strength Upper Extremity Strength Assessment Right Impaired Comments Strength Comments RUE 4+/5, LUE 5/5 Pt states he is very dominant with right UE and feels much weaker than before episode 6 months ago on not been able to move his RUE one day. Pt states his RUE has progressively gotten better but not 100%. OT Sensation Assessment Comments Summary Comments Intact for light touch , slight increased in time for proprioception and kinesthesia for RUE compared to left side. M9 OT- IP Assessment and Plan Start: 08/14/24 15:27 Freq: Status: Active Protocol: Document 08/15/24 12:46 [facility] (Rec: 08/15/24 13:04 [facility] Desktop) OT Summary Assessment and Plan Potential Rehabilitation Good Potential Analytic Complexity Moderate at Evaluation Summary OT Impairments Strength,Balance,Functional Cognition,Functional Mobility,Dressing,Toileting,Bathing,Toilet Transfers, Shower Transfers,Activity Tolerance Progress Towards Progressing Toward Goals Goals Assessment Summary Pt moving better today and able to go over stress management with pt . Pt scored 347 seconds on [place] [employer] Part B which implies severe impairment for visual attention, mental flexibility, task switching, executive functioning and problem solving. Suggested pt not drive to drive at this time. Pt getting emotional of having lots of stressors and able to talk to pt of stress management suggestions. Pt to go home with assist when medically stable. Goals Self-Feeding Goal Independent Grooming Goal Independent Dressing Goal Independent Toileting Goal Independent Bathing Goal Independent Toilet Transfer Goal Independent Shower Transfer Goal Independent Days to Meet Goals 3 Frequency of Treatment Frequency Of Once a Day Treatment Treatment Plan OT Treatment Plan ADL Training,Functional Cognition Training,Functional Mobility,Patient/Family Education,Discharge Planning Other Treatment shower Recommendations and Next Treatment Focus Discharge Recommendations OT Discharge Home with Assistance,Outpatient PT Recommendations Transportation Needs Private Vehicle at Discharge
[2024-08-15 16:26] LABS: POC Glucose 120 mg/dL (70-99)
[2024-08-15 20:21] LABS: POC Glucose 120 mg/dL (70-99)
[2024-08-15] MEDS: VANCOMYCIN 1,250 MG/250 ML PIGGYBACK 250 MG IV (21:30)
[2024-08-16 02:00] VITALS: O2SAT 96
[2024-08-16 06:00] VITALS: BP 149/74; PULSE 45; RESP 18; TEMP 36.4; O2SAT 96
[2024-08-16 06:06] LABS: Add Manual Diff / Slide Review NO; Basophils Absolute Auto 100 /uL (0-100); Basophils Percent Auto 0.8 % (0-2); Eosinophils Absolute Auto 200 /uL (0-450); Eosinophils Percent Auto 2.3 % (2-4); Hematocrit 34.2 % (41-53); Hemoglobin 11.7 g/dL (13.5-17.5); Lymphocytes Absolute Auto 2000 /uL (1100-4500); Lymphocytes Percent Auto 25.2 % (25-40); Mean Corpuscular HGB Conc 34.1 % (30-36); Mean Corpuscular Hemoglobin 33.6 PG (26-34); Mean Corpuscular Volume 98.7 fL (80-100); Monocytes Absolute Auto 500 /uL (0-900); Monocytes Percent Auto 6.6 % (3-14); Neutrophils Absolute Auto 5100 /uL (1500-7000); Neutrophils Percent Auto 65.1 % (50-75); Platelet Count 193 X10^3/uL (150-400); Red Blood Cell Count 3.47 X10^6/uL (4.5-5.9); White Blood Cell Count 7.8 X10^3/uL (4.5-11.0)
[2024-08-16 06:11] LABS: BUN Creatinine Ratio 26.1 (6-22); Blood Urea Nitrogen 43 mg/dL (9-20); Calcium 8.7 mg/dL (8.4-10.2); Carbon Dioxide 21 mmol/L (22-32); Chloride 109 mmol/L (98-107); Estimated Glomerular Filt Rate 41 mL/min (>60); Glucose 147 mg/dL (70-99); HEMOLYSIS < 15 (0-50); Magnesium 2.1 mg/dL (1.6-2.3); Potassium 4.2 mmol/L (3.4-5.1); Sodium 137 mmol/L (137-145)
[2024-08-16 07:35] LABS: POC Glucose 160 mg/dL (70-99)
[2024-08-16 07:58] VITALS: O2SAT 96
[2024-08-16 08:00] VITALS: BP 162/91; PULSE 49; RESP 16; TEMP 36.5; O2SAT 97
[2024-08-16 08:02] VITALS: BP 162/91; PULSE 61
[2024-08-16] MEDS: lisinopriL 10 MG TABLET PO (08:02)
[2024-08-16] MEDS: ENOXAPARIN 40 MG/0.4 ML SYRINGE SUBCUT (08:03)
[2024-08-16] MEDS: INSULIN LISPRO 100 UNIT/ML 3ML VIAL SUBCUT ×2 (08:03→11:45)
[2024-08-16 11:00] VITALS: O2SAT 97
[2024-08-16 11:44] LABS: POC Glucose 147 mg/dL (70-99)
[2024-08-16] MEDS: cefTRIAXone 2,000 MG in SODIUM CHLORIDE 0.9% 100 ML 200 MG IV (11:44)
--- NOTE | 2024-08-16 11:57 | OT.IP.TRT ---
Current Diagnoses Acute cystitis without hematuria (08/13/24) Occupational Therapy Treatment Note M2 OT-IP Current Condition Start: 08/14/24 15:27 Freq: Status: Active Protocol: Document 08/14/24 15:28 [facility] (Rec: 08/14/24 15:47 [facility] Desktop) Occupational Therapy Current Condition Current Condition Evaluation Date 08/14/24 Treatment Diagnosis Sepsis Diagnosis Onset Date 08/13/24 M3 OT- IP Subjective and Pain Start: 08/14/24 15:27 Freq: Status: Active Protocol: Document 08/16/24 11:52 [facility] (Rec: 08/16/24 11:56 [facility] Desktop) OT- Subjective Occupational Therapy Visit Type Type Treatment Note Visit Start Time 11:43 Visit Stop Time 11:51 Occupational Therapy Visit Comments Patient Comments Pt not wanting to shower but agreed to go over memory strategies. Patient/Caregiver TO go home. Goals OT Pain Assessment Pain When Pain Assessed At Rest Pain Present Pain Present Denied Pain M4 OT- IP ADL's Start: 08/14/24 15:27 Freq: Status: Active Protocol: Document 08/14/24 15:28 [facility] (Rec: 08/14/24 15:47 [facility] Desktop) OT [id number] Comments OT Self-Feeding No issues anticipated not at meal time. Comments OT ADL-Grooming Comments OT Grooming Comments NO observed, pt able to wash his hands at the sink with SBA. OT ADL-Oral Care Comments Oral Care Comments Not observed. OT ADL-Dressing General Eval Lower Body Dressing Standby Assistance Ability Comments OT Dressing Comments Pt able to katalina/doff his socks while seated. OT ADL-Toileting General Evaluation Toileting Ability Standby Assistance Comments OT Toileting Assist for set-up while standing to urinate. Comments OT ADL-Bathing Comments OT Bathing Comments Best for pt to continue to use the shower chair at home and have assist. M5 OT- IP IADL's Start: 08/14/24 15:27 Freq: Status: Active Protocol: Document 08/14/24 15:28 [facility] (Rec: 08/14/24 15:47 [facility] Desktop) OT-Instrumental Activities of Daily Living Home Safety Awareness Home Safety Comments To further assess. Medication Management Medication Best for pt to have assist at this time. Management Comments Money Management Money Management Best to have pt's GF assist at this time as a bit slow Comments for math calculations today on the [employer]. Meal Preparation Meal Preparation Caregiver Provides Assist Health Outcomes Liaison Health Outcomes Liaison Caregiver Provides Assist Driving Driving Concerns Identified Regarding Safety M6 OT- IP Functional Cognition Start: 08/14/24 15:27 Freq: Status: Active Protocol: Document 08/16/24 11:52 [facility] (Rec: 08/16/24 11:56 [facility] Desktop) Cognitive Factors Limiting Selfcare Function Cognitive Ability Level of Alertness Alert Patient Orientation Name,Age,Birthday,Month,Date,Year,Day of Week,Place, Situation Attention Span Capable of Focused Attention,Capable of Sustained Ability Attention Ability to Follow Able to Follow One Step Commands Commands Memory Description Short Term Impaired Cognitive Comments Cognitive Assessment Able to go over memory strategies with pt. Pt has good Comments understanding for information sheet. M7 OT- IP Mobility and Balance Start: 08/14/24 15:27 Freq: Status: Active Protocol: Document 08/14/24 15:28 [facility] (Rec: 08/14/24 15:47 [facility] Desktop) OT- Bed Mobility Assessment Supine to Sit Supine to Sit Assist Standby Assistance Sit to Supine Sit to Supine Assist Standby Assistance OT-Transfer Assessment Sit to and From Stand Sit to and from Standby Assistance Stand Transfers Transfer Ability Standby Assistance,Contact Guard Assistance Technique Transfer Destination Bed Transfer Technique Stand Step Pivot Devices Transfer Assistive Gait Belt Devices Comments Mobility Comments SBA for bed mobility and occasional CGA for balance as pt is unsteady on his feet otherwise close SBA. At this time best for pt to use his walker for now for safety. OT- Balance Assessment Sitting Balance and Reactions Static Sitting Good Balance Ability Dynamic Sitting Good Balance Ability Standing Balance and Reactions Static Standing Fair Balance Ability Dynamic Standing Fair Balance Ability M8 OT- IP Objective Assessments Start: 08/14/24 15:27 Freq: Status: Active Protocol: Document 08/14/24 15:28 [facility] (Rec: 08/14/24 15:47 [facility] Desktop) OT Gross Range of Motion Upper Extremity Range of Motion ROM Impairments grossly WFL OT Strength Upper Extremity Strength Assessment Right Impaired Comments Strength Comments RUE 4+/5, LUE 5/5 Pt states he is very dominant with right UE and feels much weaker than before episode 6 months ago on not been able to move his RUE one day. Pt states his RUE has progressively gotten better but not 100%. OT Sensation Assessment Comments Summary Comments Intact for light touch , slight increased in time for proprioception and kinesthesia for RUE compared to left side. M9 OT- IP Assessment and Plan Start: 08/14/24 15:27 Freq: Status: Active Protocol: Document 08/16/24 11:52 [facility] (Rec: 08/16/24 11:56 [facility] Desktop) OT Summary Assessment and Plan Potential Rehabilitation Good Potential Analytic Complexity Moderate at Evaluation Summary Progress Towards Progressing Toward Goals Goals Assessment Summary Pt able to independently do bed mobility and get to the recliner for lunch. Able to go over and give pt information for memory strategies. Pt to go home with his GF when medically stable. Goals Bathing Goal Independent Days to Meet Goals 1 Frequency of Treatment Frequency Of Once a Day Treatment Treatment Plan OT Treatment Plan ADL Training,Functional Cognition Training,Functional Mobility,Patient/Family Education,Discharge Planning Other Treatment shower Recommendations and Next Treatment Focus Discharge Recommendations OT Discharge Home with Assistance Recommendations Transportation Needs Private Vehicle at Discharge
--- NOTE | 2024-08-16 13:26 | P.DS_ITS ---
History of Present Illness History of Present Illness Chief complaint: can't walk in a lot of pain x 2 days Narrative: From H&P: Mr. Manrique in an 81M with PMH Type 2 DM on insulin, BPH, HTN who presents to the hospital with shaking that he states was lasting approximately 5 hours. He was in his normal state of health. He chronically has neck pain, joint pain. He denies any fever, chills. Maybe has some abdominal pain. He dnoes not recall the last time he was in the hospital nor his prior bacteremia. He reports he stopped all his medications a few months ago because he was a bit light headed with movement and thought it was medication related. He has not restarted any. In the ED workup was done, vitals fairly unremarkable. Labs reviewed and notable for WBC 18.7, hgb 11.6, plts 159. Na 132, BUN 37, creatinine 2.07 (near baseline). Respiratory PCR panel negative. Admitted given presentation with concern for recurrent bacteremia. Discharge Providers Provider Date of admission: 08/13/24 12:47 Discharge Date: 08/16/24 Consults: 08/14/24 08:59 Consult to Occupational Therapy Evaluate & Treat Comment: Physician Instructions: Evaluate and treat Consult to Physical Therapy Evaluate & Treat Comment: Physician Instructions: Evaluate and Treat Discharge provider: Shine Gold MD Summary Hospital Course Discharge Diagnosis: 1. Sepsis without shock secondary to Acute cystitis, improved. - postive UA, history of enterobacter bacteremia. -treated with antibiotics. 2. Acute septic encephalopathy, and KELLY on CKD secondary to #1 above, improved. 3. Hypertension, stable. 4. Type 2 Diabetes, no longer on home medications. Stable. - previously on insulin but has since stopped all medications - glucose 180 on admit - continue sliding scale insulin - A1c is 6.3% 5. Depression, stable. -continue bupropion 6. BPH, stable. -continue finasteride Hospital Course: He was admitted and treated for sepsis with IV fluids and antibiotics. Ultimately blood cultures and urine culture were negative. The patient did improve with IV fluids and antibiotics. He had no further rigors after being treated. The patient had stable blood sugars. On the day of discharge he felt that he was near baseline and he and his were comfortable with discharge home with oral antibiotics for an additional 5 days. He will be treated for presumptive urinary tract infection despite a urine culture that has not supported. The patient we will have levofloxacin once a day, renally dose to 250 mg for his chronic kidney disease. He did have a degree of KELLY, this did improve with IV fluids. His mental status was at his baseline at the time of discharge. Status at Discharge Cognitive/behavioral status at discharge: oriented Functional status at discharge: uses cane/walker Overall status at discharge: patient is back to baseline Time Spent with Patient Time spent: Greater than 30 minutes Exam Vital Signs (past 8 hours): - 08/16/24 06:00 08/16/24 07:58 08/16/24 08:00 Temperature 97.6 F 97.7 F Pulse Rate 45 L 49 L Respiratory Rate 18 16 Blood Pressure 149/74 H 162/91 H Pulse Oximetry 96 96 97 Oxygen Delivery Method Room Air Oxygen Flow Rate 0 0 0 08/16/24 08:02 08/16/24 11:00 Temperature Pulse Rate 61 Respiratory Rate Blood Pressure 162/91 H Pulse Oximetry 97 Oxygen Delivery Method Room Air Oxygen Flow Rate 0 Oxygen Delivery Method Room Air Oxygen Flow Rate 0 Narrative Exam Narrative: NAD, alert and oriented. Fluent speech. Lungs are clear, normal rate and effort. Heart is regular, no murmur gallop or rub. Abdomen is soft, non distended. Extremities are free of edema. Objective Imaging Multiple studies:: Radiologist's impression: Chest x-ray: Questionable left pleural effusion. Lateral view could be used to further characterize findings. Chest abdomen pelvis CT: 1. No evidence of acute process in the chest, abdomen, and pelvis. 2. Severe coronary artery calcifications. 3. There are 3 pulmonary nodules in the right lung, the largest of which measures 8 mm. Please refer to the chart below for follow-up recommendations. Fleischner Society criteria for SOLID lung nodule followup. Nodule size (mm)Low-risk patientHigh-risk patient<6 (single or multiple)No routine followup.Optional CT at 12 months. 6-8 (single or multiple)CT at 6-12 months, then optional CT at 18-24 mo.CT at 6-12 months, then CT at 18-24 months. >8 (single)CT at 3 months, PET-CT, or biopsy. Same as for low-risk pts. >8 (multiple)CT at 3-6 months, then optional CT at 18-24 mo.CT at 3-6 months, then CT at 18-24 months. Fleischner Society criteria for SUB-SOLID lung nodule followup. Solitary pure ground-glass nodules<6 mm (ground glass or part solid)No followup needed. 6 mm or larger (ground glass)CT at 6-12 months to confirm persistence, then CT every 2 years until 5 years.6 mm or larger (part solid)CT at 3-6 months to confirm persistence, then annual CT until 5 years if unchanged and solid component remains <6 mm. Multiple sub-solid nodules<6 mmCT at 3-6 months, then CT consider at 2 & 4 years for high risk patients. [address] at 3-6 months. Subsequent management based on most suspicious lesions. Recommendations do not apply to lung cancer screening, patients with immunosuppression, or patients with known primary cancer. Labs 08/16/24 05:30 08/16/24 05:30 Labs: Laboratory Results - last 24 hr 08/15/24 08/15/24 08/16/24 16:24 20:19 05:30 WBC 7.8 RBC 3.47 L Hgb 11.7 L Hct 34.2 L MCV 98.7 MCH 33.6 MCHC 34.1 RDW 14.0 Plt Count 193 Neut % (Auto) 65.1 Lymph % (Auto) 25.2 [place] % (Auto) 6.6 Eos % (Auto) 2.3 Baso % (Auto) 0.8 Neut # (Auto) 5100 Lymph # (Auto) 2000 [place] # (Auto) 500 Eos # (Auto) 200 Baso # (Auto) 100 Sodium 137 Potassium 4.2 Chloride 109 H Carbon Dioxide 21 L BUN 43 H Creatinine 1.65 H Estimated GFR 41 L BUN/Creatinine Ratio 26.1 H Glucose 147 H POC Whole Bld Glucose 120 H 120 H Calcium 8.7 Magnesium 2.1 08/16/24 08/16/24 07:30 11:43 WBC RBC Hgb Hct MCV MCH MCHC RDW Plt Count Neut % (Auto) Lymph % (Auto) [place] % (Auto) Eos % (Auto) Baso % (Auto) Neut # (Auto) Lymph # (Auto) [place] # (Auto) Eos # (Auto) Baso # (Auto) Sodium Potassium Chloride Carbon Dioxide BUN Creatinine Estimated GFR BUN/Creatinine Ratio Glucose POC Whole Bld Glucose 160 H 147 H Calcium Magnesium ON LICENSE OF [facility] Medical History History of kidney stones History of COVID-19 Arthritis Hyperlipidemia associated with type 2 diabetes mellitus Essential hypertension Insulin dependent diabetes mellitus Surgical History History of tonsillectomy Family History Mother Dementia Father Heart attack Social History household members: none Smoking Status: Never smoker alcohol intake: former Discharge Assessment & Plan Assessment and Plan Assessment: 1. Sepsis without shock secondary to Acute cystitis, improved. - postive UA, history of enterobacter bacteremia. -treated with antibiotics. 2. Acute septic encephalopathy, and KELLY on CKD secondary to #1 above, improved. Plan of Treatment: Discharge home, levofloxacin 250 daily for 5 days. Follow up with primary care within a week. He also missed his last nephrology appointment in his urged to reschedule this as well. Discharge Plan Discharge Plan Patient Disposition: Home Provider Discharge Comment: Blood and urine culture negative. Stable for discharge home with 5 days of oral antibiotics and close follow up. Discharge orders & Medications Prescriptions: New levofloxacin 250 mg tablet 250 mg PO DAILY Qty: 5 0RF Continued allopurinol 300 mg tablet 300 mg PO DAILY insulin glargine [Lantus Solostar U-100 Insulin] 100 unit/mL (3 mL) Insulin Pen 28 unit SUBCUT QPM atorvastatin 10 mg Tablet 10 mg PO BEDTIME allopurinol 100 mg Tablet 100 mg PO BEDTIME finasteride 5 mg Tablet 5 mg PO BEDTIME lisinopril 10 mg Tablet 10 mg PO BEDTIME sodium bicarbonate 650 mg tablet 650 mg BID metformin 500 mg tablet extended release 24 hr 500 mg PO BEDTIME Trulicity 1.5 mg/0.5 mL pen injector 1.5 mg SUBCUT WEEKLY doxazosin 8 mg tablet 8 mg PO DAILY Discharge Health Status Multidrug resistant organism: No MDRO Diet/Activity/Treatments Diet: Low-protein/Renal Activity: As tolerated. Skin/Wound/Dressing Care Report to your healthcare provider any signs of infection, such as:: chills, fever and night sweats Visit Report/Discharge Packet Instructions: DI for Urinary Tract Infection (UTI) Stand Alone Forms: Patient Portal/API
== END 2024-08-16 14:00 | disposition home or self-care (01) | DRG 871 ==
LOC: ED 12:46 → AC 12:50
PROVIDERS: Admitting Provider Internal Medicine; Emergency Provider Emergency Medicine; Referring Provider Emergency Medicine; Visit Provider Internal Medicine
DX: A41.9 Sepsis, unspecified organism (principal); G93.41 Metabolic encephalopathy; N30.00 Acute cystitis without hematuria; N17.9 Acute kidney failure, unspecified; N18.30 Chronic kidney disease, stage 3 unspecified; E11.22 Type 2 diabetes mellitus with diabetic chronic kidney disease; I12.9 Hypertensive chronic kidney disease with stage 1 through stage 4 chronic kidney disease, or unspecified chronic kidney disease; F32.A Depression, unspecified; N40.0 Benign prostatic hyperplasia without lower urinary tract symptoms; E78.5 Hyperlipidemia, unspecified; R65.20 Severe sepsis without septic shock; Z79.4 Long term (current) use of insulin; Z79.85 Long-term (current) use of injectable non-insulin antidiabetic drugs
CPT/HCPCS: 36415; 71045; 80048; 80053; 81001; 82962; 83036; 83605; 83690; 83735; 83880; 84145; 84484; 85025; 87040; 87086; 87633; 96365; 96366; 96367; 97110; 97116; 97129; 97130; 97162; 97166; 97530; 99284; J0696; J1650; J1815